=== PATIENT | male | born 1960 | race Caucasian/White ===

== ENCOUNTER 2018-01-21 11:13 | Inpatient (IN) ==
[2018-01-21] MEDS ORDERED: Ipratropium/Albuterol Neb 3 ML IH ONE (11:20)
[2018-01-21] MEDS ORDERED: predniSONE 20 MG TABLET PO ONE (11:20)
--- NOTE | 2018-01-21 11:22 | Emergency Department Note ---
Disposition Clinical Impression: Alcoholic intoxication, Depression, Accelerated hypertension, COPD exacerbation , Hyponatremia, Asymptomatic hypertension, Alcohol abuse Disposition: Admitted As Inpatient Condition: Good General Adult HPI - General Stated complaint: high blood pressure/MIGUELITO Time Seen by Provider: 01/21/18 11:15 - Related Data Home Medications Medication Instructions Recorded Confirmed No Known Home Drugs 01/21/18 01/21/18 Allergies Allergy/AdvReac Type Severity Reaction Status Date / Time No Known Allergies Allergy Verified 10/04/15 20:53 Past Medical History - Past Medical History Medical history: Reports: COPD Surgical history: Reports: orthopedic, other Psychiatric history: Reports: other (Alcohol dependence) - Social History Smoking Status: Former smoker Smokeless Tobacco Status: No Alcohol use: Reports: heavy, recent Drug use: Reports: prescription drug abuse Course Vital Signs Temperature 97.6 F 01/21/18 11:18 Pulse Rate 113 01/21/18 11:18 Respiratory Rate 28 01/21/18 11:18 Blood Pressure 214/117 01/21/18 11:18 O2 Sat by Pulse Oximetry 99 01/21/18 11:18 Temperature 97.6 F 01/21/18 11:18 Pulse Rate 102 01/21/18 12:44 Respiratory Rate 15 01/21/18 12:44 Blood Pressure 161/94 01/21/18 12:44 O2 Sat by Pulse Oximetry 95 01/21/18 12:44 Oxygen Delivery Oxygen Delivery Nasal Cannula Medical Decision Making - Lab Data Result diagrams: 01/21/18 11:37 01/21/18 11:37 Lab Results 01/21/18 01/21/18 01/21/18 Range/Units 11:37 11:37 11:37 WBC 5.3 (4.3-11.1) K/mcL RBC 4.91 (4.19-5.50) M/mcL Hgb 15.5 (12.9-16.9) g/dL Hct 46.4 (37.5-50.1) % MCV 94.5 (83.0-100.0) fL MCH 31.6 (28.0-33.3) pg MCHC 33.4 (31.6-35.5) g/dL RDW 13.7 (11.5-14.5) % Plt Count 194 (140-400) K/mcL MPV 9.3 L (9.4-12.4) fL Immature Gran % 0.2 (0-4) % Seg Neutrophils % 52.1 % Lymphocytes % 35.2 % Monocytes % 10.7 % Eosinophils % 0.9 % Basophils % 0.9 % Neutrophils # 2.8 (1.6-8.9) K/mcL Lymphocytes # 1.9 (0.6-4.6) K/mcL Monocytes # 0.6 (0.0-1.3) K/mcL Eosinophils # 0.1 (0.0-0.6) K/mcL Basophils # 0.1 (0.0-0.2) K/mcL PT (9.4-12.1) Seconds INR Sodium 129 L (136-145) mEq/L Potassium 4.5 (3.5-5.1) mEq/L Chloride 91 L (98-107) mEq/L Carbon Dioxide 24 (23-29) mEq/L BUN 6 (6-20) mg/dL Creatinine 0.59 L (0.70-1.30) mg/dL Est GFR ( Amer) > 60 (> 60) Est GFR (Non-Af Amer) > 60 (> 60) BUN/Creatinine Ratio 10 (6-26) Glucose 103 (70-105) mg/dL Calculated Osmolality 266 L (280-300) Calcium 9.2 (8.6-10.3) mg/dL Magnesium (1.6-2.6) mg/dL Total Bilirubin 0.4 (0.3-1.0) mg/dL AST 80 H (13-39) Units/L ALT 71 H (7-52) Units/L Alkaline Phosphatase 76 (34-104) Units/L Troponin I (< 0.04) ng/mL B-Natriuretic Peptide 25 (Less than 100) pg/mL Serum Total Protein 7.9 (6.4-8.9) g/dL Albumin 4.9 (3.5-5.7) g/dL Globulin 3.0 (2.4-3.5) g/dL Albumin/Globulin Ratio 1.6 (1.1-2.2) Urine Color (Yellow) Urine Clarity (Clear) Urine pH (5.0-8.0) pH Units Ur Specific [place] (1.010-1.025) Urine Protein (Neg-Trace) mg/dL Urine Glucose (UA) (Normal) mg/dL Urine Ketones (Negative) mg/dL Urine Blood (Negative) Urine Nitrite (Negative) Urine Bilirubin (Negative) Urine Urobilinogen (Normal) mg/dL Ur Leukocyte Esterase (Negative) Salicylates (15.0-30.0) mg/dL Urine Opiates Screen ([place]=114) ng/mL Acetaminophen (10-20) mcg/mL Ur Barbiturates Screen (Ksurjs=268) ng/mL Ur Phencyclidine Scrn (Cutoff=25) ng/mL Ur Amphetamines Screen (Vamkze=4938) ng/mL U Benzodiazepines Scrn (Aukygm=900) ng/mL Urine Cocaine Screen (Cutoff= 300) ng/mL U Marijuana (THC) Screen (Cutoff = 50) ng/mL Ur Drug Screen Interp Ethyl Alcohol (Less than 10) mg/dL 01/21/18 01/21/18 01/21/18 Range/Units 11:37 11:37 12:01 WBC (4.3-11.1) K/mcL RBC (4.19-5.50) M/mcL Hgb (12.9-16.9) g/dL Hct (37.5-50.1) % MCV (83.0-100.0) fL MCH (28.0-33.3) pg MCHC (31.6-35.5) g/dL RDW (11.5-14.5) % Plt Count (140-400) K/mcL MPV (9.4-12.4) fL Immature Gran % (0-4) % Seg Neutrophils % % Lymphocytes % % Monocytes % % Eosinophils % % Basophils % % Neutrophils # (1.6-8.9) K/mcL Lymphocytes # (0.6-4.6) K/mcL Monocytes # (0.0-1.3) K/mcL Eosinophils # (0.0-0.6) K/mcL Basophils # (0.0-0.2) K/mcL PT 10.6 (9.4-12.1) Seconds INR 0.9 Sodium (136-145) mEq/L Potassium (3.5-5.1) mEq/L Chloride (98-107) mEq/L Carbon Dioxide (23-29) mEq/L BUN (6-20) mg/dL Creatinine (0.70-1.30) mg/dL Est GFR ( Amer) (> 60) Est GFR (Non-Af Amer) (> 60) BUN/Creatinine Ratio (6-26) Glucose (70-105) mg/dL Calculated Osmolality (280-300) Calcium (8.6-10.3) mg/dL Magnesium 2.1 (1.6-2.6) mg/dL Total Bilirubin (0.3-1.0) mg/dL AST (13-39) Units/L ALT (7-52) Units/L Alkaline Phosphatase (34-104) Units/L Troponin I 0.03 (< 0.04) ng/mL B-Natriuretic Peptide (Less than 100) pg/mL Serum Total Protein (6.4-8.9) g/dL Albumin (3.5-5.7) g/dL Globulin (2.4-3.5) g/dL Albumin/Globulin Ratio (1.1-2.2) Urine Color Yellow (Yellow) Urine Clarity Clear (Clear) Urine pH 6.0 (5.0-8.0) pH Units Ur Specific [place] 1.013 (1.010-1.025) Urine Protein Negative (Neg-Trace) mg/dL Urine Glucose (UA) Normal (Normal) mg/dL Urine Ketones Negative (Negative) mg/dL Urine Blood Negative (Negative) Urine Nitrite Negative (Negative) Urine Bilirubin Negative (Negative) Urine Urobilinogen Normal (Normal) mg/dL Ur Leukocyte Esterase Negative (Negative) Salicylates < 2.5 L (15.0-30.0) mg/dL Urine Opiates Screen (Dknwnf=458) ng/mL Acetaminophen 15 (10-20) mcg/mL Ur Barbiturates Screen (Odkpjc=772) ng/mL Ur Phencyclidine Scrn (Cutoff=25) ng/mL Ur Amphetamines Screen (Jdcpvh=3399) ng/mL U Benzodiazepines Scrn (Fcapri=587) ng/mL Urine Cocaine Screen (Cutoff= 300) ng/mL U Marijuana (THC) Screen (Cutoff = 50) ng/mL Ur Drug Screen Interp Ethyl Alcohol 228 H (Less than 10) mg/dL 01/21/18 Range/Units 12:01 WBC (4.3-11.1) K/mcL RBC (4.19-5.50) M/mcL Hgb (12.9-16.9) g/dL Hct (37.5-50.1) % MCV (83.0-100.0) fL MCH (28.0-33.3) pg MCHC (31.6-35.5) g/dL RDW (11.5-14.5) % Plt Count (140-400) K/mcL MPV (9.4-12.4) fL Immature Gran % (0-4) % Seg Neutrophils % % Lymphocytes % % Monocytes % % Eosinophils % % Basophils % % Neutrophils # (1.6-8.9) K/mcL Lymphocytes # (0.6-4.6) K/mcL Monocytes # (0.0-1.3) K/mcL Eosinophils # (0.0-0.6) K/mcL Basophils # (0.0-0.2) K/mcL PT (9.4-12.1) Seconds INR Sodium (136-145) mEq/L Potassium (3.5-5.1) mEq/L Chloride (98-107) mEq/L Carbon Dioxide (23-29) mEq/L BUN (6-20) mg/dL Creatinine (0.70-1.30) mg/dL Est GFR ( Amer) (> 60) Est GFR (Non-Af Amer) (> 60) BUN/Creatinine Ratio (6-26) Glucose (70-105) mg/dL Calculated Osmolality (280-300) Calcium (8.6-10.3) mg/dL Magnesium (1.6-2.6) mg/dL Total Bilirubin (0.3-1.0) mg/dL AST (13-39) Units/L ALT (7-52) Units/L Alkaline Phosphatase (34-104) Units/L Troponin I (< 0.04) ng/mL B-Natriuretic Peptide (Less than 100) pg/mL Serum Total Protein (6.4-8.9) g/dL Albumin (3.5-5.7) g/dL Globulin (2.4-3.5) g/dL Albumin/Globulin Ratio (1.1-2.2) Urine Color (Yellow) Urine Clarity (Clear) Urine pH (5.0-8.0) pH Units Ur Specific [place] (1.010-1.025) Urine Protein (Neg-Trace) mg/dL Urine Glucose (UA) (Normal) mg/dL Urine Ketones (Negative) mg/dL Urine Blood (Negative) Urine Nitrite (Negative) Urine Bilirubin (Negative) Urine Urobilinogen (Normal) mg/dL Ur Leukocyte Esterase (Negative) Salicylates (15.0-30.0) mg/dL Urine Opiates Screen Negative (Nxgpwy=782) ng/mL Acetaminophen (10-20) mcg/mL Ur Barbiturates Screen Negative (Qporuy=605) ng/mL Ur Phencyclidine Scrn Negative (Cutoff=25) ng/mL Ur Amphetamines Screen Negative (Qukzxn=2422) ng/mL U Benzodiazepines Scrn Negative (Kjpawk=949) ng/mL Urine Cocaine Screen Negative (Cutoff= 300) ng/mL U Marijuana (THC) Screen Positive H (Cutoff = 50) ng/mL Ur Drug Screen Interp See Below Ethyl Alcohol (Less than 10) mg/dL Attestation Statement - Attestation Attestation: I examined this patient and my medical decision-making was reviewed with the Resident Physician. I agree with the documented findings, disposition and treatment plan as described except to the extent set forth below. Face to face time provided Patient to ED via EMS from [facility] due to hypertension and dyspnea. He has a known history of active tobacco use and COPD. He is hypertensive and tachypneic upon arrival with increased work of breathing. He also admits to drinking alcohol today and has a history of heavy alcohol use. He is being seen for behavioral issues at the mental health clinic prior to arrival
[2018-01-21] MEDS ORDERED: Folic Acid 1 MG in D5% in Water 50 ML IVPB ONE (11:25)
--- NOTE | 2018-01-21 11:41 | Emergency Department Note ---
Disposition Clinical Impression: Accelerated hypertension, COPD exacerbation, Hyponatremia, Asymptomatic hypertension, Alcohol abuse Alcoholic intoxication Qualifiers: Complication of substance-induced condition: with unspecified complication Qualified Code(s): F10.929 - Alcohol use, unspecified with intoxication, unspecified Depression Qualifiers: Depression Type: unspecified Qualified Code(s): F32.9 - Major depressive disorder, single episode, unspecified Disposition: Admitted As Inpatient Condition: Good Time of Disposition: 12:45 General Adult HPI - General Stated complaint: high blood pressure/MIGUELITO Time Seen by Provider: 01/21/18 11:15 Source: patient, EMS Mode of arrival: EMS Limitations: no limitations Nursing Notes Reviewed: Yes Vital Signs Reviewed: Yes - History of Present Illness HPI Narrative: 57-year-old male history of COPD presents emergency department via EMS with multiple complaints. Patient presents with elevated blood pressure 200/116. He checked in at [facility] hoping to obtain some help with his drinking. He had 9 beers today. States he typically goes through 30 beers every few days. He has gone into alcohol withdrawal in the past and feels similar to this today. He has very labored breathing as well. He states this has been ongoing for several days now and probably since his diagnosis of COPD. He recently had a nebulizer sent to his home but does not wear oxygen at home. He denies any chest pain at this time. There was reports that he also had suicidal ideation which she does deny at this time. Denies any other drug use. He does not take anything for blood pressure. No recent antibiotic or steroid use. He states he was recently admitted at [facility]. - Related Data Home Medications Medication Instructions Recorded Confirmed No Known Home Drugs 01/21/18 01/21/18 Allergies Allergy/AdvReac Type Severity Reaction Status Date / Time No Known Allergies Allergy Verified 10/04/15 20:53 All systems ED: reviewed and negative except as stated. Review of Systems: As Per HPI Constitutional: Denies: fever, chills ENT ED: Denies: congestion Cardiovascular: Denies: chest pain Respiratory: Reports: cough, dyspnea, wheezes. Denies: hemoptysis, sputum production Gastrointestinal: Denies: abdominal pain, nausea, vomiting Genitourinary: Denies: dysuria Musculoskeletal: Denies: back pain Integumentary: Denies: rash, abrasion Neurological: Denies: headache Psychiatric: Reports: depression. Denies: suicidal thoughts, homicidal thoughts , auditory hallucinations, visual hallucinations Past Medical History - Past Medical History Attestation: Yes The following information was validated with the patient. Source: patient Medical history: Reports: COPD Surgical history: Reports: orthopedic, other Psychiatric history: Reports: other (Alcohol dependence) - Social History Smoking Status: Former smoker Smokeless Tobacco Status: No Alcohol use: Reports: heavy, recent Drug use: Reports: prescription drug abuse Physical Exam - General Limitations: no limitations General appearance: alert, anxious, in distress (Mild respiratory), other ( Shaky and slightly tremulous) - Head Head exam: atraumatic, normocephalic, normal inspection - Eye Eye exam: Present: normal appearance, PERRL, EOMI - ENT ENT exam: normal exam, normal oropharynx, mucous membranes moist - Neck Neck exam: Present: normal inspection, full ROM, trachea midline - Chest Chest inspection: Present: normal inspection, symmetric chest wall rise. Absent : tenderness, rash - Respiratory Respiratory exam: Present: respiratory distress, wheezes, prolonged expiratory phase, other (pursed lips, poor tight aeration) - Cardiovascular Cardiovascular exam: Present: normal rhythm, tachycardia, normal heart sounds - Abdominal Exam Abdominal exam: Present: soft, Non-Tender. Absent: tenderness, distention, guarding, rebound, rigidity - Extremities Exam Extremities exam: Present: normal inspection, full ROM, normal capillary refill. Absent: tenderness, pedal edema, calf tenderness - Neurological Exam Neurological exam: Present: alert, oriented X3 - Psychiatric Psychiatric exam: Present: normal affect, anxious - Skin Skin exam: Present: warm, dry, intact, normal color. Absent: rash, cyanosis, diaphoresis Course Course Narrative: Patient presents with likely COPD exacerbation and reports of suicidal ideation as he was sent here from sciatica pain for clearance. On examination he has mild respiratory distress. Pursed lips with prolonged expiratory phase. Tight aeration with poor air movement. He is also tachycardic and there is a report that he may have received a breathing treatment prior to arrival here. He will likely require admission for his accelerated hypertension COPD exacerbation, possible alcohol withdrawal, and need for psychiatric evaluation. He is in agreement with this plan. Thiamine infusion. - Reevaluation(s) Reevaluation #1: Review of his labs show all intoxication to 28. He also has positive for marijuana. He is also hyponatremia 129 which is the same as his most recent prior of value 2 years ago. Suspect this could be likely secondary to be beer potomania given his history of alcohol abuse. He is otherwise asymptomatic interns of his hypertension. Chest pain. Troponin not elevated. EKG without ischemic changes. Chest x-ray consistent with COPD with no focal opacities concerning for pneumonia. On repeat evaluation patient has better aeration after breathing treatment. He remains 95% on room air. He states he feels better but continues to have a prolonged expiratory phase. His blood pressure has spontaneously improved without intervention down to systolic 164. Patient will be admitted for alcohol intoxication, COPD exacerbation, concern for alcohol withdrawal given his history, hypertension and depression. Again patient denies any suicidal ideation Time: 12:46 - Consultations Consultation #1: Spoke with on-call hospitalist rhonda Gr to admit for ETOH intoxication, hypertension, COPD exacerbation. No further orders at this time Time: 12:52 Vital Signs Temperature 97.6 F 01/21/18 11:18 Pulse Rate 113 01/21/18 11:18 Respiratory Rate 28 01/21/18 11:18 Blood Pressure 214/117 01/21/18 11:18 O2 Sat by Pulse Oximetry 99 01/21/18 11:18 Temperature 97.6 F 01/21/18 11:18 Pulse Rate 102 01/21/18 12:44 Respiratory Rate 15 01/21/18 12:44 Blood Pressure 161/94 01/21/18 12:44 O2 Sat by Pulse Oximetry 95 01/21/18 12:44 Oxygen Delivery Oxygen Delivery Nasal Cannula Medical Decision Making - MDM Narrative Medical decision making narrative: Patient was discussed with my attending physician who agrees with ED management and final disposition. They independently evaluated the patient. Please refer to their attestation to this encounter for additional information. This note was generated by [employer] voice recognition software and as a result grammatical or spelling errors may occur using this program. - Medical Records Medical records reviewed: Yes I reviewed the patient's medical records. - Lab Data Lab results reviewed: Yes I reviewed the patient's lab results. Result diagrams: 01/21/18 11:37 01/21/18 11:37 Lab Results 01/21/18 01/21/18 01/21/18 Range/Units 11:37 11:37 11:37 WBC 5.3 (4.3-11.1) K/mcL RBC 4.91 (4.19-5.50) M/mcL Hgb 15.5 (12.9-16.9) g/dL Hct 46.4 (37.5-50.1) % MCV 94.5 (83.0-100.0) fL MCH 31.6 (28.0-33.3) pg MCHC 33.4 (31.6-35.5) g/dL RDW 13.7 (11.5-14.5) % Plt Count 194 (140-400) K/mcL MPV 9.3 L (9.4-12.4) fL Immature Gran % 0.2 (0-4) % Seg Neutrophils % 52.1 % Lymphocytes % 35.2 % Monocytes % 10.7 % Eosinophils % 0.9 % Basophils % 0.9 % Neutrophils # 2.8 (1.6-8.9) K/mcL Lymphocytes # 1.9 (0.6-4.6) K/mcL Monocytes # 0.6 (0.0-1.3) K/mcL Eosinophils # 0.1 (0.0-0.6) K/mcL Basophils # 0.1 (0.0-0.2) K/mcL PT (9.4-12.1) Seconds INR Sodium 129 L (136-145) mEq/L Potassium 4.5 (3.5-5.1) mEq/L Chloride 91 L (98-107) mEq/L Carbon Dioxide 24 (23-29) mEq/L BUN 6 (6-20) mg/dL Creatinine 0.59 L (0.70-1.30) mg/dL Est GFR ( Amer) > 60 (> 60) Est GFR (Non-Af Amer) > 60 (> 60) BUN/Creatinine Ratio 10 (6-26) Glucose 103 (70-105) mg/dL Calculated Osmolality 266 L (280-300) Calcium 9.2 (8.6-10.3) mg/dL Magnesium (1.6-2.6) mg/dL Total Bilirubin 0.4 (0.3-1.0) mg/dL AST 80 H (13-39) Units/L ALT 71 H (7-52) Units/L Alkaline Phosphatase 76 (34-104) Units/L Troponin I (< 0.04) ng/mL B-Natriuretic Peptide 25 (Less than 100) pg/mL Serum Total Protein 7.9 (6.4-8.9) g/dL Albumin 4.9 (3.5-5.7) g/dL Globulin 3.0 (2.4-3.5) g/dL Albumin/Globulin Ratio 1.6 (1.1-2.2) Urine Color (Yellow) Urine Clarity (Clear) Urine pH (5.0-8.0) pH Units Ur Specific [place] (1.010-1.025) Urine Protein (Neg-Trace) mg/dL Urine Glucose (UA) (Normal) mg/dL Urine Ketones (Negative) mg/dL Urine Blood (Negative) Urine Nitrite (Negative) Urine Bilirubin (Negative) Urine Urobilinogen (Normal) mg/dL Ur Leukocyte Esterase (Negative) Salicylates (15.0-30.0) mg/dL Urine Opiates Screen (Nnyxuo=746) ng/mL Acetaminophen (10-20) mcg/mL Ur Barbiturates Screen (Uluuzb=782) ng/mL Ur Phencyclidine Scrn (Cutoff=25) ng/mL Ur Amphetamines Screen (Fkpujk=3151) ng/mL U Benzodiazepines Scrn (Qadxym=243) ng/mL Urine Cocaine Screen (Cutoff= 300) ng/mL U Marijuana (THC) Screen (Cutoff = 50) ng/mL Ur Drug Screen Interp Ethyl Alcohol (Less than 10) mg/dL 01/21/18 01/21/18 01/21/18 Range/Units 11:37 11:37 12:01 WBC (4.3-11.1) K/mcL RBC (4.19-5.50) M/mcL Hgb (12.9-16.9) g/dL Hct (37.5-50.1) % MCV (83.0-100.0) fL MCH (28.0-33.3) pg MCHC (31.6-35.5) g/dL RDW (11.5-14.5) % Plt Count (140-400) K/mcL MPV (9.4-12.4) fL Immature Gran % (0-4) % Seg Neutrophils % % Lymphocytes % % Monocytes % % Eosinophils % % Basophils % % Neutrophils # (1.6-8.9) K/mcL Lymphocytes # (0.6-4.6) K/mcL Monocytes # (0.0-1.3) K/mcL Eosinophils # (0.0-0.6) K/mcL Basophils # (0.0-0.2) K/mcL PT 10.6 (9.4-12.1) Seconds INR 0.9 Sodium (136-145) mEq/L Potassium (3.5-5.1) mEq/L Chloride (98-107) mEq/L Carbon Dioxide (23-29) mEq/L BUN (6-20) mg/dL Creatinine (0.70-1.30) mg/dL Est GFR ( Amer) (> 60) Est GFR (Non-Af Amer) (> 60) BUN/Creatinine Ratio (6-26) Glucose (70-105) mg/dL Calculated Osmolality (280-300) Calcium (8.6-10.3) mg/dL Magnesium 2.1 (1.6-2.6) mg/dL Total Bilirubin (0.3-1.0) mg/dL AST (13-39) Units/L ALT (7-52) Units/L Alkaline Phosphatase (34-104) Units/L Troponin I 0.03 (< 0.04) ng/mL B-Natriuretic Peptide (Less than 100) pg/mL Serum Total Protein (6.4-8.9) g/dL Albumin (3.5-5.7) g/dL Globulin (2.4-3.5) g/dL Albumin/Globulin Ratio (1.1-2.2) Urine Color Yellow (Yellow) Urine Clarity Clear (Clear) Urine pH 6.0 (5.0-8.0) pH Units Ur Specific [place] 1.013 (1.010-1.025) Urine Protein Negative (Neg-Trace) mg/dL Urine Glucose (UA) Normal (Normal) mg/dL Urine Ketones Negative (Negative) mg/dL Urine Blood Negative (Negative) Urine Nitrite Negative (Negative) Urine Bilirubin Negative (Negative) Urine Urobilinogen Normal (Normal) mg/dL Ur Leukocyte Esterase Negative (Negative) Salicylates < 2.5 L (15.0-30.0) mg/dL Urine Opiates Screen (Vwabmd=148) ng/mL Acetaminophen 15 (10-20) mcg/mL Ur Barbiturates Screen (Fotwwl=645) ng/mL Ur Phencyclidine Scrn (Cutoff=25) ng/mL Ur Amphetamines Screen (Imoqie=3637) ng/mL U Benzodiazepines Scrn (Fyybxw=444) ng/mL Urine Cocaine Screen (Cutoff= 300) ng/mL U Marijuana (THC) Screen (Cutoff = 50) ng/mL Ur Drug Screen Interp Ethyl Alcohol 228 H (Less than 10) mg/dL 01/21/18 Range/Units 12:01 WBC (4.3-11.1) K/mcL RBC (4.19-5.50) M/mcL Hgb (12.9-16.9) g/dL Hct (37.5-50.1) % MCV (83.0-100.0) fL MCH (28.0-33.3) pg MCHC (31.6-35.5) g/dL RDW (11.5-14.5) % Plt Count (140-400) K/mcL MPV (9.4-12.4) fL Immature Gran % (0-4) % Seg Neutrophils % % Lymphocytes % % Monocytes % % Eosinophils % % Basophils % % Neutrophils # (1.6-8.9) K/mcL Lymphocytes # (0.6-4.6) K/mcL Monocytes # (0.0-1.3) K/mcL Eosinophils # (0.0-0.6) K/mcL Basophils # (0.0-0.2) K/mcL PT (9.4-12.1) Seconds INR Sodium (136-145) mEq/L Potassium (3.5-5.1) mEq/L Chloride (98-107) mEq/L Carbon Dioxide (23-29) mEq/L BUN (6-20) mg/dL Creatinine (0.70-1.30) mg/dL Est GFR ( Amer) (> 60) Est GFR (Non-Af Amer) (> 60) BUN/Creatinine Ratio (6-26) Glucose (70-105) mg/dL Calculated Osmolality (280-300) Calcium (8.6-10.3) mg/dL Magnesium (1.6-2.6) mg/dL Total Bilirubin (0.3-1.0) mg/dL AST (13-39) Units/L ALT (7-52) Units/L Alkaline Phosphatase (34-104) Units/L Troponin I (< 0.04) ng/mL B-Natriuretic Peptide (Less than 100) pg/mL Serum Total Protein (6.4-8.9) g/dL Albumin (3.5-5.7) g/dL Globulin (2.4-3.5) g/dL Albumin/Globulin Ratio (1.1-2.2) Urine Color (Yellow) Urine Clarity (Clear) Urine pH (5.0-8.0) pH Units Ur Specific [place] (1.010-1.025) Urine Protein (Neg-Trace) mg/dL Urine Glucose (UA) (Normal) mg/dL Urine Ketones (Negative) mg/dL Urine Blood (Negative) Urine Nitrite (Negative) Urine Bilirubin (Negative) Urine Urobilinogen (Normal) mg/dL Ur Leukocyte Esterase (Negative) Salicylates (15.0-30.0) mg/dL Urine Opiates Screen Negative (Qitkgo=334) ng/mL Acetaminophen (10-20) mcg/mL Ur Barbiturates Screen Negative (Erfkjb=206) ng/mL Ur Phencyclidine Scrn Negative (Cutoff=25) ng/mL Ur Amphetamines Screen Negative (Gjusga=1610) ng/mL U Benzodiazepines Scrn Negative (Tbenip=191) ng/mL Urine Cocaine Screen Negative (Cutoff= 300) ng/mL U Marijuana (THC) Screen Positive H (Cutoff = 50) ng/mL Ur Drug Screen Interp See Below Ethyl Alcohol (Less than 10) mg/dL - Radiology Data Radiology results reviewed: Yes I reviewed the patient's radiology results. Chest X-Ray 01/21/18 11:18 IMPRESSION: 1. Moderate rotation limits evaluation of the mediastinum which otherwise appears normal. 2. COPD with no acute pneumonia. D/ / 01/21/2018 11:50:50 Kaiser Keys MD / david Interpreting Provider: Kaiser Keys MD - EKG Data EKG #1 EKG attestation: Yes I reviewed and interpreted this EKG. EKG results narrative: EKG performed 1128 sinus tachycardia 111 beats per minute, normal axis, no ST elevation or depression, intervals within normal limits. Compared to prior EKG performed 10/05/2015 showing similar consistent findings of sinus tachycardia. No acute ischemic changes.
[2018-01-21 11:49] LABS: Basophils # 0.1 K/mcL (0.0-0.2); Basophils % 0.9 %; Eosinophils # 0.1 K/mcL (0.0-0.6); Eosinophils % 0.9 %; Hematocrit 46.4 % (37.5-50.1); Hemoglobin 15.5 g/dL (12.9-16.9); Immature Granulocytes % 0.2 % (0-4); Lymphocytes # 1.9 K/mcL (0.6-4.6); Lymphocytes % 35.2 %; Mean Corpuscular HGB Conc 33.4 g/dL (31.6-35.5); Mean Corpuscular Hemoglobin 31.6 pg (28.0-33.3); Mean Corpuscular Volume 94.5 fL (83.0-100.0); Mean Platelet Volume 9.3 fL (9.4-12.4); Monocytes # 0.6 K/mcL (0.0-1.3); Monocytes % 10.7 %; Neutrophils # 2.8 K/mcL (1.6-8.9); Platelet Count 194 K/mcL (140-400); Red Blood Count 4.91 M/mcL (4.19-5.50); Red Cell Distribution Width 13.7 % (11.5-14.5); Segmented Neutrophils % 52.1 %
[2018-01-21 11:57] LABS: INR 0.9; Prothrombin Time 10.6 Seconds (9.4-12.1)
[2018-01-21] MEDS ORDERED: Thiamine (B-1) 100 MG, Folic Acid 1 MG, MVI, adult with vitamin K 10 ML in 0.9 % Sodi... IVPB ONE (12:00)
[2018-01-21 12:12] LABS: Bilirubin,Urine Negative (Negative); Blood,Urine Negative (Negative); Clarity,Urine Clear (Clear); Color,Urine Yellow (Yellow); Glucose,Urine (UA) Normal (Normal); Ketones,Urine Negative (Negative); Leukocyte Esterase,Urine Negative (Negative); Nitrite,Urine Negative (Negative); Protein,Urine Negative (Neg-Trace); Specific Gravity,Urine 1.013 (1.010-1.025); Urobilinogen,Urine Normal (Normal)
[2018-01-21 12:15] LABS: Troponin I 0.03 ng/mL (< 0.04)
[2018-01-21 12:40] LABS: Acetaminophen 15 mcg/mL (10-20); Alanine Aminotransferase 71 Units/L (7-52); Albumin 4.9 g/dL (3.5-5.7); Albumin/Globulin Ratio 1.6 (1.1-2.2); Alkaline Phosphatase 76 Units/L (34-104); Aspartate Amino Transferase 80 Units/L (13-39); BUN/Creatinine Ratio 10 (6-26); Bilirubin,Total 0.4 mg/dL (0.3-1.0); Blood Urea Nitrogen 6 mg/dL (6-20); Calcium 9.2 mg/dL (8.6-10.3); Carbon Dioxide 24 mEq/L (23-29); Chloride 91 mEq/L (98-107); Ethanol 228 mg/dL (Less than 10); Glucose 103 mg/dL (70-105); Magnesium 2.1 mg/dL (1.6-2.6); Osmolality,Calculated 266 (280-300); Potassium 4.5 mEq/L (3.5-5.1); Salicylate < 2.5 mg/dL (15.0-30.0); Sodium 129 mEq/L (136-145); Total Protein 7.9 g/dL (6.4-8.9); eGFR For Non-African Americans > 60 (> 60)
[2018-01-21 12:44] LABS: Amphetamine Screen,Urine Negative ng/mL (Cutoff=1000); Barbiturate Screen,Urine Negative ng/mL (Cutoff=200); Benzodiazepines Screen,Urine Negative ng/mL (Cutoff=200); Cannabinoid Screen,Urine Positive ng/mL (Cutoff = 50); Cocaine Screen,Urine Negative ng/mL (Cutoff= 300); Opiate Screen,Urine Negative ng/mL (Cutoff=300); Phencyclidine Screen,Urine Negative ng/mL (Cutoff=25)
[2018-01-21] MEDS ORDERED: Naloxone 0.4 MG/ML INJ IVP PRN (13:24)
[2018-01-21] MEDS ORDERED: Ondansetron ODT 4 MG TAB.RAPDIS SL PRN (13:24)
[2018-01-21] MEDS ORDERED: *HR* Promethazine 25 MG/ML VIAL IVP PRN (13:30)
[2018-01-21] MEDS: *HR* LORazepam 2 MG/ML VIAL IVP PRN ×4 (14:03→21:14)
--- NOTE | 2018-01-21 14:09 | Internal Med History&Physical ---
Date of Encounter: 01/21/18 Time of Encounter: 13:30 Internal Medicine - H&P: HPI Chief complaint: Alcohol intoxication and worsening shortness of breath Admitted From: Emergency Dept Plans for Post Hospital Care: Home History of present illness: Mr. Martínez is a 57 year old male with a known past medical history of COPD, not on home oxygen dependent, hypertension, chronic tobacco dependence, substance abuse, chronic alcoholic dependence holdings almost to 24 to 30 beers everyday, who had his last alcohol this morning before he came to the ER presented to the ER today complaining about he wants to quit drinking alcohol. Also he has been having worsening shortness of breath from last 2 to 3 days which have not improved even after using more frequent nebulizers at home. He denied any sick contacts at home. He denied any cough/expectoration. He does smoke one pack per day. When he first presented to the ER patient was very hypoxic and in severe respiratory distress. He was required 6 L oxygen initially through nasal cannula, currently he is at 2 L O2. He does have uncontrolled blood pressure initially BP @ 214/117 Past Med Surg Social Fam HX - Past Medical History Medical history: COPD Psychiatric history: other (Alcohol dependence) - Past Surgical History Surgical History: orthopedic, other - Social History Smoking Status: Former smoker Smokeless Tobacco Status: No Alcohol use: heavy, recent Drug use: prescription drug abuse - Family History Mother Hx Family Neurologic Disorders: Yes (dementia) Father Living Status: Still Living Internal Medicine - H&P: Meds No Known Home Drugs 01/21/18 [History] 3 Allergy/AdvReac Type Severity Reaction Status Date / Time No Known Allergies Allergy Verified 10/04/15 20:53 All Systems PM: A 10-system review of systems was performed and is negative for pertinent findings except as documented above in the HPI. Review of systems: All the systems are reviewed everything is benign except the systems and symptoms I mentioned in the history of present illness - Constitutional Vitals: Temp Pulse Resp BP Pulse Ox 97.6 F 102 15 161/94 95 01/21/18 11:18 01/21/18 12:44 01/21/18 12:44 01/21/18 12:44 01/21/18 12:44 General appearance: Present: cooperative, disheveled, mild distress, A&O X 3, answers questions appropriately Exam: See below - Head Head exam: Present: atraumatic, normal inspection - Neck Neck exam general surgery: Present: supple - Respiratory Respiratory exam: Present: decreased breath sounds, respiratory distress ( Moderate), wheezes (Severe, diffuse wheezing bilaterally). Absent: rales, rhonchi - Cardiovascular Cardiovascular exam: Present: RRR, +S1, +S2, tachycardia - GI/Abdominal GI/Abdominal exam: Present: normal bowel sounds, soft. Absent: rebound, rigid, tenderness - Extremities Exam Extremities exam: Absent: calf tenderness, pedal edema, tenderness - Back Exam Back exam: Absent: CVA tenderness (L), CVA tenderness (R) - Neurological Exam Neurological exam: Present: alert, oriented X3 - Psychiatric Psychiatric exam: Present: normal affect, normal mood - Skin Skin exam: Absent: rash Internal Med - H&P Results - Labs CBC & Chem 7: 01/21/18 11:37 01/21/18 11:37 - Assessment and plan (1) Acute respiratory distress Current Visit: Yes Status: Acute Assessment and plan: Admit the pt into Tele His hypoxia seems to be improved try to wean him off the oxygen as he tolerates he is high risk patient need close monitoring on tele and does need to stay in the hospital more than 2 to 3 nights due to his complex medical problems (2) COPD exacerbation Current Visit: Yes Status: Acute Assessment and plan: Started him on high dose IV steroids Cont SRINI duoneb Q4h Started him on prophylactic antibiotic levofloxacin 500 mg PO daily times 3 days (3) Alcoholic intoxication Current Visit: Yes Status: Acute Assessment and plan: Reviewed his alcohol level @ 228 UDS positive for marijuana he is high risk to develop DTs placed him on surveillance system monitor started him on CIWA protocol Ativan as needed schedule Librium 50 mg Q6H Counseled to quit drinking alcohol banana bag Q daily thiamine, folic acid and multivitamin PO daily social sciences professor consulted to provide alcohol rehab centers information Qualifiers: Complication of substance-induced condition: with unspecified complication Qualified Code(s): F10.929 - Alcohol use, unspecified with intoxication, unspecified (4) Hypertensive urgency Current Visit: Yes Status: Acute Assessment and plan: Most likely due to COPD exacerbation / respiratory distress started him on Norvasc 5 mg PO daily also will put him on hydralazine IV PRN (5) Hyponatremia Current Visit: Yes Status: Acute Assessment and plan: Mild hyponatremia due to dehydration most likely placed him on IV hydration with NS continue close monitoring (6) Alcohol dependence Current Visit: No Status: Acute Qualifiers: Substance use status: in withdrawal Complication of substance-induced condition: uncomplicated Qualified Code(s): F10.230 - Alcohol dependence with withdrawal, uncomplicated (7) Tobacco dependence Current Visit: Yes Status: Acute Assessment and plan: Counseled to quit smoking placed on nicotine patch (8) Substance abuse Current Visit: Yes Status: Acute Assessment and plan: Counseled to quit doing drugs - Time Spent With Patient Total time spent is greater than 50% in coordination of care (as documented) at patient's floor/unit and/or counseling patient:
[2018-01-21] MEDS: 0.9 % Sodium Chloride 1,000 ML IVC SCH (14:28)
[2018-01-21] MEDS: Nicotine 21 MG PATCH.TD24 TD SCH (14:59)
[2018-01-21] MEDS: levoFLOXacin 500 MG TABLET PO SCH (15:23)
[2018-01-21] MEDS: amLODIPine 5 MG TABLET PO SCH (15:23)
[2018-01-21] MEDS: MethylPREDNISolone 40 MG/ML VIAL IVP SCH (15:36)
[2018-01-21] MEDS: Ipratropium/Albuterol Neb 3 ML IH SCH ×3 (16:17→23:11)
[2018-01-21] MEDS: Thiamine (B-1) 100 MG, Folic Acid 1 MG, MVI, adult with vitamin K 10 ML in 0.9 % Sodi... IVPB SCH (18:28)
[2018-01-21] MEDS: *HR* HYDROcodone/Acet 5/325 mg TABLET PO PRN (22:21)
[2018-01-22] MEDS: *HR* LORazepam 2 MG/ML VIAL IVP PRN ×6 (00:07→13:13)
[2018-01-22] MEDS: MethylPREDNISolone 40 MG/ML VIAL IVP SCH ×3 (00:09→16:07)
[2018-01-22] MEDS: 0.9 % Sodium Chloride 1,000 ML IVC SCH (00:10)
[2018-01-22] MEDS: Melatonin 3 MG TABLET PO PRN (02:26)
[2018-01-22] MEDS: Ipratropium/Albuterol Neb 3 ML IH SCH ×3 (03:40→12:00)
[2018-01-22] MEDS: *HR* Enoxaparin 40 MG/0.4 ML SYRINGE SQ SCH (06:24)
[2018-01-22 08:03] LABS: Alanine Aminotransferase 52 Units/L (7-52); Albumin 4.2 g/dL (3.5-5.7); Albumin/Globulin Ratio 1.6 (1.1-2.2); Alkaline Phosphatase 62 Units/L (34-104); Aspartate Amino Transferase 43 Units/L (13-39); BUN/Creatinine Ratio 11 (6-26); Bilirubin,Total 0.4 mg/dL (0.3-1.0); Blood Urea Nitrogen 6 mg/dL (6-20); Carbon Dioxide 26 mEq/L (23-29); Chloride 99 mEq/L (98-107); Globulin 2.6 g/dL (2.4-3.5); Glucose 213 mg/dL (70-105); Magnesium 1.9 mg/dL (1.6-2.6); Osmolality,Calculated 282 (280-300); Phosphorous 3.2 mg/dL (2.7-4.5); Potassium 3.6 mEq/L (3.5-5.1); Sodium 134 mEq/L (136-145); Total Protein 6.8 g/dL (6.4-8.9); eGFR For Non-African Americans > 60 (> 60)
[2018-01-22 08:23] LABS: Hematocrit 40.8 % (37.5-50.1); Immature Granulocytes % 0.8 % (0-4); Lymphocytes # 0.4 K/mcL (0.6-4.6); Lymphocytes % 14.5 %; Mean Corpuscular HGB Conc 33.8 g/dL (31.6-35.5); Mean Corpuscular Hemoglobin 31.9 pg (28.0-33.3); Mean Corpuscular Volume 94.2 fL (83.0-100.0); Mean Platelet Volume 10.2 fL (9.4-12.4); Monocytes # 0.1 K/mcL (0.0-1.3); Neutrophils # 2.1 K/mcL (1.6-8.9); Platelet Count 136 K/mcL (140-400); Red Blood Count 4.33 M/mcL (4.19-5.50); Red Cell Distribution Width 13.8 % (11.5-14.5); Segmented Neutrophils % 82.7 %
[2018-01-22] MEDS: levoFLOXacin 500 MG TABLET PO SCH (08:37)
[2018-01-22] MEDS: Thiamine (B-1) 100 MG TABLET PO SCH (08:37)
[2018-01-22] MEDS: amLODIPine 5 MG TABLET PO SCH (08:37)
[2018-01-22] MEDS: Vitamin B Complex/Vit C/Vit E 1 EACH TABLET PO SCH (08:37)
[2018-01-22] MEDS: Folic Acid 1 MG TABLET PO SCH (08:37)
[2018-01-22] MEDS: Nicotine 21 MG PATCH.TD24 TD SCH (08:37)
[2018-01-22 09:09] LABS: Hemoglobin 13.8 g/dL (12.9-16.9)
[2018-01-22] MEDS: *HR* HYDROcodone/Acet 5/325 mg TABLET PO PRN ×2 (10:45→19:43)
--- NOTE | 2018-01-22 13:03 | Internal Med Progress Note ---
<Sander Peter - Last Filed: 01/22/18 16:20> Hospitalist Progress Note - Encounter Date of Encounter: 01/22/18 Time of Encounter: 09:00 - Subjective Interval History: Patient was seen and examined at bedside; he reports that he mild shortness of breath. patient appears to be in mild distress; reports back and neck pain, which he reports are chronic issues for him. has been shaking quite continuously since admission, receiving Ativan prn doses almost regularly Q4H. He denies CP or cough. He admits to having chest congestion. Pt is currently on 3L O2 nasal cannula currently satting 98%. Later in the day, Patient went into delirium tremens; transferred to the ICU and started on precedex drip. - Exam Vitals: Temp Pulse Resp BP Pulse Ox 98.5 F 117 18 154/91 99 01/22/18 09:59 01/22/18 09:59 01/22/18 09:59 01/22/18 09:59 01/22/18 09:59 Exam: General: Whole body tremors, appears mildly distressed due to back pain Head exam: atraumatic, normocephalic Neck: supple, trachea midline Respiratory: Decreased breath sounds bilaterally, no wheezes, rales, rhonchi Cardiovascular: RRR, +S1, +S2, tachycardic, no murmurs, rubs, or gallops GI/Abdominal: Normoactive bowel sounds, soft, nontender Extremities: No pedal edema, tenderness Back: Restricted ROM in all planes, pain in lumbar region Neurological exam: Present: alert, oriented X3 Psychiatric: Present: normal affect, normal mood Skin: rash - Assessment and Plan (1) Delirium tremens Current Visit: Yes Status: Acute Assessment and Plan: Patient developed DT; known history of alcohol abuse - Due to patient's condition, he was transferred to the ICU Pt consumes 24-30 beers per day and arrived to ED with alcohol level of 228 (H) - Pt has been counseled regarding cessation and expresses wishes to do so - CIWA Score 10 Plan: - Precedex drip - Cardiac monitoring - Librium 50 mg Q6H - Ativan prn - Banana Bag QD - Supplement pt with: Thiamine, multivitamin, Folate PO - Phlebotomist Lab Assistant consulted regarding possible alcohol rehabilitation programs following d/c (2) Acute respiratory failure with hypoxia Current Visit: Yes Status: Acute Assessment and Plan: Upon arrival pt required 6L O2 despite not using oxygen at home Continues to have mild shortness of breath and chest congestion Plan: - Pt is currently at 3L O2 via nasal cannula with the ultimate goal of weaning pt off O2 entirely - Levaquin 500 milligrams by mouth daily x3 days as prophylaxis - Solu-Medrol 40 mg IV every 8 hours - Duonebs (3) COPD exacerbation Current Visit: Yes Status: Acute Assessment and Plan: CXR demonstrated findings consistent with COPD without evidence of infection Plan: - Levaquin 500 milligrams by mouth daily x3 days as prophylaxis - Solu-Medrol 40 mg IV every 8 hours - Duonebs (4) Hypertensive urgency Current Visit: Yes Status: Acute Assessment and Plan: Pt presented with bp 214/117 - Most likely due to COPD exacerbation/respiratory distress Plan: - Norvasc 5 mg PO daily - Hydralazine IV PRN (5) Hyponatremia Current Visit: Yes Status: Acute Assessment and Plan: Pt presented with mild hyponatremia 129 (L) - Today hyponatremia is up to 134 (L) Plan: - IV hydration with NS - Monitor (6) Back pain Current Visit: Yes Status: Acute Assessment and Plan: [place], Ultram as needed DVT Prophylaxis: Lovenox 40 mg subcutaneous 0600 - Time Spent with Patient Total time spent is greater than 50% in coordination of care (as documented) at patient's floor/unit and/or counseling patient: less than 15 minutes Internal Medicine: Result - Labs CBC & Chem 7: 01/22/18 07:06 01/22/18 07:06 Labs: Short CBC 01/22/18 Range/Units 07:06 WBC 2.5 L D (4.3-11.1) K/mcL Hgb 13.8 D (12.9-16.9) g/dL Hct 40.8 (37.5-50.1) % Plt Count 136 L (140-400) K/mcL Neutrophils # 2.1 (1.6-8.9) K/mcL BMP 01/22/18 07:06 Sodium 134 L Potassium 3.6 Chloride 99 Carbon Dioxide 26 BUN 6 Creatinine 0.55 L Glucose 213 H Calcium 9.0 Liver Function 01/22/18 Range/Units 07:06 Total Bilirubin 0.4 (0.3-1.0) mg/dL AST 43 H (13-39) Units/L ALT 52 (7-52) Units/L Alkaline Phosphatase 62 (34-104) Units/L Albumin 4.2 (3.5-5.7) g/dL - ABG Interpretation ABG results: PT/INR, D-dimer PT 10.6 Seconds (9.4-12.1) 01/21/18 11:37 Consult Discharge Plan - Plan Referrals: NONE,PCP [Primary Care Provider] - <Mirta Foley - Last Filed: 01/22/18 17:29> Hospitalist Progress Note - Encounter Date of Encounter: 01/22/18 - Exam Vitals: Temp Pulse Resp BP Pulse Ox 98 F 79 19 184/107 97 01/22/18 14:55 01/22/18 17:00 01/22/18 17:00 01/22/18 17:00 01/22/18 17:00 - Assessment and Plan (1) Acute respiratory distress Current Visit: Yes Status: Acute (2) COPD exacerbation Current Visit: Yes Status: Acute (3) Alcoholic intoxication Current Visit: Yes Status: Acute (4) Hypertensive urgency Current Visit: Yes Status: Acute (5) Hyponatremia Current Visit: Yes Status: Acute (6) Alcohol dependence Current Visit: No Status: Acute (7) Tobacco dependence Current Visit: Yes Status: Acute (8) Substance abuse Current Visit: Yes Status: Acute - Time Spent with Patient Total time spent is greater than 50% in coordination of care (as documented) at patient's floor/unit and/or counseling patient: Internal Medicine: Result - Labs CBC & Chem 7: 01/22/18 07:06 01/22/18 07:06 Labs: Short CBC 01/22/18 Range/Units 07:06 WBC 2.5 L D (4.3-11.1) K/mcL Hgb 13.8 D (12.9-16.9) g/dL Hct 40.8 (37.5-50.1) % Plt Count 136 L (140-400) K/mcL Neutrophils # 2.1 (1.6-8.9) K/mcL BMP 01/22/18 07:06 Sodium 134 L Potassium 3.6 Chloride 99 Carbon Dioxide 26 BUN 6 Creatinine 0.55 L Glucose 213 H Calcium 9.0 Liver Function 01/22/18 Range/Units 07:06 Total Bilirubin 0.4 (0.3-1.0) mg/dL AST 43 H (13-39) Units/L ALT 52 (7-52) Units/L Alkaline Phosphatase 62 (34-104) Units/L Albumin 4.2 (3.5-5.7) g/dL - ABG Interpretation ABG results: PT/INR, D-dimer PT 10.6 Seconds (9.4-12.1) 01/21/18 11:37 - Attending Attestation I examined this patient and my medical decision-making was reviewed with the Resident Physician Dr. Peter. I agree with the documented findings, disposition and treatment plan as described except to the extent set forth below. Mr. Martínez is a 57 year old male with a known past medical history of COPD, not on home oxygen dependent, hypertension, chronic tobacco dependence, substance abuse, chronic alcoholic dependence holdings almost to 24 to 30 beers everyday, who had his last alcohol this morning before he came to the ER presented to the ER today complaining about he wants to quit drinking alcohol. Also he has been having worsening shortness of breath from last 2 to 3 days which have not improved even after using more frequent nebulizers at home. He was admitted in the hospital and started him on IV steroids and frequent neb treatments. For his alcohol intoxication and a possible DTs patient was placed on secured entrance monitor and started him on Ativan as needed. Today his tremors seems to be worsening and looks like he is gong through active DT's. So pt was transferred to step down unit and started him on Precedex gtt. Cont close monitoring. Cut back on steroids since his wheezing better today. <Mirta Foley - Last Filed: 01/22/18 17:29> (3) Alcoholic intoxication Qualifiers: Complication of substance-induced condition: with unspecified complication Qualified Code(s): F10.929 - Alcohol use, unspecified with intoxication, unspecified (6) Alcohol dependence Qualifiers: Substance use status: in withdrawal Complication of substance-induced condition: uncomplicated Qualified Code(s): F10.230 - Alcohol dependence with withdrawal, uncomplicated
[2018-01-22] MEDS ORDERED: Dexmedetomidine HCl 400 MCG/100 ML MLS IVC ONE (13:25)
--- NOTE | 2018-01-22 14:27 | Electrocardiograph Report ---
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
[2018-01-22] MEDS: Levalbuterol Neb 1.25 MG/3 ML IH SCH ×2 (16:20→22:40)
[2018-01-22] MEDS: Thiamine (B-1) 100 MG, Folic Acid 1 MG, MVI, adult with vitamin K 10 ML in 0.9 % Sodi... IVPB SCH (17:49)
[2018-01-23] MEDS ORDERED: Ipratropium/Albuterol Neb 3 ML ONE (00:08)
[2018-01-23] MEDS: Ipratropium/Albuterol Neb 3 ML IH PRN ×2 (00:09→19:30)
[2018-01-23] MEDS: Dexmedetomidine HCl 400 MCG/100 ML MLS IVC SCH ×3 (00:15→20:42)
[2018-01-23] MEDS: traMADol 50 MG TABLET PO PRN (00:16)
[2018-01-23] MEDS ORDERED: MethylPREDNISolone 40 MG/ML VIAL IVP SCH (04:00)
[2018-01-23] MEDS: Levalbuterol Neb 1.25 MG/3 ML IH SCH ×4 (04:01→21:26)
[2018-01-23] MEDS: *HR* Enoxaparin 40 MG/0.4 ML SYRINGE SQ SCH (05:03)
[2018-01-23 06:00] LABS: Eosinophils % 0.1 %; Hematocrit 43.8 % (37.5-50.1); Hemoglobin 14.5 g/dL (12.9-16.9); Immature Granulocytes % 0.6 % (0-4); Lymphocytes # 0.6 K/mcL (0.6-4.6); Lymphocytes % 6.1 %; Mean Corpuscular HGB Conc 33.1 g/dL (31.6-35.5); Mean Corpuscular Hemoglobin 31.8 pg (28.0-33.3); Mean Corpuscular Volume 96.1 fL (83.0-100.0); Mean Platelet Volume 10.2 fL (9.4-12.4); Monocytes # 0.5 K/mcL (0.0-1.3); Monocytes % 5.2 %; Neutrophils # 9.1 K/mcL (1.6-8.9); Platelet Count 145 K/mcL (140-400); Red Blood Count 4.56 M/mcL (4.19-5.50); Red Cell Distribution Width 14.2 % (11.5-14.5)
[2018-01-23 06:21] LABS: BUN/Creatinine Ratio 18 (6-26); Blood Urea Nitrogen 9 mg/dL (6-20); Calcium 9.4 mg/dL (8.6-10.3); Carbon Dioxide 26 mEq/L (23-29); Chloride 102 mEq/L (98-107); Glucose 147 mg/dL (70-105); Osmolality,Calculated 283 (280-300); Sodium 136 mEq/L (136-145); eGFR For Non-African Americans > 60 (> 60)
[2018-01-23] MEDS: amLODIPine 5 MG TABLET PO SCH (07:57)
[2018-01-23] MEDS: Folic Acid 1 MG TABLET PO SCH (07:57)
[2018-01-23] MEDS: levoFLOXacin 500 MG TABLET PO SCH (07:57)
[2018-01-23] MEDS: Vitamin B Complex/Vit C/Vit E 1 EACH TABLET PO SCH (07:57)
[2018-01-23] MEDS: Thiamine (B-1) 100 MG TABLET PO SCH (07:57)
[2018-01-23] MEDS: *HR* LORazepam 2 MG/ML VIAL IVP PRN (08:05)
--- NOTE | 2018-01-23 10:29 | Internal Med Progress Note ---
<Kaitlyn Rodríguez - Last Filed: 01/23/18 11:39> Hospitalist Progress Note - Encounter Date of Encounter: 01/23/18 Time of Encounter: 09:20 - Subjective Interval History: Patient seen and examined. No acute events overnight. He is sleeping comfortably in bed. Patient is alert and oriented x3. He states he feels tired and sleepy. Admits shortness of breath. Denies shaking and seizures. Denies diaphoresis. Denies fever, chills. Denies chest pain. Denies abdominal pain, nausea/vomiting, diarrhea/constipation. Denies swelling. - Exam Vitals: Temp Pulse Resp BP Pulse Ox 97.4 F L 90 20 125/80 97 01/23/18 07:52 01/23/18 07:52 01/23/18 07:52 01/23/18 07:52 01/23/18 07:52 Exam: General: Normal body habitus. Alert and oriented x3. No acute distress. No tremors. Head: atraumatic, normocephalic. Eye: pupils equal and round. Sclera anicteric. EOMI. Mouth: oral mucosa dry. Neck: supple. Trachea midline. Lungs: CTAB. No rhonchi, rales or wheezes. Labored with abdominal breathing. Oxygen saturation 84% on 3L nasal cannula at time of visit. Cardiovascular: Normal S1 & S2. No rubs or gallops. No JVD. Pulse regular. Abdomen: Soft. Normal bowel sounds. Nondistended, no rigidity. Nontender. Extremities: No deformity, edema or tenderness, no joint swelling or clubbing. Skin: warm, dry, and intact. - Assessment and Plan (1) Acute respiratory distress Current Visit: Yes Status: Acute Assessment and Plan: Upon arrival pt required 6L O2 despite not using oxygen at home Plan: Pt is currently at 3L O2 via nasal cannula with the ultimate goal of weaning pt off O2 entirely (2) COPD exacerbation Current Visit: Yes Status: Acute Assessment and Plan: CXR found COPD with no acute pneumonia Pt on day 3 of antibiotic therapy Plan: SRINI Duoneb Q4H Transitioned from solumedrol to prednisone. Levaquin 500 mg PO QD x3 days as prophylaxis (3) Alcoholic intoxication Current Visit: Yes Status: Acute Assessment and Plan: Pt consumes 24-30 beers per day and arrived to ED with alcohol level of 228 (H) Pt has been counseled regarding cessation and expresses wishes to do so CIWA Score 10 Plan: Cardiac monitoring Librium 50 mg Q6H (Started 01/22) Ativan prn Pt started on Precedex drip (01/22) 7.688 mls/hr 0.5mcg/kg/hr Banana Bag QD to supplement pt with: Thiamine, multivitamin, Folate PO Bench Worker Apprentice consulted regarding possible alcohol rehabilitation programs following d/c (4) Hypertensive urgency Current Visit: Yes Status: Acute Assessment and Plan: Pt presented with bp 214/117 Today BP 125/80 Most likely due to COPD exacerbation/respiratory distress Plan: Norvasc 5 mg PO daily Hydralazine IV PRN (5) Hyponatremia Current Visit: Yes Status: Acute Assessment and Plan: Pt presented with mild hyponatremia 129 (L) Pt was hydrated with IV saline Today resolved at 136 Plan: Monitor (6) Alcohol dependence Current Visit: No Status: Acute (7) Tobacco dependence Current Visit: Yes Status: Acute Assessment and Plan: Counseled to quit smoking placed on nicotine patch (8) Substance abuse Current Visit: Yes Status: Acute Assessment and Plan: Pt presented with UDS positive for marijuana Counseled for cessation DVT Prophylaxis: Lovenox - Time Spent with Patient Total time spent is greater than 50% in coordination of care (as documented) at patient's floor/unit and/or counseling patient: Internal Medicine: Result - Labs CBC & Chem 7: 01/23/18 04:48 01/23/18 04:48 Labs: Short CBC 01/23/18 Range/Units 04:48 WBC 10.3 D (4.3-11.1) K/mcL Hgb 14.5 (12.9-16.9) g/dL Hct 43.8 (37.5-50.1) % Plt Count 145 (140-400) K/mcL Neutrophils # 9.1 H (1.6-8.9) K/mcL BMP 01/23/18 04:48 Sodium 136 Potassium 4.0 Chloride 102 Carbon Dioxide 26 BUN 9 Creatinine 0.49 L Glucose 147 H Calcium 9.4 - ABG Interpretation ABG results: PT/INR, D-dimer PT 10.6 Seconds (9.4-12.1) 01/21/18 11:37 Consult Discharge Plan - Plan Referrals: Mikala Sandra [Advanced Practice Nurse] - (LEFT VOICEMAIL FOR THEM TO CALL BACK ) <Mirta Foley - Last Filed: 01/23/18 16:29> Hospitalist Progress Note - Encounter Date of Encounter: 01/23/18 - Exam Vitals: Temp Pulse Resp BP Pulse Ox 97.8 F 86 18 126/78 95 01/23/18 11:08 01/23/18 11:08 01/23/18 11:08 01/23/18 11:08 01/23/18 12:00 - Assessment and Plan (1) Alcohol dependence Current Visit: No Status: Acute (2) Alcoholic intoxication Current Visit: Yes Status: Acute (3) COPD exacerbation Current Visit: Yes Status: Acute (4) Hyponatremia Current Visit: Yes Status: Acute (5) Acute respiratory distress Current Visit: Yes Status: Acute (6) Hypertensive urgency Current Visit: Yes Status: Acute (7) Tobacco dependence Current Visit: Yes Status: Acute (8) Substance abuse Current Visit: Yes Status: Acute - Time Spent with Patient Total time spent is greater than 50% in coordination of care (as documented) at patient's floor/unit and/or counseling patient: Internal Medicine: Result - Labs CBC & Chem 7: 01/23/18 04:48 01/23/18 04:48 Labs: Short CBC 01/23/18 Range/Units 04:48 WBC 10.3 D (4.3-11.1) K/mcL Hgb 14.5 (12.9-16.9) g/dL Hct 43.8 (37.5-50.1) % Plt Count 145 (140-400) K/mcL Neutrophils # 9.1 H (1.6-8.9) K/mcL BMP 01/23/18 04:48 Sodium 136 Potassium 4.0 Chloride 102 Carbon Dioxide 26 BUN 9 Creatinine 0.49 L Glucose 147 H Calcium 9.4 - ABG Interpretation ABG results: PT/INR, D-dimer PT 10.6 Seconds (9.4-12.1) 01/21/18 11:37 - Attending Attestation I examined this patient and my medical decision-making was reviewed with the Resident Physician Dr. Rodríguez. I agree with the documented findings, disposition and treatment plan as described except to the extent set forth below. Mr. Martínez is a 57 year old male with a known past medical history of COPD, not on home oxygen dependent, hypertension, chronic tobacco dependence, substance abuse, chronic alcoholic dependence holdings almost to 24 to 30 beers everyday, who had his last alcohol this morning before he came to the ER presented to the ER today complaining about he wants to quit drinking alcohol. Also he has been having worsening shortness of breath from last 2 to 3 days which have not improved even after using more frequent nebulizers at home. He was admitted in the hospital and started him on IV steroids and frequent neb treatments. For his alcohol intoxication and a possible DTs patient was placed on quality assurance monitor final and started him on Ativan as needed. Pt went into active DT's 01/22/18, so he was transferred to step down unit and started him on Precedex gtt. Today he feels better, still has mild tremors. cont Precedex gtt and Librium SRINI. Cont close monitoring. Cut back on steroids since his wheezing better today. <Kaitlyn Rodríguez - Last Filed: 01/23/18 11:39> (3) Alcoholic intoxication Qualifiers: Complication of substance-induced condition: with unspecified complication Qualified Code(s): F10.929 - Alcohol use, unspecified with intoxication, unspecified (6) Alcohol dependence Qualifiers: Substance use status: in withdrawal Complication of substance-induced condition: uncomplicated Qualified Code(s): F10.230 - Alcohol dependence with withdrawal, uncomplicated <Mirta Foley - Last Filed: 01/23/18 16:29> (1) Alcohol dependence Qualifiers: Substance use status: in withdrawal Complication of substance-induced condition: uncomplicated Qualified Code(s): F10.230 - Alcohol dependence with withdrawal, uncomplicated (2) Alcoholic intoxication Qualifiers: Complication of substance-induced condition: with unspecified complication Qualified Code(s): F10.929 - Alcohol use, unspecified with intoxication, unspecified
[2018-01-23] MEDS: *HR* HYDROcodone/Acet 5/325 mg TABLET PO PRN (17:33)
[2018-01-23] MEDS: Thiamine (B-1) 100 MG, Folic Acid 1 MG, MVI, adult with vitamin K 10 ML in 0.9 % Sodi... IVPB SCH (18:28)
[2018-01-24] MEDS: Levalbuterol Neb 1.25 MG/3 ML IH SCH ×4 (03:34→21:43)
[2018-01-24] MEDS: *HR* Enoxaparin 40 MG/0.4 ML SYRINGE SQ SCH (06:12)
[2018-01-24] MEDS: Thiamine (B-1) 100 MG TABLET PO SCH (07:38)
[2018-01-24] MEDS: Vitamin B Complex/Vit C/Vit E 1 EACH TABLET PO SCH (07:38)
[2018-01-24] MEDS: amLODIPine 5 MG TABLET PO SCH (07:38)
[2018-01-24] MEDS: Folic Acid 1 MG TABLET PO SCH (07:38)
[2018-01-24] MEDS: Dexmedetomidine HCl 400 MCG/100 ML MLS IVC SCH ×2 (07:38→22:09)
[2018-01-24] MEDS: levoFLOXacin 500 MG TABLET PO SCH (07:38)
--- NOTE | 2018-01-24 07:42 | Internal Med Progress Note ---
<Kaitlyn Rodríguez - Last Filed: 01/24/18 13:45> Hospitalist Progress Note - Encounter Date of Encounter: 01/24/18 Time of Encounter: 07:40 - Subjective Interval History: Patient seen and examined. No acute events overnight. He is sleeping comfortably in bed. Patient is alert and oriented x3. He states he feels tired and sleepy. Patient reports that his dizziness has resolved although he is quite uncomfortable with unspecific neck and back pain. Admits shortness of breath. Denies tremors and seizures. Denies diaphoresis. Denies fever, chills. Denies chest pain. Denies abdominal pain, nausea/vomiting, diarrhea/ constipation. Denies swelling. Patient has no complaints of cough or sleep disturbances. - Exam Vitals: Temp Pulse Resp BP Pulse Ox 97.7 F 84 20 118/75 95 01/24/18 07:32 01/24/18 07:32 01/24/18 07:32 01/24/18 07:32 01/24/18 07:32 Exam: General: Normal body habitus. Drowsy. Alert and oriented x3. No acute distress. No tremors. Head: atraumatic, normocephalic. Eye: pupils equal and round. Sclera anicteric. EOMI. Mouth: oral mucosa dry. Neck: supple. Trachea midline. Lungs: CTAB. No rhonchi, rales or wheezes. No respiratory distress. Oxygen saturation 88% on 3L nasal cannula at time of visit. Cardiovascular: Normal S1 & S2. No rubs or gallops. No JVD. Pulse regular. Abdomen: Soft. Normal bowel sounds. Nondistended, no rigidity. Nontender. Extremities: No deformity, edema or tenderness, no joint swelling or clubbing. Skin: warm, dry, and intact. - Assessment and Plan (1) Acute respiratory distress Current Visit: Yes Status: Acute Assessment and Plan: Upon arrival pt required 6L O2 despite not using oxygen at home Plan: Pt is currently at 3L O2 via nasal cannula with the ultimate goal of weaning pt off O2 entirely (2) COPD exacerbation Current Visit: Yes Status: Acute Assessment and Plan: CXR found COPD with no acute pneumonia Pt on day 4 of antibiotic therapy Plan: SRINI Duoneb Q4H Transitioned from solu-medrol to Prednisone 40 on 10/3. Tomorrow, wean to 30. Last day of Levaquin 500 mg PO QD as prophylaxis. (3) Alcoholic intoxication Current Visit: Yes Status: Acute Assessment and Plan: Pt consumes 24-30 beers per day and arrived to ED with alcohol level of 228 (H) Pt has been counseled regarding cessation and expresses wishes to do so CIWA Score 10 Plan: Cardiac monitoring Librium 50 mg Q6H (Started 01/22). Will taper down Librium after Precedex drip is terminated Ativan prn Pt started on Precedex drip (01/22) 400mcg in 100ml 0.5mcg/kg/hr. Titrate down as tolerated. Banana Bag QD to supplement pt with: Thiamine, multivitamin, Folate PO [employer] consulted regarding possible alcohol rehabilitation programs following d/c (4) Hypertensive urgency Current Visit: Yes Status: Acute Assessment and Plan: Pt presented with bp 214/117 Today BP 125/80 Most likely due to COPD exacerbation/respiratory distress Plan: Norvasc 5 mg PO daily Hydralazine IV PRN (5) Hyponatremia Current Visit: Yes Status: Acute Assessment and Plan: Pt presented with mild hyponatremia 129 (L) Pt was hydrated with IV saline Resolved (01/23) (6) Alcohol dependence Current Visit: No Status: Acute (7) Tobacco dependence Current Visit: Yes Status: Acute Assessment and Plan: Counseled to quit smoking placed on nicotine patch (8) Substance abuse Current Visit: Yes Status: Acute Assessment and Plan: Pt presented with UDS positive for marijuana Counseled for cessation DVT Prophylaxis: Lovenox - Time Spent with Patient Total time spent is greater than 50% in coordination of care (as documented) at patient's floor/unit and/or counseling patient: Internal Medicine: Result - Labs CBC & Chem 7: 01/24/18 07:32 01/24/18 07:32 - ABG Interpretation ABG results: PT/INR, D-dimer PT 10.6 Seconds (9.4-12.1) 01/21/18 11:37 Consult Discharge Plan - Plan Referrals: Mikala Sandra [Advanced Practice Nurse] - 02/01/18 10:20 am () <Mirta Foley - Last Filed: 01/24/18 14:03> Hospitalist Progress Note - Encounter Date of Encounter: 01/24/18 - Exam Vitals: Temp Pulse Resp BP Pulse Ox 98.1 F 109 24 96/81 93 01/24/18 11:00 01/24/18 13:00 01/24/18 13:00 01/24/18 13:00 01/24/18 13:00 - Assessment and Plan (1) Alcohol dependence Current Visit: No Status: Acute (2) Alcoholic intoxication Current Visit: Yes Status: Acute (3) COPD exacerbation Current Visit: Yes Status: Acute (4) Hyponatremia Current Visit: Yes Status: Acute (5) Acute respiratory distress Current Visit: Yes Status: Acute (6) Hypertensive urgency Current Visit: Yes Status: Acute (7) Tobacco dependence Current Visit: Yes Status: Acute (8) Substance abuse Current Visit: Yes Status: Acute - Time Spent with Patient Total time spent is greater than 50% in coordination of care (as documented) at patient's floor/unit and/or counseling patient: Internal Medicine: Result - Labs CBC & Chem 7: 01/24/18 07:32 01/24/18 07:32 Labs: Short CBC 01/24/18 Range/Units 07:32 WBC 8.1 (4.3-11.1) K/mcL Hgb 14.2 (12.9-16.9) g/dL Hct 44.3 (37.5-50.1) % Plt Count 111 L (140-400) K/mcL Neutrophils # 6.1 (1.6-8.9) K/mcL BMP 01/24/18 07:32 Sodium 140 Potassium 3.4 L Chloride 106 Carbon Dioxide 25 BUN 15 Creatinine 0.57 L Glucose 108 H Calcium 9.1 - ABG Interpretation ABG results: PT/INR, D-dimer PT 10.6 Seconds (9.4-12.1) 01/21/18 11:37 - Attending Attestation I examined this patient and my medical decision-making was reviewed with the Resident Physician Dr. Rodríguez. I agree with the documented findings, disposition and treatment plan as described except to the extent set forth below. Mr. Martínez is a 57 year old male with a known past medical history of COPD, not on home oxygen dependent, hypertension, chronic tobacco dependence, substance abuse, chronic alcoholic dependence holdings almost to 24 to 30 beers everyday, who had his last alcohol this morning before he came to the ER presented to the ER today complaining about he wants to quit drinking alcohol. Also he has been having worsening shortness of breath from last 2 to 3 days which have not improved even after using more frequent nebulizers at home. He was admitted in the hospital and started him on IV steroids and frequent neb treatments. For his alcohol intoxication and a possible DTs patient was placed on cafeteria monitor and started him on Ativan as needed. Pt went into active DT's 01/22/18, so he was transferred to step down unit and started him on Precedex gtt. Today he feels better, his tremors are also better. Will try to wean him off the Precedex gtt. Cont Librium as SRINI. Cont close monitoring.switched to PO steroids since his wheezing better today. <Kaitlyn Rodríguez - Last Filed: 01/24/18 13:45> (3) Alcoholic intoxication Qualifiers: Complication of substance-induced condition: with unspecified complication Qualified Code(s): F10.929 - Alcohol use, unspecified with intoxication, unspecified (6) Alcohol dependence Qualifiers: Substance use status: in withdrawal Complication of substance-induced condition: uncomplicated Qualified Code(s): F10.230 - Alcohol dependence with withdrawal, uncomplicated <Mirta Foley - Last Filed: 01/24/18 14:03> (1) Alcohol dependence Qualifiers: Substance use status: in withdrawal Complication of substance-induced condition: uncomplicated Qualified Code(s): F10.230 - Alcohol dependence with withdrawal, uncomplicated (2) Alcoholic intoxication Qualifiers: Complication of substance-induced condition: with unspecified complication Qualified Code(s): F10.929 - Alcohol use, unspecified with intoxication, unspecified
[2018-01-24 07:54] LABS: Basophils % 0.1 %; Hematocrit 44.3 % (37.5-50.1); Hemoglobin 14.2 g/dL (12.9-16.9); Immature Granulocytes % 0.4 % (0-4); Lymphocytes # 1.4 K/mcL (0.6-4.6); Lymphocytes % 17.5 %; Mean Corpuscular HGB Conc 32.1 g/dL (31.6-35.5); Mean Corpuscular Hemoglobin 31.8 pg (28.0-33.3); Mean Corpuscular Volume 99.1 fL (83.0-100.0); Mean Platelet Volume 10.2 fL (9.4-12.4); Monocytes # 0.6 K/mcL (0.0-1.3); Monocytes % 6.8 %; Neutrophils # 6.1 K/mcL (1.6-8.9); Platelet Count 111 K/mcL (140-400); Red Blood Count 4.47 M/mcL (4.19-5.50); Segmented Neutrophils % 75.2 %
[2018-01-24 08:14] LABS: BUN/Creatinine Ratio 26 (6-26); Blood Urea Nitrogen 15 mg/dL (6-20); Calcium 9.1 mg/dL (8.6-10.3); Carbon Dioxide 25 mEq/L (23-29); Chloride 106 mEq/L (98-107); Glucose 108 mg/dL (70-105); Osmolality,Calculated 291 (280-300); Potassium 3.4 mEq/L (3.5-5.1); Sodium 140 mEq/L (136-145); eGFR For Non-African Americans > 60 (> 60)
[2018-01-24] MEDS: *HR* HYDROcodone/Acet 5/325 mg TABLET PO PRN ×2 (08:32→17:03)
[2018-01-24] MEDS ORDERED: predniSONE 20 MG TABLET PO SCH (09:00)
[2018-01-24] MEDS ORDERED: 0.9 % Sodium Chloride 500 ML IVC ONE (09:49)
[2018-01-24] MEDS: *HR* LORazepam 2 MG/ML VIAL IVP PRN ×3 (11:28→22:10)
[2018-01-24] MEDS ORDERED: *HR* LORazepam 2 MG/ML VIAL IVP PRN (14:07)
[2018-01-25] MEDS: Levalbuterol Neb 1.25 MG/3 ML IH SCH ×4 (04:37→21:12)
[2018-01-25] MEDS: Dexmedetomidine HCl 400 MCG/100 ML MLS IVC SCH ×2 (05:16→16:06)
[2018-01-25] MEDS: *HR* Enoxaparin 40 MG/0.4 ML SYRINGE SQ SCH (05:17)
[2018-01-25 08:10] LABS: Eosinophils % 0.3 %; Hemoglobin 13.8 g/dL (12.9-16.9); Immature Granulocytes % 0.4 % (0-4); Lymphocytes # 1.8 K/mcL (0.6-4.6); Lymphocytes % 20.1 %; Mean Corpuscular HGB Conc 32.1 g/dL (31.6-35.5); Mean Corpuscular Hemoglobin 31.8 pg (28.0-33.3); Mean Corpuscular Volume 99.1 fL (83.0-100.0); Mean Platelet Volume 10.4 fL (9.4-12.4); Monocytes # 0.7 K/mcL (0.0-1.3); Monocytes % 7.5 %; Neutrophils # 6.4 K/mcL (1.6-8.9); Platelet Count 113 K/mcL (140-400); Red Blood Count 4.34 M/mcL (4.19-5.50); Segmented Neutrophils % 71.7 %
[2018-01-25 08:31] LABS: BUN/Creatinine Ratio 23 (6-26); Blood Urea Nitrogen 14 mg/dL (6-20); Carbon Dioxide 26 mEq/L (23-29); Chloride 105 mEq/L (98-107); Glucose 108 mg/dL (70-105); Osmolality,Calculated 285 (280-300); Potassium 3.3 mEq/L (3.5-5.1); Sodium 137 mEq/L (136-145); eGFR For Non-African Americans > 60 (> 60)
--- NOTE | 2018-01-25 09:16 | Internal Med Progress Note ---
<Kaitlyn Rodríguez - Last Filed: 01/25/18 10:31> Hospitalist Progress Note - Encounter Date of Encounter: 01/25/18 Time of Encounter: 08:20 - Subjective Interval History: Patient seen and examined. No acute events overnight. He is sleeping comfortably in bed. Patient is alert and oriented x3. He states he feels drowsy. Reports sore throat and pain with swallowing. Denies cough. Denies shortness of breath. Denies shaking and seizures. Denies diaphoresis. Denies fever, chills. Denies chest pain. Denies abdominal pain, nausea/vomiting, diarrhea/constipation. Denies swelling. - Exam Vitals: Temp Pulse Resp BP Pulse Ox 97.8 F 93 22 134/83 95 01/25/18 07:19 01/25/18 07:19 01/25/18 07:19 01/25/18 07:19 01/25/18 07:19 Exam: General: Normal body habitus. Drowsy. Alert and oriented x3. No acute distress. No tremors. Head: atraumatic, normocephalic. Eye: pupils equal and round. Sclera anicteric. EOMI. Mouth: oral mucosa dry. White film on tongue. Thick yellow phlegm at hard palate extending to pharynx. Cannot visualize pharynx. Neck: supple. Trachea midline. Lungs: CTAB. No rhonchi, rales or wheezes. No respiratory distress. Oxygen saturation 96% on room air. Cardiovascular: Normal S1 & S2. No rubs or gallops. No JVD. Pulse regular. Abdomen: Soft. Normal bowel sounds. Nondistended, no rigidity. Nontender. Extremities: No deformity, edema or tenderness, no joint swelling or clubbing. Skin: warm, dry, and intact. - Assessment and Plan (1) Acute respiratory distress Current Visit: Yes Status: Acute Assessment and Plan: Upon arrival pt required 6L O2 despite not using oxygen at home Plan: Pt is currently at 2L O2 via nasal cannula with the ultimate goal of weaning pt off O2 entirely (2) COPD exacerbation Current Visit: Yes Status: Acute Assessment and Plan: CXR found COPD with no acute pneumonia Patient completed 4 days of Levaquin as prophylactic antibiotic therapy on 01/24. Plan: SRINI Duoneb Q4H Weaned from Prednisone 40 to 30. Taper to 20 on 01/29. (3) Alcoholic intoxication Current Visit: Yes Status: Acute Assessment and Plan: Pt consumes 24-30 beers per day and arrived to ED with alcohol level of 228 (H) Pt has been counseled regarding cessation and expresses wishes to do so Today, CIWA Score 7. Plan: Cardiac monitoring Discontinue Precedex drip. Librium 50mg q6h (started 01/22). Ativan prn. 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 Most likely due to COPD exacerbation/respiratory distress Plan: Norvasc 5 mg PO daily Hydralazine IV PRN (5) Hyponatremia Current Visit: Yes Status: Acute Assessment and Plan: Pt presented with mild hyponatremia 129 (L) Pt was hydrated with IV saline Resolved (01/23) (6) Alcohol dependence Current Visit: No Status: Acute (7) Tobacco dependence Current Visit: Yes Status: Acute Assessment and Plan: Counseled to quit smoking placed on nicotine patch (8) Substance abuse Current Visit: Yes Status: Acute Assessment and Plan: Pt presented with UDS positive for marijuana Counseled for cessation DVT Prophylaxis: Lovenox - Time Spent with Patient Total time spent is greater than 50% in coordination of care (as documented) at patient's floor/unit and/or counseling patient: Internal Medicine: Result - Labs CBC & Chem 7: 01/25/18 07:43 01/25/18 07:43 Labs: Short CBC 01/25/18 Range/Units 07:43 WBC 9.0 (4.3-11.1) K/mcL Hgb 13.8 (12.9-16.9) g/dL Hct 43.0 (37.5-50.1) % Plt Count 113 L (140-400) K/mcL Neutrophils # 6.4 (1.6-8.9) K/mcL BMP 01/25/18 07:43 Sodium 137 Potassium 3.3 L Chloride 105 Carbon Dioxide 26 BUN 14 Creatinine 0.60 L Glucose 108 H Calcium 9.0 - ABG Interpretation ABG results: PT/INR, D-dimer PT 10.6 Seconds (9.4-12.1) 01/21/18 11:37 Consult Discharge Plan - Plan Referrals: Mikala Sandra [Advanced Practice Nurse] - 02/01/18 10:20 am () <OgMirta - Last Filed: 01/25/18 14:23> Hospitalist Progress Note - Encounter Date of Encounter: 01/25/18 - Exam Vitals: Temp Pulse Resp BP Pulse Ox 98.2 F 120 20 138/93 98 01/25/18 11:01 01/25/18 12:00 01/25/18 11:01 01/25/18 11:01 01/25/18 11:01 - Assessment and Plan (1) Alcohol dependence Current Visit: No Status: Acute (2) Alcoholic intoxication Current Visit: Yes Status: Acute (3) COPD exacerbation Current Visit: Yes Status: Acute (4) Hyponatremia Current Visit: Yes Status: Acute (5) Acute respiratory distress Current Visit: Yes Status: Acute (6) Hypertensive urgency Current Visit: Yes Status: Acute (7) Tobacco dependence Current Visit: Yes Status: Acute (8) Substance abuse Current Visit: Yes Status: Acute - Time Spent with Patient Total time spent is greater than 50% in coordination of care (as documented) at patient's floor/unit and/or counseling patient: Internal Medicine: Result - Labs CBC & Chem 7: 01/25/18 07:43 01/25/18 07:43 Labs: Short CBC 01/25/18 Range/Units 07:43 WBC 9.0 (4.3-11.1) K/mcL Hgb 13.8 (12.9-16.9) g/dL Hct 43.0 (37.5-50.1) % Plt Count 113 L (140-400) K/mcL Neutrophils # 6.4 (1.6-8.9) K/mcL BMP 01/25/18 07:43 Sodium 137 Potassium 3.3 L Chloride 105 Carbon Dioxide 26 BUN 14 Creatinine 0.60 L Glucose 108 H Calcium 9.0 - ABG Interpretation ABG results: PT/INR, D-dimer PT 10.6 Seconds (9.4-12.1) 01/21/18 11:37 - Attending Attestation I examined this patient and my medical decision-making was reviewed with the Resident Physician Dr. Rodríguez. I agree with the documented findings, disposition and treatment plan as described except to the extent set forth below. Mr. Martínez is a 57 year old male with a known past medical history of COPD, not on home oxygen dependent, hypertension, chronic tobacco dependence, substance abuse, chronic alcoholic dependence holdings almost to 24 to 30 beers everyday, who had his last alcohol this morning before he came to the ER presented to the ER today complaining about he wants to quit drinking alcohol. Also he has been having worsening shortness of breath from last 2 to 3 days which have not improved even after using more frequent nebulizers at home. He was admitted in the hospital and started him on IV steroids and frequent neb treatments. For his alcohol intoxication and a possible DTs patient was placed on bus monitor and started him on Ativan as needed. Pt went into active DT's 01/22/18, so he was transferred to step down unit and started him on Precedex gtt. Today he feels better, his tremors are also better. Will try to wean him off the Precedex gtt. Cont Librium as SRINI. Cont close monitoring. Start tapering PO steroids since his wheezing better today. <Kaitlyn Rodríguez - Last Filed: 01/25/18 10:31> (3) Alcoholic intoxication Qualifiers: Complication of substance-induced condition: with unspecified complication Qualified Code(s): F10.929 - Alcohol use, unspecified with intoxication, unspecified (6) Alcohol dependence Qualifiers: Substance use status: in withdrawal Complication of substance-induced condition: uncomplicated Qualified Code(s): F10.230 - Alcohol dependence with withdrawal, uncomplicated <Mirta Foley - Last Filed: 01/25/18 14:23> (1) Alcohol dependence Qualifiers: Substance use status: in withdrawal Complication of substance-induced condition: uncomplicated Qualified Code(s): F10.230 - Alcohol dependence with withdrawal, uncomplicated (2) Alcoholic intoxication Qualifiers: Complication of substance-induced condition: with unspecified complication Qualified Code(s): F10.929 - Alcohol use, unspecified with intoxication, unspecified
[2018-01-25] MEDS: Vitamin B Complex/Vit C/Vit E 1 EACH TABLET PO SCH (09:37)
[2018-01-25] MEDS: amLODIPine 5 MG TABLET PO SCH (09:37)
[2018-01-25] MEDS: Thiamine (B-1) 100 MG TABLET PO SCH (09:37)
[2018-01-25] MEDS: Folic Acid 1 MG TABLET PO SCH (09:38)
[2018-01-25] MEDS: Nystatin SUSP 5 ML UD.LIQ PO SCH ×4 (09:51→20:07)
[2018-01-25] MEDS: *HR* HYDROcodone/Acet 5/325 mg TABLET PO PRN ×2 (10:20→20:51)
[2018-01-25] MEDS: *HR* LORazepam 2 MG/ML VIAL IVP PRN (12:28)
[2018-01-25] MEDS ORDERED: 0.9 % Sodium Chloride 500 ML IVC ONE (17:58)
[2018-01-25] MEDS: 0.9 % Sodium Chloride 1,000 ML IVC SCH (19:16)
[2018-01-26] MEDS: 0.9 % Sodium Chloride 1,000 ML IVC SCH
[2018-01-26] MEDS: Levalbuterol Neb 1.25 MG/3 ML IH SCH ×4 (04:10→21:44)
[2018-01-26 04:23] LABS: Basophils % 0.2 %; Eosinophils # 0.1 K/mcL (0.0-0.6); Eosinophils % 1.6 %; Hematocrit 37.8 % (37.5-50.1); Immature Granulocytes % 0.2 % (0-4); Lymphocytes # 1.7 K/mcL (0.6-4.6); Lymphocytes % 19.8 %; Mean Corpuscular HGB Conc 31.7 g/dL (31.6-35.5); Mean Corpuscular Hemoglobin 31.8 pg (28.0-33.3); Mean Corpuscular Volume 100.3 fL (83.0-100.0); Mean Platelet Volume 10.2 fL (9.4-12.4); Monocytes # 0.9 K/mcL (0.0-1.3); Monocytes % 10.2 %; Neutrophils # 5.8 K/mcL (1.6-8.9); Platelet Count 105 K/mcL (140-400); Red Blood Count 3.77 M/mcL (4.19-5.50); Red Cell Distribution Width 14.3 % (11.5-14.5)
[2018-01-26] MEDS: Dexmedetomidine HCl 400 MCG/100 ML MLS IVC SCH ×2 (04:35→22:26)
[2018-01-26] MEDS: *HR* Enoxaparin 40 MG/0.4 ML SYRINGE SQ SCH (05:51)
[2018-01-26 06:15] LABS: BUN/Creatinine Ratio 24 (6-26); Blood Urea Nitrogen 15 mg/dL (6-20); Calcium 8.1 mg/dL (8.6-10.3); Carbon Dioxide 26 mEq/L (23-29); Chloride 109 mEq/L (98-107); Glucose 82 mg/dL (70-105); Osmolality,Calculated 292 (280-300); Potassium 3.2 mEq/L (3.5-5.1); Sodium 141 mEq/L (136-145); eGFR For Non-African Americans > 60 (> 60)
[2018-01-26] MEDS: amLODIPine 5 MG TABLET PO SCH (08:16)
[2018-01-26] MEDS: Thiamine (B-1) 100 MG TABLET PO SCH (08:17)
[2018-01-26] MEDS: predniSONE 10 MG TABLET PO SCH (08:17)
[2018-01-26] MEDS: Vitamin B Complex/Vit C/Vit E 1 EACH TABLET PO SCH (08:18)
[2018-01-26] MEDS: Folic Acid 1 MG TABLET PO SCH (08:18)
[2018-01-26] MEDS: Nystatin SUSP 5 ML UD.LIQ PO SCH ×4 (08:18→21:38)
--- NOTE | 2018-01-26 08:52 | Internal Med Progress Note ---
Hospitalist Progress Note - Encounter Date of Encounter: 01/26/18 Time of Encounter: 08:50 - Subjective Interval History: Mr. Martínez is a 57 year old male with a known past medical history of COPD, not on home oxygen dependent, hypertension, chronic tobacco dependence, substance abuse, chronic alcoholic dependence holdings almost to 24 to 30 beers everyday, who had his last alcohol this morning before he came to the ER presented to the ER today complaining about he wants to quit drinking alcohol. Also he has been having worsening shortness of breath from last 2 to 3 days which have not improved even after using more frequent nebulizers at home. He was admitted in the hospital and started him on IV steroids and frequent neb treatments. For his alcohol intoxication and a possible DTs patient was placed on secured entrance monitor and started him on Ativan as needed. Pt went into active DT's 01/22/18, so he was transferred to step down unit and started him on Precedex gtt. Today he feels better, his tremors are also better. Tolerating PO intake well. He is more alert, awake and O x 3 - Exam Vitals: Temp Pulse Resp BP Pulse Ox 98.0 F 96 22 131/92 97 01/26/18 07:09 01/26/18 08:00 01/26/18 08:00 01/26/18 08:00 01/26/18 07:09 Exam: Gen: Alert, awake, Oriented to time,place and person, tremors + Chest: Diminished breath sounds B/L, mild wheezing, No crackles, No rales Heart: S1S2+ RRR No murmurs Abd: Soft, NT, BS +, No organomegaly Ext: No edema, pulses are palpable, No calf tenderness Neuro : tremors + Skin: No rash. - Assessment and Plan (1) Delirium tremens Current Visit: Yes Status: Acute Assessment and Plan: Still in active DT's Cont Libirium as scheduled Will try to wean him off the Precedex gtt cont on tele cont CIWA (2) Alcoholic intoxication Current Visit: Yes Status: Acute Assessment and Plan: Pt consumes 24-30 beers per day and arrived to ED with alcohol level of 228 (H) Pt has been counseled regarding cessation and expresses wishes to do so Try wean him off Precedex drip. Librium 50mg q6h (started 01/22). Ativan prn. Cont PO Thiamine, multivitamin, Folate PO [employer] consulted regarding possible alcohol rehabilitation programs following d/c (3) Alcohol dependence Current Visit: No Status: Acute (4) COPD exacerbation Current Visit: Yes Status: Acute Assessment and Plan: Improving still on 2 lit cont Duoneb and O2 cont tapering steroids (5) Hyponatremia Current Visit: Yes Status: Acute Assessment and Plan: resolved (6) Acute respiratory distress Current Visit: Yes Status: Acute Assessment and Plan: Improving (7) Hypertensive urgency Current Visit: Yes Status: Acute Assessment and Plan: Stable cont Norvasc 5 mg PO daily Hydralazine IV PRN (8) Tobacco dependence Current Visit: Yes Status: Acute Assessment and Plan: Counseled to quit smoking placed on nicotine patch (9) Substance abuse Current Visit: Yes Status: Acute Assessment and Plan: Pt presented with UDS positive for marijuana Counseled for cessation - Time Spent with Patient Total time spent is greater than 50% in coordination of care (as documented) at patient's floor/unit and/or counseling patient: Internal Medicine: Result - Labs CBC & Chem 7: 01/26/18 03:58 01/26/18 05:25 Labs: Short CBC 01/26/18 Range/Units 03:58 WBC 8.5 (4.3-11.1) K/mcL Hgb 12.0 L D (12.9-16.9) g/dL Hct 37.8 (37.5-50.1) % Plt Count 105 L (140-400) K/mcL Neutrophils # 5.8 (1.6-8.9) K/mcL BMP 01/26/18 05:25 Sodium 141 Potassium 3.2 L Chloride 109 H Carbon Dioxide 26 BUN 15 Creatinine 0.63 L Glucose 82 Calcium 8.1 L - ABG Interpretation ABG results: PT/INR, D-dimer PT 10.6 Seconds (9.4-12.1) 01/21/18 11:37 Consult Discharge Plan - Plan Referrals: Mikala Sandra [Advanced Practice Nurse] - 02/01/18 10:20 am () (2) Alcoholic intoxication Qualifiers: Complication of substance-induced condition: with unspecified complication Qualified Code(s): F10.929 - Alcohol use, unspecified with intoxication, unspecified (3) Alcohol dependence Qualifiers: Substance use status: in withdrawal Complication of substance-induced condition: uncomplicated Qualified Code(s): F10.230 - Alcohol dependence with withdrawal, uncomplicated
[2018-01-26] MEDS: *HR* HYDROcodone/Acet 5/325 mg TABLET PO PRN ×2 (11:27→19:17)
[2018-01-27] MEDS: Levalbuterol Neb 1.25 MG/3 ML IH SCH ×6 (04:09→22:57)
[2018-01-27] MEDS: *HR* Enoxaparin 40 MG/0.4 ML SYRINGE SQ SCH (06:09)
[2018-01-27 07:07] LABS: Basophils % 0.1 %; Eosinophils # 0.1 K/mcL (0.0-0.6); Eosinophils % 1.3 %; Hematocrit 39.5 % (37.5-50.1); Hemoglobin 12.7 g/dL (12.9-16.9); Immature Granulocytes % 0.4 % (0-4); Lymphocytes # 1.4 K/mcL (0.6-4.6); Lymphocytes % 19.6 %; Mean Corpuscular HGB Conc 32.2 g/dL (31.6-35.5); Mean Corpuscular Hemoglobin 31.6 pg (28.0-33.3); Mean Corpuscular Volume 98.3 fL (83.0-100.0); Mean Platelet Volume 10.2 fL (9.4-12.4); Monocytes # 0.5 K/mcL (0.0-1.3); Monocytes % 7.5 %; Neutrophils # 4.9 K/mcL (1.6-8.9); Platelet Count 118 K/mcL (140-400); Red Blood Count 4.02 M/mcL (4.19-5.50); Red Cell Distribution Width 13.9 % (11.5-14.5); Segmented Neutrophils % 71.1 %
[2018-01-27 07:26] LABS: BUN/Creatinine Ratio 18 (6-26); Blood Urea Nitrogen 9 mg/dL (6-20); Calcium 8.8 mg/dL (8.6-10.3); Carbon Dioxide 27 mEq/L (23-29); Chloride 107 mEq/L (98-107); Glucose 96 mg/dL (70-105); Osmolality,Calculated 289 (280-300); Potassium 3.4 mEq/L (3.5-5.1); Sodium 140 mEq/L (136-145); eGFR For Non-African Americans > 60 (> 60)
[2018-01-27 07:28] LABS: Alanine Aminotransferase 45 Units/L (7-52); Albumin 3.3 g/dL (3.5-5.7); Albumin/Globulin Ratio 1.3 (1.1-2.2); Alkaline Phosphatase 45 Units/L (34-104); Aspartate Amino Transferase 23 Units/L (13-39); BUN/Creatinine Ratio 19 (6-26); Bilirubin,Total 0.3 mg/dL (0.3-1.0); Blood Urea Nitrogen 9 mg/dL (6-20); Calcium 8.8 mg/dL (8.6-10.3); Carbon Dioxide 26 mEq/L (23-29); Chloride 107 mEq/L (98-107); Globulin 2.5 g/dL (2.4-3.5); Glucose 95 mg/dL (70-105); Magnesium 1.9 mg/dL (1.6-2.6); Osmolality,Calculated 288 (280-300); Potassium 3.4 mEq/L (3.5-5.1); Sodium 140 mEq/L (136-145); Total Protein 5.8 g/dL (6.4-8.9); eGFR For Non-African Americans > 60 (> 60)
[2018-01-27] MEDS: amLODIPine 5 MG TABLET PO SCH (08:07)
[2018-01-27] MEDS: Thiamine (B-1) 100 MG TABLET PO SCH (08:07)
[2018-01-27] MEDS: *HR* HYDROcodone/Acet 5/325 mg TABLET PO PRN ×2 (08:07→13:46)
[2018-01-27] MEDS: Folic Acid 1 MG TABLET PO SCH (08:07)
[2018-01-27] MEDS: Nystatin SUSP 5 ML UD.LIQ PO SCH ×4 (08:07→20:40)
[2018-01-27] MEDS: predniSONE 10 MG TABLET PO SCH (08:07)
[2018-01-27] MEDS: Vitamin B Complex/Vit C/Vit E 1 EACH TABLET PO SCH (08:08)
[2018-01-27] MEDS: *HR* LORazepam 2 MG/ML VIAL IVP PRN ×3 (09:58→17:55)
[2018-01-27] MEDS: traMADol 50 MG TABLET PO PRN (10:01)
[2018-01-27] MEDS ORDERED: 0.9 % Sodium Chloride 250 ML ONE (13:26)
--- NOTE | 2018-01-27 13:45 | Internal Med Progress Note ---
Hospitalist Progress Note - Encounter Date of Encounter: 01/27/18 Time of Encounter: 13:43 - Subjective Interval History: Mr. Martínez is a 57 year old male with a known past medical history of COPD, not on home oxygen dependent, hypertension, chronic tobacco dependence, substance abuse, chronic alcoholic dependence holdings almost to 24 to 30 beers everyday, who had his last alcohol this morning before he came to the ER presented to the ER today complaining about he wants to quit drinking alcohol. Also he has been having worsening shortness of breath from last 2 to 3 days which have not improved even after using more frequent nebulizers at home. He was admitted in the hospital and started him on IV steroids and frequent neb treatments. For his alcohol intoxication and a possible DTs patient was placed on manager monitoring and started him on Ativan as needed. Pt went into active DT's 01/22/18, so he was transferred to step down unit and started him on Precedex gtt. Today he feels better, his tremors are also better. Tolerating PO intake well. He is more alert, awake and O x 3 - Exam Vitals: Temp Pulse Resp BP Pulse Ox 98.1 F 112 20 112/85 97 01/27/18 11:25 01/27/18 11:25 01/27/18 11:25 01/27/18 11:25 01/27/18 11:25 Exam: Gen: Alert, awake, Oriented to time,place and person, tremors + Chest: Diminished breath sounds B/L, mild wheezing, No crackles, No rales Heart: S1S2+ RRR No murmurs Abd: Soft, NT, BS +, No organomegaly Ext: No edema, pulses are palpable, No calf tenderness Neuro : tremors + Skin: No rash. - Assessment and Plan (1) Delirium tremens Current Visit: Yes Status: Acute Assessment and Plan: Still in active DT's Cont Libirium as scheduled Will try to wean him off the Precedex gtt as he tolerates cont on tele cont CIWA (2) Alcoholic intoxication Current Visit: Yes Status: Acute Assessment and Plan: Pt consumes 24-30 beers per day and arrived to ED with alcohol level of 228 (H) Pt has been counseled regarding cessation and expresses wishes to do so Try to wean him off Precedex drip. Librium 50mg q6h (started 01/22). Ativan prn. Cont PO Thiamine, multivitamin, Folate PO Patient Care Associate consulted regarding possible alcohol rehabilitation programs following d/c (3) Alcohol dependence Current Visit: No Status: Acute (4) COPD exacerbation Current Visit: Yes Status: Acute Assessment and Plan: Improving still on 2 lit cont Duoneb and O2 cont tapering steroids (5) Hyponatremia Current Visit: Yes Status: Acute Assessment and Plan: resolved (6) Acute respiratory distress Current Visit: Yes Status: Acute Assessment and Plan: Improving (7) Hypertensive urgency Current Visit: Yes Status: Acute Assessment and Plan: Stable cont Norvasc 5 mg PO daily Hydralazine IV PRN (8) Tobacco dependence Current Visit: Yes Status: Acute Assessment and Plan: Counseled to quit smoking placed on nicotine patch (9) Substance abuse Current Visit: Yes Status: Acute Assessment and Plan: Pt presented with UDS positive for marijuana Counseled for cessation - Time Spent with Patient Total time spent is greater than 50% in coordination of care (as documented) at patient's floor/unit and/or counseling patient: Internal Medicine: Result - Labs CBC & Chem 7: 01/27/18 06:54 01/27/18 06:54 Labs: Short CBC 01/27/18 Range/Units 06:54 WBC 6.9 (4.3-11.1) K/mcL Hgb 12.7 L (12.9-16.9) g/dL Hct 39.5 (37.5-50.1) % Plt Count 118 L (140-400) K/mcL Neutrophils # 4.9 (1.6-8.9) K/mcL BMP 01/27/18 01/27/18 06:54 06:54 Sodium 140 140 Potassium 3.4 L 3.4 L Chloride 107 107 Carbon Dioxide 27 26 BUN 9 9 Creatinine 0.49 L 0.48 L Glucose 96 95 Calcium 8.8 8.8 Liver Function 01/27/18 Range/Units 06:54 Total Bilirubin 0.3 (0.3-1.0) mg/dL AST 23 (13-39) Units/L ALT 45 (7-52) Units/L Alkaline Phosphatase 45 (34-104) Units/L Albumin 3.3 L (3.5-5.7) g/dL - ABG Interpretation ABG results: PT/INR, D-dimer PT 10.6 Seconds (9.4-12.1) 01/21/18 11:37 Consult Discharge Plan - Plan Referrals: Mikala Sandra [Advanced Practice Nurse] - 02/01/18 10:20 am () (2) Alcoholic intoxication Qualifiers: Complication of substance-induced condition: with unspecified complication Qualified Code(s): F10.929 - Alcohol use, unspecified with intoxication, unspecified (3) Alcohol dependence Qualifiers: Substance use status: in withdrawal Complication of substance-induced condition: uncomplicated Qualified Code(s): F10.230 - Alcohol dependence with withdrawal, uncomplicated
[2018-01-28] MEDS ORDERED: 0.9 % Sodium Chloride 500 ML ONE (02:42)
[2018-01-28] MEDS: Dexmedetomidine HCl 400 MCG/100 ML MLS IVC SCH ×2 (02:45→19:31)
[2018-01-28] MEDS: Levalbuterol Neb 1.25 MG/3 ML IH SCH ×4 (03:23→21:53)
[2018-01-28 04:19] LABS: Basophils % 0.2 %; Eosinophils % 0.4 %; Hematocrit 37.7 % (37.5-50.1); Hemoglobin 12.2 g/dL (12.9-16.9); Immature Granulocytes % 0.2 % (0-4); Lymphocytes # 1.2 K/mcL (0.6-4.6); Lymphocytes % 25.3 %; Mean Corpuscular HGB Conc 32.4 g/dL (31.6-35.5); Mean Corpuscular Hemoglobin 31.6 pg (28.0-33.3); Mean Corpuscular Volume 97.7 fL (83.0-100.0); Monocytes # 0.4 K/mcL (0.0-1.3); Monocytes % 7.8 %; Neutrophils # 3.2 K/mcL (1.6-8.9); Platelet Count 128 K/mcL (140-400); Red Blood Count 3.86 M/mcL (4.19-5.50); Red Cell Distribution Width 14.2 % (11.5-14.5); Segmented Neutrophils % 66.1 %
[2018-01-28 04:42] LABS: BUN/Creatinine Ratio 15 (6-26); Blood Urea Nitrogen 7 mg/dL (6-20); Calcium 8.9 mg/dL (8.6-10.3); Carbon Dioxide 29 mEq/L (23-29); Chloride 105 mEq/L (98-107); Glucose 122 mg/dL (70-105); Osmolality,Calculated 289 (280-300); Potassium 3.5 mEq/L (3.5-5.1); Sodium 140 mEq/L (136-145); eGFR For Non-African Americans > 60 (> 60)
[2018-01-28] MEDS: *HR* Enoxaparin 40 MG/0.4 ML SYRINGE SQ SCH (05:32)
[2018-01-28] MEDS: Folic Acid 1 MG TABLET PO SCH (09:17)
[2018-01-28] MEDS: amLODIPine 5 MG TABLET PO SCH (09:17)
[2018-01-28] MEDS: Vitamin B Complex/Vit C/Vit E 1 EACH TABLET PO SCH (09:17)
[2018-01-28] MEDS: Thiamine (B-1) 100 MG TABLET PO SCH (09:18)
[2018-01-28] MEDS: Nystatin SUSP 5 ML UD.LIQ PO SCH ×4 (09:18→20:28)
[2018-01-28] MEDS: predniSONE 10 MG TABLET PO SCH ×2 (09:18→20:28)
[2018-01-28] MEDS: traMADol 50 MG TABLET PO PRN ×2 (09:22→16:54)
--- NOTE | 2018-01-28 10:54 | Internal Med Progress Note ---
<Papa Wick - Last Filed: 01/28/18 12:58> Hospitalist Progress Note - Encounter Date of Encounter: 01/28/18 Time of Encounter: 10:00 - Subjective Interval History: Pleasant 57 y/o M pt was seen and evaluated at bedside. Pt is A&Ox3 and is still quite short of breath and wheezing has worsened so a breathing treatment was given. No acute changes overnight. Pt has no complaints of N/V, abdominal pain, cough, CP, tremors, or sleep disturbances. Pt has started ambulating assisted by a walker around his room. Pt reports improved appetite and improved swallowing of food. Pt not tolerating Precedex wean, therefore Librium dosage increased to 100 mg Corticosteroids increased to 40 mg PO prednisone bid. Pt currently on room air satting 93%. Nasal cannula last utilized last night (2L ) Pt on Nystatin day 4 due to oral thrush noted. Plan to continue for 7 days () - Exam Vitals: Temp Pulse Resp BP Pulse Ox 97.5 F L 75 20 150/89 94 01/28/18 07:19 01/28/18 07:19 01/28/18 10:25 01/28/18 07:19 01/28/18 10:25 Exam: General: Pt is fatigued Head: Normocephalic and atraumatic CV: RRR. No murmurs rubs or gallops Lungs: Diffuse wheezing throughout Skin: Dry and Intact. No lesions or bruising noted. - Assessment and Plan (1) Delirium tremens Current Visit: Yes Status: Acute Assessment and Plan: Still active, managed with Librium, Ativan, and Precedex Monitored on telemetry Currently tapering Precedex (2) Acute respiratory distress Current Visit: Yes Status: Acute Assessment and Plan: Upon arrival pt required 6L O2 despite not using oxygen at home Pt is being weaned off of nasal cannula, most recently on cannula last night () Pt currently satting 93% on room air (3) COPD exacerbation Current Visit: Yes Status: Acute Assessment and Plan: CXR found COPD with no acute pneumonia Pt completed a 3 day prophylactic abx course of Levaquin Plan: Managed with po steroids and SRINI Duoneb Q4H Steroid dose increased due to worsened wheezing and pt is currently 40 mg Prednisone po bid (4) Alcoholic intoxication Current Visit: Yes Status: Acute Assessment and Plan: Pt consumes 24-30 beers per day and arrived to ED with alcohol level of 228 (H) Pt has been counseled regarding cessation and expresses wishes to do so CIWA Score 10 Upon Admission Plan: Cardiac monitoring Librium increased to 100 mg Q6H (Started 01/22). Will taper down Librium following Precedex discontinuation Ativan prn Precedex drip (01/22). D/C (01/25) and restarted (01/25). D/C and restarted (01/26) as well Banana Bag QD to supplement pt with: Thiamine, multivitamin, Folate PO Robotic Weld Technician consulted regarding possible alcohol rehabilitation programs following d/c (5) Hypertensive urgency Current Visit: Yes Status: Acute Assessment and Plan: Pt presented with bp 214/117 Today BP 150/89 Most likely due to COPD exacerbation/respiratory distress Plan: Norvasc 5 mg PO daily Hydralazine 10 mg IV Q6H prn (6) Tobacco dependence Current Visit: Yes Status: Acute Assessment and Plan: Counseled to quit smoking Placed on nicotine patch (7) Substance abuse Current Visit: Yes Status: Acute Assessment and Plan: Pt presented with UDS positive for marijuana Counseled for cessation - Time Spent with Patient Total time spent is greater than 50% in coordination of care (as documented) at patient's floor/unit and/or counseling patient: Greater than 35 minutes Plan of Care Discussed with: patient Internal Medicine: Result - Labs CBC & Chem 7: 01/28/18 04:00 01/28/18 04:00 Labs: Short CBC 01/28/18 Range/Units 04:00 WBC 4.9 (4.3-11.1) K/mcL Hgb 12.2 L (12.9-16.9) g/dL Hct 37.7 (37.5-50.1) % Plt Count 128 L (140-400) K/mcL Neutrophils # 3.2 (1.6-8.9) K/mcL BMP 01/28/18 04:00 Sodium 140 Potassium 3.5 Chloride 105 Carbon Dioxide 29 BUN 7 Creatinine 0.47 L Glucose 122 H Calcium 8.9 - ABG Interpretation ABG results: PT/INR, D-dimer PT 10.6 Seconds (9.4-12.1) 01/21/18 11:37 Consult Discharge Plan - Plan Referrals: Mikala Sandra [Advanced Practice Nurse] - 02/01/18 10:20 am () <Mirta Foley - Last Filed: 01/28/18 17:40> Hospitalist Progress Note - Encounter Date of Encounter: 01/28/18 - Exam Vitals: Temp Pulse Resp BP Pulse Ox 97.6 F 95 20 106/76 95 01/28/18 16:13 01/28/18 16:13 01/28/18 16:13 01/28/18 16:13 01/28/18 16:13 - Assessment and Plan (1) Delirium tremens Current Visit: Yes Status: Acute (2) Alcoholic intoxication Current Visit: Yes Status: Acute (3) Alcohol dependence Current Visit: No Status: Acute (4) COPD exacerbation Current Visit: Yes Status: Acute (5) Hyponatremia Current Visit: Yes Status: Acute (6) Acute respiratory distress Current Visit: Yes Status: Acute (7) Hypertensive urgency Current Visit: Yes Status: Acute (8) Tobacco dependence Current Visit: Yes Status: Acute (9) Substance abuse Current Visit: Yes Status: Acute - Time Spent with Patient Total time spent is greater than 50% in coordination of care (as documented) at patient's floor/unit and/or counseling patient: Internal Medicine: Result - Labs CBC & Chem 7: 01/28/18 04:00 01/28/18 04:00 Labs: Short CBC 01/28/18 Range/Units 04:00 WBC 4.9 (4.3-11.1) K/mcL Hgb 12.2 L (12.9-16.9) g/dL Hct 37.7 (37.5-50.1) % Plt Count 128 L (140-400) K/mcL Neutrophils # 3.2 (1.6-8.9) K/mcL BMP 01/28/18 04:00 Sodium 140 Potassium 3.5 Chloride 105 Carbon Dioxide 29 BUN 7 Creatinine 0.47 L Glucose 122 H Calcium 8.9 - ABG Interpretation ABG results: PT/INR, D-dimer PT 10.6 Seconds (9.4-12.1) 01/21/18 11:37 - Attending Attestation The history, physical exam, and medical decision making was performed by the medical student Dr. Wick either while I was physically present and actively involved or I personally re-performed the exam and medical decision making. I have verified the accuracy of the medical student's documentation with regards to the history, physical exam findings, and medical decision making. Mr. Martínez is a 57 year old male with a known past medical history of COPD, not on home oxygen dependent, hypertension, chronic tobacco dependence, substance abuse, chronic alcoholic dependence holdings almost to 24 to 30 beers everyday, who had his last alcohol this morning before he came to the ER presented to the ER today complaining about he wants to quit drinking alcohol. Also he has been having worsening shortness of breath from last 2 to 3 days which have not improved even after using more frequent nebulizers at home. He was admitted in the hospital and started him on IV steroids and frequent neb treatments. For his alcohol intoxication and a possible DTs patient was placed on conveyor monitor and started him on Ativan as needed. Pt went into active DT's 01/22/18, so he was transferred to step down unit and started him on Precedex gtt. Today he feels better, his tremors are also better. Will try to wean him off the Precedex gtt. Increased his Librium to 100mg QID since we are not able to wean him off Precedex gtt yet He does have moderate wheezing with moderate resp distress, so inc hsi Prednisone to 40mg BID Cont close monitoring. <Papa Wick - Last Filed: 01/28/18 12:58> (4) Alcoholic intoxication Qualifiers: Complication of substance-induced condition: with unspecified complication Qualified Code(s): F10.929 - Alcohol use, unspecified with intoxication, unspecified <Mirta Foley - Last Filed: 01/28/18 17:40> (2) Alcoholic intoxication Qualifiers: Complication of substance-induced condition: with unspecified complication Qualified Code(s): F10.929 - Alcohol use, unspecified with intoxication, unspecified (3) Alcohol dependence Qualifiers: Substance use status: in withdrawal Complication of substance-induced condition: uncomplicated Qualified Code(s): F10.230 - Alcohol dependence with withdrawal, uncomplicated
[2018-01-28] MEDS: *HR* HYDROcodone/Acet 5/325 mg TABLET PO PRN ×2 (11:46→20:28)
--- NOTE | 2018-01-28 16:10 | Electrocardiograph Report ---
[place] [id number] Test Date: 2018-01-25 Pat Name: Christopher Martínez Department: 110 Room: 2N04 Gender: M Mica Inspector: BHUMIKA : 1960 Requested By: Mirta Foley Order Number: [id number] Reading MD: Pablo Hernandez Measurements Intervals [place] Rate: 94 P: 70 [place]: 122 QRS: 63 QRSD: 89 T: 89 QT: 339 QTc: 391 Interpretive Statements SINUS RHYTHM NONSPECIFIC T-WAVE ABNORMALITY Electronically Signed On 01-28-2018 16:08:59 EDT by Pablo Hernandez
[2018-01-29] MEDS: Levalbuterol Neb 1.25 MG/3 ML IH SCH ×4 (04:20→21:24)
[2018-01-29 04:32] LABS: Basophils % 0.2 %; Hematocrit 43.2 % (37.5-50.1); Hemoglobin 13.7 g/dL (12.9-16.9); Immature Granulocytes % 1.1 % (0-4); Lymphocytes # 0.6 K/mcL (0.6-4.6); Lymphocytes % 14.3 %; Mean Corpuscular HGB Conc 31.7 g/dL (31.6-35.5); Mean Corpuscular Hemoglobin 31.4 pg (28.0-33.3); Mean Corpuscular Volume 98.9 fL (83.0-100.0); Monocytes # 0.1 K/mcL (0.0-1.3); Monocytes % 2.5 %; Neutrophils # 3.7 K/mcL (1.6-8.9); Platelet Count 174 K/mcL (140-400); Red Blood Count 4.37 M/mcL (4.19-5.50); Red Cell Distribution Width 13.8 % (11.5-14.5); Segmented Neutrophils % 81.9 %
[2018-01-29 04:51] LABS: BUN/Creatinine Ratio 15 (6-26); Blood Urea Nitrogen 8 mg/dL (6-20); Calcium 9.4 mg/dL (8.6-10.3); Carbon Dioxide 30 mEq/L (23-29); Chloride 102 mEq/L (98-107); Glucose 181 mg/dL (70-105); Osmolality,Calculated 291 (280-300); Potassium 4.1 mEq/L (3.5-5.1); Sodium 139 mEq/L (136-145); eGFR For Non-African Americans > 60 (> 60)
[2018-01-29] MEDS ORDERED: 0.9 % Sodium Chloride 500 ML ONE (06:20)
[2018-01-29] MEDS: *HR* Enoxaparin 40 MG/0.4 ML SYRINGE SQ SCH (06:28)
[2018-01-29] MEDS: Thiamine (B-1) 100 MG TABLET PO SCH (08:06)
[2018-01-29] MEDS: Vitamin B Complex/Vit C/Vit E 1 EACH TABLET PO SCH (08:06)
[2018-01-29] MEDS: amLODIPine 5 MG TABLET PO SCH (08:06)
[2018-01-29] MEDS: predniSONE 10 MG TABLET PO SCH ×2 (08:06→21:39)
[2018-01-29] MEDS: Nystatin SUSP 5 ML UD.LIQ PO SCH ×4 (08:06→21:39)
[2018-01-29] MEDS: *HR* HYDROcodone/Acet 5/325 mg TABLET PO PRN ×2 (08:06→19:36)
[2018-01-29] MEDS: Folic Acid 1 MG TABLET PO SCH (08:07)
--- NOTE | 2018-01-29 13:39 | Internal Med Progress Note ---
Hospitalist Progress Note - Encounter Date of Encounter: 01/29/18 Time of Encounter: 10:00 - Exam Vitals: Temp Pulse Resp BP Pulse Ox 98.2 F 120 18 142/85 97 01/29/18 10:59 01/29/18 10:59 01/29/18 10:59 01/29/18 10:59 01/29/18 10:59 Exam: General: Pt is fatigued Head: Normocephalic and atraumatic CV: RRR. No murmurs rubs or gallops Lungs: Diffuse wheezing throughout GI: abdomen is soft Neuro. Tremors in extremities Skin: Dry and Intact. No lesions or bruising noted. - Assessment and Plan (1) Delirium tremens Current Visit: Yes Status: Acute Assessment and Plan: Still in active DT's. Pt has active tremors Continue ativan, librium and precedex drip as needed Will wean off as tolerated (2) Alcohol dependence Current Visit: No Status: Acute Assessment and Plan: See #1. Counseled (3) Alcoholic intoxication Current Visit: Yes Status: Acute Assessment and Plan: Pt consumes 24-30 beers per day and arrived to ED with alcohol level of 228 (H) Pt has been counseled regarding cessation and expresses wishes to do so Try to wean him off Precedex drip. Librium 50mg q6h (started 01/22). Ativan prn. Cont PO Thiamine, multivitamin, Folate PO Police Patrol Lieutenant consulted regarding possible alcohol rehabilitation programs following d/c (4) COPD exacerbation Current Visit: Yes Status: Acute Assessment and Plan: Improving still on 2 lit cont Duoneb and O2 cont tapering steroids (5) Hyponatremia Current Visit: Yes Status: Acute Assessment and Plan: resolved (6) Acute respiratory distress Current Visit: Yes Status: Acute Assessment and Plan: Improved (7) Hypertensive urgency Current Visit: Yes Status: Acute Assessment and Plan: Stable cont Norvasc 5 mg PO daily Hydralazine IV PRN (8) Tobacco dependence Current Visit: Yes Status: Acute Assessment and Plan: Counseled to quit smoking placed on nicotine patch (9) Substance abuse Current Visit: Yes Status: Acute Assessment and Plan: Pt presented with UDS positive for marijuana Counseled for cessation DVT Prophylaxis: Lovenox - Time Spent with Patient Total time spent is greater than 50% in coordination of care (as documented) at patient's floor/unit and/or counseling patient: Internal Medicine: Result - Labs CBC & Chem 7: 01/29/18 04:12 01/29/18 04:12 Labs: Short CBC 01/29/18 Range/Units 04:12 WBC 4.5 (4.3-11.1) K/mcL Hgb 13.7 D (12.9-16.9) g/dL Hct 43.2 (37.5-50.1) % Plt Count 174 (140-400) K/mcL Neutrophils # 3.7 (1.6-8.9) K/mcL BMP 01/29/18 04:12 Sodium 139 Potassium 4.1 Chloride 102 Carbon Dioxide 30 H BUN 8 Creatinine 0.55 L Glucose 181 H Calcium 9.4 - ABG Interpretation ABG results: PT/INR, D-dimer PT 10.6 Seconds (9.4-12.1) 01/21/18 11:37 Consult Discharge Plan - Plan Referrals: Mikala Sandra [Advanced Practice Nurse] - 02/01/18 10:20 am () (2) Alcohol dependence Qualifiers: Substance use status: in withdrawal Complication of substance-induced condition: uncomplicated Qualified Code(s): F10.230 - Alcohol dependence with withdrawal, uncomplicated (3) Alcoholic intoxication Qualifiers: Complication of substance-induced condition: with unspecified complication Qualified Code(s): F10.929 - Alcohol use, unspecified with intoxication, unspecified
[2018-01-29] MEDS: traMADol 50 MG TABLET PO PRN ×2 (14:06→22:05)
[2018-01-29] MEDS ORDERED: traMADol 50 MG TABLET PO ONE (15:40)
[2018-01-29] MEDS: Melatonin 3 MG TABLET PO PRN (21:38)
[2018-01-30] MEDS: Levalbuterol Neb 1.25 MG/3 ML IH SCH ×2 (04:09→10:48)
[2018-01-30 04:27] LABS: Hematocrit 41.7 % (37.5-50.1); Hemoglobin 13.4 g/dL (12.9-16.9); Immature Granulocytes % 0.9 % (0-4); Lymphocytes # 0.6 K/mcL (0.6-4.6); Lymphocytes % 11.2 %; Mean Corpuscular HGB Conc 32.1 g/dL (31.6-35.5); Mean Corpuscular Hemoglobin 31.7 pg (28.0-33.3); Mean Corpuscular Volume 98.6 fL (83.0-100.0); Mean Platelet Volume 10.1 fL (9.4-12.4); Monocytes # 0.2 K/mcL (0.0-1.3); Monocytes % 3.2 %; Neutrophils # 4.8 K/mcL (1.6-8.9); Platelet Count 170 K/mcL (140-400); Red Blood Count 4.23 M/mcL (4.19-5.50); Red Cell Distribution Width 13.9 % (11.5-14.5); Segmented Neutrophils % 84.7 %
[2018-01-30 04:49] LABS: BUN/Creatinine Ratio 19 (6-26); Blood Urea Nitrogen 10 mg/dL (6-20); Calcium 9.3 mg/dL (8.6-10.3); Carbon Dioxide 31 mEq/L (23-29); Chloride 102 mEq/L (98-107); Glucose 175 mg/dL (70-105); Osmolality,Calculated 291 (280-300); Sodium 139 mEq/L (136-145); eGFR For Non-African Americans > 60 (> 60)
[2018-01-30] MEDS: *HR* Enoxaparin 40 MG/0.4 ML SYRINGE SQ SCH (05:04)
[2018-01-30] MEDS: Dexmedetomidine HCl 400 MCG/100 ML MLS IVC SCH (05:08)
[2018-01-30] MEDS: traMADol 50 MG TABLET PO PRN (08:39)
[2018-01-30] MEDS: amLODIPine 5 MG TABLET PO SCH (08:40)
[2018-01-30] MEDS: Vitamin B Complex/Vit C/Vit E 1 EACH TABLET PO SCH (08:40)
[2018-01-30] MEDS: Folic Acid 1 MG TABLET PO SCH (08:40)
[2018-01-30] MEDS: Thiamine (B-1) 100 MG TABLET PO SCH (08:40)
[2018-01-30] MEDS: Nystatin SUSP 5 ML UD.LIQ PO SCH (08:40)
[2018-01-30] MEDS ORDERED: predniSONE 20 MG TABLET PO SCH (09:00)
--- NOTE | 2018-01-30 09:24 | Internal Med Progress Note ---
<Kaitlyn Rodríguez - Last Filed: 01/30/18 10:50> Hospitalist Progress Note - Encounter Date of Encounter: 01/30/18 Time of Encounter: 09:00 - Subjective Interval History: Patient seen and examined. No acute events overnight. He is resting comfortably in bed. Patient is alert and oriented x3. He states he wants to go home. States hes not doing anything in the hospital but getting weaker and weaker. Admits shortness of breath. Admits tremors. Denies cough. Denies sore throat, dysphagia. Denies fever, chills. Denies chest pain. Denies abdominal pain, nausea/vomiting, diarrhea/constipation. Denies swelling. - Exam Vitals: Temp Pulse Resp BP Pulse Ox 97.4 F L 83 16 127/83 94 01/30/18 07:20 01/30/18 07:20 01/30/18 07:20 01/30/18 07:20 01/30/18 07:20 Exam: General: Normal body habitus. Alert and oriented x3. No acute distress. Tremors. Head: atraumatic, normocephalic. Eye: pupils equal and round. Sclera anicteric. EOMI. Mouth: oral mucosa moist. No thrush observed. Neck: supple. Trachea midline. Lungs: Mild diffuse crackles. No rhonchi or wheezes. Moderate respiratory distress with increased work of breathing and pursed lips with expiration. Oxygen saturation 92% on room air. Cardiovascular: Normal S1 & S2. No rubs or gallops. No JVD. Pulse regular. Abdomen: Soft. Normal bowel sounds. Nondistended, no rigidity. Nontender. Extremities: No deformity, edema or tenderness, no joint swelling or clubbing. Skin: warm, dry, and intact. - Assessment and Plan (1) Delirium tremens Current Visit: Yes Status: Acute Assessment and Plan: Pt went into active DT's 01/22/18, so he was transferred to step down unit and started him on Precedex gtt. Improved. Managed with Librium, Ativan, and Precedex. Discontinue Precedex, as tolerated. Switched Librium to Serax. Monitor on telemetry. (2) Acute respiratory distress Current Visit: Yes Status: Acute Assessment and Plan: Upon arrival pt required 6L O2 despite not using oxygen at home. Improved. Currently satting 92% on room air. Continue to monitor. (3) COPD exacerbation Current Visit: Yes Status: Acute Assessment and Plan: History of COPD, not on home oxygen. CXR found COPD with no acute pneumonia. Completed 4 days of Levaquin as prophylactic antibiotic therapy on 01/24. Continue Prednisone 40 BID (started 01/28), due to moderate respiratory distress. SRINI Duoneb Q4H. (4) Alcoholic intoxication Current Visit: Yes Status: Acute Assessment and Plan: Pt consumes 24-30 beers per day and arrived to ED with alcohol level of 228 (H) Pt has been counseled regarding cessation and expresses wishes to do so. On admission, CIWA Score 10. Cardiac monitoring Librium switched to Serax. Ativan prn. Precedex drip (01/22). D/C (01/25) and restarted (01/25). D/C and restarted (01/26) as well. D/C today. Banana Bag QD to supplement pt with: Thiamine, multivitamin , Folate PO Opening Machine Cleaner consulted regarding possible alcohol rehabilitation programs following d/c. (5) Hypertensive urgency Current Visit: Yes Status: Acute Assessment and Plan: Pt presented with bp 214/117 Today, BP 145/92. Most likely due to COPD exacerbation/respiratory distress Norvasc 5 mg PO daily. Hydralazine IV PRN (6) Hyponatremia Current Visit: Yes Status: Acute Assessment and Plan: Pt presented with mild hyponatremia 129 (L) Pt was hydrated with IV saline Resolved. Continue to monitor. (7) Alcohol dependence Current Visit: No Status: Acute (8) Tobacco dependence Current Visit: Yes Status: Acute Assessment and Plan: Counseled to quit smoking Placed on nicotine patch (9) Substance abuse Current Visit: Yes Status: Acute Assessment and Plan: Pt presented with UDS positive for marijuana Counseled for cessation (10) Oral candidiasis Current Visit: Yes Status: Acute Assessment and Plan: Possibly secondary to steroid treatment. Continue Day 6 of nystatin swish and swallow. Continue until 01/31 for 7 day course. DVT Prophylaxis: Lovenox - Time Spent with Patient Total time spent is greater than 50% in coordination of care (as documented) at patient's floor/unit and/or counseling patient: Internal Medicine: Result - Labs CBC & Chem 7: 01/30/18 04:05 01/30/18 04:05 Labs: Short CBC 01/30/18 Range/Units 04:05 WBC 5.6 (4.3-11.1) K/mcL Hgb 13.4 (12.9-16.9) g/dL Hct 41.7 (37.5-50.1) % Plt Count 170 (140-400) K/mcL Neutrophils # 4.8 (1.6-8.9) K/mcL BMP 01/30/18 04:05 Sodium 139 Potassium 4.0 Chloride 102 Carbon Dioxide 31 H BUN 10 Creatinine 0.52 L Glucose 175 H Calcium 9.3 - ABG Interpretation ABG results: PT/INR, D-dimer PT 10.6 Seconds (9.4-12.1) 01/21/18 11:37 Consult Discharge Plan - Plan Referrals: Mikala Sandra [Advanced Practice Nurse] - 02/01/18 10:20 am () <Inge Wheatley - Last Filed: 01/30/18 13:25> Hospitalist Progress Note - Encounter Date of Encounter: 01/30/18 - Exam Vitals: Temp Pulse Resp BP Pulse Ox 98.0 F 131 18 174/115 93 01/30/18 11:23 01/30/18 11:23 01/30/18 11:23 01/30/18 11:23 01/30/18 11:23 - Assessment and Plan (1) Alcohol dependence Current Visit: No Status: Acute (2) Alcoholic intoxication Current Visit: Yes Status: Acute (3) COPD exacerbation Current Visit: Yes Status: Acute (4) Hyponatremia Current Visit: Yes Status: Acute (5) Acute respiratory distress Current Visit: Yes Status: Acute (6) Hypertensive urgency Current Visit: Yes Status: Acute (7) Tobacco dependence Current Visit: Yes Status: Acute (8) Substance abuse Current Visit: Yes Status: Acute (9) Delirium tremens Current Visit: Yes Status: Acute (10) Oral candidiasis Current Visit: Yes Status: Acute - Time Spent with Patient Total time spent is greater than 50% in coordination of care (as documented) at patient's floor/unit and/or counseling patient: Internal Medicine: Result - Labs CBC & Chem 7: 01/30/18 04:05 01/30/18 04:05 Labs: Short CBC 01/30/18 Range/Units 04:05 WBC 5.6 (4.3-11.1) K/mcL Hgb 13.4 (12.9-16.9) g/dL Hct 41.7 (37.5-50.1) % Plt Count 170 (140-400) K/mcL Neutrophils # 4.8 (1.6-8.9) K/mcL BMP 01/30/18 04:05 Sodium 139 Potassium 4.0 Chloride 102 Carbon Dioxide 31 H BUN 10 Creatinine 0.52 L Glucose 175 H Calcium 9.3 - ABG Interpretation ABG results: PT/INR, D-dimer PT 10.6 Seconds (9.4-12.1) 01/21/18 11:37 - Attending Attestation Seen and assessed. Agree with plan per resident Plan Delirium tremens. Weaned off precedex drip, continue ativan and serax round the clock <Kaitlyn Rodríguez - Last Filed: 01/30/18 10:50> (4) Alcoholic intoxication Qualifiers: Complication of substance-induced condition: with unspecified complication Qualified Code(s): F10.929 - Alcohol use, unspecified with intoxication, unspecified (7) Alcohol dependence Qualifiers: Substance use status: in withdrawal Complication of substance-induced condition: uncomplicated Qualified Code(s): F10.230 - Alcohol dependence with withdrawal, uncomplicated <Inge Wheatley A - Last Filed: 01/30/18 13:25> (1) Alcohol dependence Qualifiers: Substance use status: in withdrawal Complication of substance-induced condition: uncomplicated Qualified Code(s): F10.230 - Alcohol dependence with withdrawal, uncomplicated (2) Alcoholic intoxication Qualifiers: Complication of substance-induced condition: with unspecified complication Qualified Code(s): F10.929 - Alcohol use, unspecified with intoxication, unspecified
[2018-01-30 11:25] VITALS: BP 174/115
--- NOTE | 2018-01-30 16:55 | Discharge Summary ---
<Kaitlyn Rodríguez - Last Filed: 01/30/18 16:52> Date of Encounter: 01/30/18 Time of Encounter: 09:00 - Discharge Diagnosis (1) Delirium tremens Priority: Primary Status: Acute (2) Acute respiratory distress Priority: Primary Status: Acute (3) COPD exacerbation Priority: Primary Status: Acute (4) Alcoholic intoxication Priority: Primary Status: Acute Qualifiers: Complication of substance-induced condition: with unspecified complication Qualified Code(s): F10.929 - Alcohol use, unspecified with intoxication, unspecified (5) Hypertensive urgency Priority: Primary Status: Acute (6) Hyponatremia Priority: Primary Status: Acute (7) Alcohol dependence Priority: Primary Status: Acute Qualifiers: Substance use status: in withdrawal Complication of substance-induced condition: uncomplicated Qualified Code(s): F10.230 - Alcohol dependence with withdrawal, uncomplicated (8) Tobacco dependence Priority: Secondary Status: Acute (9) Substance abuse Priority: Secondary Status: Acute (10) Oral candidiasis Priority: Primary Status: Acute Hospital course: Mr. Martínez is a 57 year old male with a known past medical history of COPD - not on home oxygen, hypertension, chronic tobacco dependence, substance abuse, chronic alcoholic dependence holdings almost to 24 to 30 beers everyday. He had his last alcohol this morning before he came to the ER. Patient presented to the ER on 01/21 complaining about he wants to quit drinking alcohol. Also he has been having worsening shortness of breath from last 2 to 3 days which have not improved even after using more frequent nebulizers at home. He denied any sick contacts at home. He denied any cough/expectoration. He does smoke one pack per day. When he first presented to the ER patient was very hypoxic and in severe respiratory distress. He was required 6 L oxygen initially through nasal cannula. On presentation, patient was afebrile, tachycardic and tachypneic. He did have uncontrolled blood pressure initially BP @ 214/117. CBC was unremarkable. BMP revealed mild hyponatremia. Hepatic panel was unremarkable. Troponin and BNP were normal. Alcohol level was 228. Urine drug screen was positive for THC. Salicylates and acetaminophen were normal. Acute respiratory distress and COPD exacerbation were treated with oxygen supplementation, bronchodilators, steroids, and prophylactic Levaquin. Alcohol intoxication was treated with Librium and Ativan, banana bag, and he was placed on CIWA protocol. Hypertensive urgency was likely secondary to COPD exacerbation and respiratory distress and was treated with Norvasc. Mild hyponatremia likely secondary to dehydration was treated with normal saline IVF. On 01/22, patient went into delirium tremens. He was transferred to ICU and started on precedex drip. Once stabilized, patient was transferred back to floor. Repeated attempts were made over course of hospitalization to discontinue precedex drip. After discontinuation, patient would develop tachycardia, agitation, and tremors; and precedex was restarted. Precedex drip was again discontinued today on 01/30. Today, patient states he wants to go home. Patient is in moderate respiratory distress with increased work of breathing and pursed lips with expiration. He is tachycardic and tremors are observed. Patient was informed that he is not ready for discharge and encouraged to reconsider. Patient was advised of dangers of leaving hospital without full and adequate treatment. Dangers include seizure, respiratory failure, fall injury, and even . Patient understood what was said and still stated that hell crawl home if he has to. Patient did leave against medical advice despite multiple attempts by multiple personnel to advise him otherwise. - Time Spent with Patient Total time spent providing and/or coordinating discharge services: Greater than 30 minutes (42 minutes) - Discharge Medications Home Medications: No Known Home Drugs 01/21/18 [History] Allergies/Adverse Reactions: 3 Allergy/AdvReac Type Severity Reaction Status Date / Time No Known Allergies Allergy Verified 10/04/15 20:53 Date of admission: 01/21/18 13:24 Primary care physician: PCP NONE Consults: 01/21/18 13:30 Consult to Degreasing Wheel Operator [CONS] Routine Reason for SW Consult: alcohol dependence 01/25/18 11:43 Consult to Occupational Therapy [CONS] Routine Comment: Evaluate, develop and implement POC Reason for Consult: Hospital day 4 for alcohol withdrawal with DT. Needs OT eval. Does patient have active BEDREST order?: No Is patient medically & hemodynamically stable?: Yes Consult to Physical Therapy [CONS] Routine Comment: Evaluate, develop and implement POC Reason for Consult: Hospital day 4 for alcohol withdrawal with DT. Needs PT eval. Does patient have active BEDREST order?: No Is patient medically & hemodynamically stable?: Yes Discharging clinician: Kaitlyn Rodríguez Anticipated date of discharge: 01/30/18 - Constitutional Vitals: Temp Pulse Resp BP Pulse Ox 98.0 F 131 18 174/115 93 01/30/18 11:23 01/30/18 11:23 01/30/18 11:23 01/30/18 11:23 01/30/18 11:23 General appearance: Present: cooperative, disheveled, mild distress, A&O X 3, answers questions appropriately Exam: General: Normal body habitus. Alert and oriented x3. No acute distress. Tremors. Head: atraumatic, normocephalic. Eye: pupils equal and round. Sclera anicteric. EOMI. Mouth: oral mucosa moist. No thrush observed. Neck: supple. Trachea midline. Lungs: Mild diffuse crackles. No rhonchi or wheezes. Moderate respiratory distress with increased work of breathing and pursed lips with expiration. Oxygen saturation 92% on room air. Cardiovascular: Normal S1 & S2. No rubs or gallops. No JVD. Pulse regular. Abdomen: Soft. Normal bowel sounds. Nondistended, no rigidity. Nontender. Extremities: No deformity, edema or tenderness, no joint swelling or clubbing. Skin: warm, dry, and intact. - Patient Status Disposition: Left Against Medical Advice Condition: Serious - Discharge Instructions Follow Up With: Mikala Sandra [Advanced Practice Nurse] - 02/01/18 10:20 am () <Inge Wheatley - Last Filed: 01/31/18 07:22> Orders not resulted at time of discharge: Pending orders 01/25/18 09:03 Bedside Swallowing Evaluation [EVAL] Routine Date of Encounter: 01/31/18 - Discharge Diagnosis (1) Alcohol dependence Status: Acute Qualifiers: Substance use status: in withdrawal Complication of substance-induced condition: uncomplicated Qualified Code(s): F10.230 - Alcohol dependence with withdrawal, uncomplicated (2) Alcoholic intoxication Status: Acute Qualifiers: Complication of substance-induced condition: with unspecified complication Qualified Code(s): F10.929 - Alcohol use, unspecified with intoxication, unspecified (3) COPD exacerbation Status: Acute (4) Hyponatremia Status: Acute (5) Acute respiratory distress Status: Acute (6) Hypertensive urgency Status: Acute (7) Tobacco dependence Status: Acute (8) Substance abuse Status: Acute (9) Delirium tremens Status: Acute (10) Oral candidiasis Status: Acute Hospital course: Mr. Martínez is a 57 year old male - Time Spent with Patient Total time spent providing and/or coordinating discharge services: Date of admission: 01/21/18 13:24 Primary care physician: PCP NONE Consults: 01/21/18 13:30 Consult to Degreasing Wheel Operator [CONS] Routine Reason for SW Consult: alcohol dependence 01/25/18 11:43 Consult to Occupational Therapy [CONS] Routine Comment: Evaluate, develop and implement POC Reason for Consult: Hospital day 4 for alcohol withdrawal with DT. Needs OT eval. Does patient have active BEDREST order?: No Is patient medically & hemodynamically stable?: Yes Consult to Physical Therapy [CONS] Routine Comment: Evaluate, develop and implement POC Reason for Consult: Hospital day 4 for alcohol withdrawal with DT. Needs PT eval. Does patient have active BEDREST order?: No Is patient medically & hemodynamically stable?: Yes - Constitutional Vitals: Temp Pulse Resp BP Pulse Ox 98.0 F 131 18 174/115 93 01/30/18 11:23 01/30/18 11:23 01/30/18 11:23 01/30/18 11:23 01/30/18 11:23 - Attending Attestation General: Normal body habitus. Alert and oriented x3. No acute distress. Tremors. Head: atraumatic, normocephalic. Eye: pupils equal and round. Sclera anicteric. EOMI. Mouth: oral mucosa moist. No thrush observed. Neck: supple. Trachea midline. Lungs: Mild diffuse crackles. No rhonchi or wheezes. Moderate respiratory distress with increased work of breathing and pursed lips with expiration. Oxygen saturation 92% on room air. Cardiovascular: Normal S1 & S2. No rubs or gallops. No JVD. Pulse regular. Abdomen: Soft. Normal bowel sounds. Nondistended, no rigidity. Nontender. Extremities: No deformity, edema or tenderness, no joint swelling or clubbing. Skin: warm, dry, and intact. Plan Alcohol withdrawal with delirium tremens. Was improvng on serax and ativan. Left AMA. Agree with discharge summary as above
== END 2018-01-30 15:03 | disposition left against medical advice (07) | DRG 190 ==
LOC: 3ANU 11:13 → EMEROOARM 11:13 → SUATTDRO 13:24 → 3ANU 13:33 → ICNU 01-22 13:34 → 2NNU 01-23 01:17
PROVIDERS: ADMIT Family Medicine; ATTEND Student in an Organized Health Care Education/Training Program

== ENCOUNTER 2018-01-31 09:55 | Inpatient (IN) ==
--- NOTE | 2018-01-31 10:26 | Emergency Department Note ---
Disposition Clinical Impression: Alcohol abuse, COPD exacerbation, Alcohol withdrawal syndrome Alcohol dependence Qualifiers: Substance use status: in withdrawal Complication of substance-induced condition : uncomplicated Qualified Code(s): F10.230 - Alcohol dependence with withdrawal , uncomplicated Disposition: Admitted As Inpatient Condition: Fair Forms: ED Satisfaction Letter Time of Disposition: 11:49 Alcohol HPI - General Chief Complaint: ED Alcohol Abuse Stated Complaint: ETOH Withdrawal Time Seen by Provider: 01/31/18 10:01 Source: patient Mode of arrival: ambulatory Limitations: no limitations Nursing Notes Reviewed: Yes Vital Signs Reviewed: Yes - History of Present Illness HPI Narrative: 57-year-old male presents to the emergency department after leaving the hospital AMA yesterday after being admitted for 10 days due to alcohol withdrawals and COPD exacerbation. Patient was placed on Precedex drip Precedex drip was stopped on 01/30 and reading through the patient's recent hospital stay showed that he left AMA and did sign out saying that he felt much better and felt like he could go home and he would crawl out of as what it took. Patient states when he got home he said he continued to have the shakes and actually was having a hard time walking due to the shakes being so bad. He said he did not drink any alcohol. Said his last drink still is 01/21. They did not take any illicit drugs while he was out. The reason why he left he states that he felt like he could do it on his own and felt like he did not need to be admitted at this time. The main reason came back as the felt that he was having worsening shakes and also he was unable to walk as his balance has worsened. Patient otherwise has no complaints including no fevers, chills, nausea, vomiting, headaches, blurry vision, neck pain, back pain, chest pain, shortness of breath, abdominal pain, change in bowel movements, pain with urination, pain or tingling or down the arms or legs or generalized weakness. - Related Data Home Medications Medication Instructions Recorded Confirmed No Known Home Drugs 01/21/18 01/21/18 Allergies Allergy/AdvReac Type Severity Reaction Status Date / Time No Known Allergies Allergy Verified 10/04/15 20:53 All systems ED: reviewed and negative except as stated. Review of Systems: As Per HPI Past Medical History - Past Medical History Attestation: Yes The following information was validated with the patient. Source: patient Medical history: Reports: COPD Surgical history: Reports: orthopedic, other Psychiatric history: Reports: other - Social History Smoking Status: Light tobacco smoker Smokeless Tobacco Status: No Alcohol use: Reports: heavy, recent Drug use: Reports: prescription drug abuse Physical Exam - General Limitations: no limitations General appearance: alert, in no apparent distress - Head Head exam: atraumatic, normocephalic, normal inspection - Eye Eye exam: Present: normal appearance, PERRL, EOMI - ENT ENT exam: normal exam, normal oropharynx, mucous membranes moist - Neck Neck exam: Present: normal inspection, full ROM, trachea midline - Chest Chest inspection: Present: normal inspection, symmetric chest wall rise - Respiratory Respiratory exam: Present: normal lung sounds bilaterally - Cardiovascular Cardiovascular exam: Present: regular rate, normal rhythm, normal heart sounds - Abdominal Exam Abdominal exam: Present: soft, Non-Tender, normal bowel sounds. Absent: tenderness, distention, guarding, rebound, rigidity - Extremities Exam Extremities exam: Present: normal inspection, full ROM. Absent: tenderness, pedal edema - Expanded Lower Extremity Exam Neurovascular/Tendon exam: Present: normal capillary refill. Absent: pulse deficit, motor deficit, sensory deficit, tendon deficit - Back Exam Back exam: Present: normal inspection, full ROM. Absent: tenderness, CVA tenderness (R), CVA tenderness (L) - Neurological Exam Neurological exam: Present: alert, oriented X3 - Skin Skin exam: Present: warm, dry, intact, normal color Course Course Narrative: We will repeat labs including CBC, BMP, urinalysis, salicylates, acetaminophen, ethanol level as well as urine drug screen and urinalysis. We will also repeat chest x-ray and EKG. If everything comes back within normal limits and no other findings are found we will call the hospitalist for admission for continued alcohol detoxification. Vital Signs Temperature 97.8 F 01/31/18 10:01 Pulse Rate 104 01/31/18 10:01 Respiratory Rate 14 01/31/18 10:01 Blood Pressure 162/97 01/31/18 10:01 O2 Sat by Pulse Oximetry 94 01/31/18 10:01 Temperature 97.8 F 01/31/18 10:11 Pulse Rate 104 01/31/18 10:11 Respiratory Rate 18 01/31/18 11:53 Blood Pressure 162/97 01/31/18 10:11 O2 Sat by Pulse Oximetry 92 01/31/18 11:53 Oxygen Delivery Oxygen Delivery Room Air Alcohol - MDM Narrative Medical decision making narrative: 57-year-old male presents to the emergency department complaining of tremors after withdrawing from alcohol for now 11 days. He did leave AMA. Patient states he did not drink any alcohol while he was out. He has had worsening shortness of breath while he was out. He states 5 daily this at home but now realizes that he cannot he does need help with the medications. We did do basic labs which showed no acute abnormalities. Patient had no alcohol in his system. Chest x-ray had no acute findings. Although we was short of breath related give him a dose of Solu-Medrol as well as DuoNeb's. Patient was also given 1 mg Ativan as well as a banana bag here. Patient does want to come back to the hospital. So we will admit the patient to the hospitalist team. I spoke with . /nho who agreed to admit the patient to their service. Patient is admitted in stable condition. Chest X-Ray 01/31/18 10:28 IMPRESSION: 1. No acute cardiopulmonary process. 2. Emphysema. D/ / Girma Weems MD / Girma Weems MD Interpreting Provider: Girma Weems MD - Medical Records Medical records reviewed: Yes I reviewed the patient's medical records. - Lab Data Lab results reviewed: Yes I reviewed the patient's lab results. Result diagrams: 01/31/18 10:32 01/31/18 10:32 Lab Results 01/31/18 01/31/18 01/31/18 Range/Units 10:32 10:32 10:32 WBC 11.5 H D (4.3-11.1) K/mcL RBC 4.94 (4.19-5.50) M/mcL Hgb 15.5 D (12.9-16.9) g/dL Hct 48.4 (37.5-50.1) % MCV 98.0 (83.0-100.0) fL MCH 31.4 (28.0-33.3) pg MCHC 32.0 (31.6-35.5) g/dL RDW 13.8 (11.5-14.5) % Plt Count 224 (140-400) K/mcL MPV 10.0 (9.4-12.4) fL Immature Gran % 0.7 (0-4) % Seg Neutrophils % 64.6 % Lymphocytes % 23.8 % Monocytes % 10.5 % Eosinophils % 0.3 % Basophils % 0.1 % Neutrophils # 7.4 (1.6-8.9) K/mcL Lymphocytes # 2.7 (0.6-4.6) K/mcL Monocytes # 1.2 (0.0-1.3) K/mcL Eosinophils # 0.0 (0.0-0.6) K/mcL Basophils # 0.0 (0.0-0.2) K/mcL Sodium 141 (136-145) mEq/L Potassium 3.0 L (3.5-5.1) mEq/L Chloride 100 (98-107) mEq/L Carbon Dioxide 31 H (23-29) mEq/L BUN 12 (6-20) mg/dL Creatinine 0.67 L (0.70-1.30) mg/dL Est GFR ( Amer) > 60 (> 60) Est GFR (Non-Af Amer) > 60 (> 60) BUN/Creatinine Ratio 18 (6-26) Glucose 74 (70-105) mg/dL Calculated Osmolality 290 (280-300) Calcium 9.8 (8.6-10.3) mg/dL Magnesium 1.9 (1.6-2.6) mg/dL Total Bilirubin 0.5 (0.3-1.0) mg/dL AST 104 H (13-39) Units/L ALT 130 H (7-52) Units/L Alkaline Phosphatase 53 (34-104) Units/L Serum Total Protein 7.5 (6.4-8.9) g/dL Albumin 4.3 (3.5-5.7) g/dL Globulin 3.2 (2.4-3.5) g/dL Albumin/Globulin Ratio 1.3 (1.1-2.2) Lipase 10 L (11-82) Units/L Salicylates < 2.5 L (15.0-30.0) mg/dL Acetaminophen < 10 L (10-20) mcg/mL Ethyl Alcohol < 10 (Less than 10) mg/dL - Radiology Data Radiology results reviewed: Yes I reviewed the patient's radiology results. - EKG Data EKG attestation: Yes I reviewed and interpreted this EKG. EKG results narrative: EKG done at 1040 review myself and attending shows sinus rhythm at a rate of 94 , VT interval 110, QRS 84, QTc [address] changes no acute T-wave changes no other signs of ischemia. No signs of heart block, hypertrophy, heart strain. No Daysi PW/Brugada/HOCM. EKG is unchanged when compared with old EKG done 01/25/18 S.B.A.R. - S.B.A.R. Situation: Demographics, MOA Background: Presenting Complaint, Relevant PMH, Meds, & Allergies Assessment: Vital Signs, Course and respsone to treatment, Exam Concerns, Patient/Family Expectation, Pertinant Lab Results, Outstanding Labs Recommendation: Barrier(s) to disposition, Recommendation based on pending studies, treatments, or consults S.B.A.R. Report Given to: Dr. Noriega [email or web address] Repor Time: 11:50 Attestation Statement - Attestation Attestation: I, Mark Da Silva DO, examined this patient [id number] and my medical decision-making was reviewed with Dr. Brayan Lee, Resident Physician. I agree with the documented findings, disposition and treatment plan as described except to the extent set forth below. Please see my progress notes for details.
[2018-01-31] MEDS ORDERED: MVI, adult with vitamin K 10 ML in 0.9 % Sodium Chloride 1,000 ML IVC ONE (10:47)
[2018-01-31] MEDS ORDERED: *HR* LORazepam 1 MG TABLET PO ONE (10:47)
[2018-01-31] MEDS ORDERED: *HR* Morphine 2 MG/ML SYRINGE IVP PRN (10:48)
[2018-01-31] MEDS ORDERED: Ondansetron 4 MG/2 ML VIAL IVP ONE (10:48)
[2018-01-31 10:52] LABS: Basophils % 0.1 %; Eosinophils % 0.3 %; Hematocrit 48.4 % (37.5-50.1); Immature Granulocytes % 0.7 % (0-4); Lymphocytes # 2.7 K/mcL (0.6-4.6); Lymphocytes % 23.8 %; Mean Corpuscular Hemoglobin 31.4 pg (28.0-33.3); Monocytes # 1.2 K/mcL (0.0-1.3); Monocytes % 10.5 %; Neutrophils # 7.4 K/mcL (1.6-8.9); Platelet Count 224 K/mcL (140-400); Red Blood Count 4.94 M/mcL (4.19-5.50); Red Cell Distribution Width 13.8 % (11.5-14.5); Segmented Neutrophils % 64.6 %
[2018-01-31 10:54] LABS: Hemoglobin 15.5 g/dL (12.9-16.9)
[2018-01-31 11:02] LABS: Acetaminophen < 10 mcg/mL (10-20); Ethanol < 10 mg/dL (Less than 10); Salicylate < 2.5 mg/dL (15.0-30.0)
[2018-01-31 11:22] LABS: Alanine Aminotransferase 130 Units/L (7-52); Albumin 4.3 g/dL (3.5-5.7); Albumin/Globulin Ratio 1.3 (1.1-2.2); Alkaline Phosphatase 53 Units/L (34-104); Aspartate Amino Transferase 104 Units/L (13-39); BUN/Creatinine Ratio 18 (6-26); Bilirubin,Total 0.5 mg/dL (0.3-1.0); Blood Urea Nitrogen 12 mg/dL (6-20); Calcium 9.8 mg/dL (8.6-10.3); Carbon Dioxide 31 mEq/L (23-29); Chloride 100 mEq/L (98-107); Globulin 3.2 g/dL (2.4-3.5); Glucose 74 mg/dL (70-105); Lipase 10 Units/L (11-82); Magnesium 1.9 mg/dL (1.6-2.6); Osmolality,Calculated 290 (280-300); Sodium 141 mEq/L (136-145); Total Protein 7.5 g/dL (6.4-8.9); eGFR For Non-African Americans > 60 (> 60)
[2018-01-31] MEDS ORDERED: methylPREDNISolone 125 MG/2 ML VIAL IVP ONE (11:22)
[2018-01-31] MEDS ORDERED: Ipratropium/Albuterol Neb 3 ML IH ONE (11:22)
--- NOTE | 2018-01-31 11:24 | Emergency Department Note ---
Disposition Clinical Impression: Alcohol abuse, COPD exacerbation Alcohol dependence Qualifiers: Substance use status: in withdrawal Complication of substance-induced condition : uncomplicated Qualified Code(s): F10.230 - Alcohol dependence with withdrawal , uncomplicated Alcohol withdrawal syndrome Qualifiers: Complication of substance-induced condition: uncomplicated Qualified Code(s): F10.230 - Alcohol dependence with withdrawal, uncomplicated Disposition: Admitted As Inpatient Condition: Fair Forms: ED Satisfaction Letter Time of Disposition: 12:02 General Adult HPI - General Chief complaint: ED Alcohol Abuse Stated complaint: ETOH Withdrawal Time Seen by Provider: 01/31/18 10:01 Source: patient Mode of arrival: ambulatory Limitations: no limitations - History of Present Illness Pain Scale: 8 - Related Data Home Medications Medication Instructions Recorded Confirmed No Known Home Drugs 01/21/18 01/21/18 Allergies Allergy/AdvReac Type Severity Reaction Status Date / Time No Known Allergies Allergy Verified 10/04/15 20:53 Past Medical History - Past Medical History Medical history: Reports: COPD Surgical history: Reports: orthopedic, other Psychiatric history: Reports: other - Social History Smoking Status: Light tobacco smoker Smokeless Tobacco Status: No Alcohol use: Reports: heavy, recent Drug use: Reports: prescription drug abuse Physical Exam - General Limitations: no limitations General appearance: alert, in no apparent distress Course Vital Signs Temperature 97.8 F 01/31/18 10:01 Pulse Rate 104 01/31/18 10:01 Respiratory Rate 14 01/31/18 10:01 Blood Pressure 162/97 01/31/18 10:01 O2 Sat by Pulse Oximetry 94 01/31/18 10:01 Temperature 97.8 F 01/31/18 10:11 Pulse Rate 104 01/31/18 10:11 Respiratory Rate 18 01/31/18 11:53 Blood Pressure 162/97 01/31/18 10:11 O2 Sat by Pulse Oximetry 92 01/31/18 11:53 Oxygen Delivery Oxygen Delivery Room Air Medical Decision Making - Lab Data Result diagrams: 01/31/18 10:32 01/31/18 10:32 Lab Results 01/31/18 01/31/18 01/31/18 Range/Units 10:32 10:32 10:32 WBC 11.5 H D (4.3-11.1) K/mcL RBC 4.94 (4.19-5.50) M/mcL Hgb 15.5 D (12.9-16.9) g/dL Hct 48.4 (37.5-50.1) % MCV 98.0 (83.0-100.0) fL MCH 31.4 (28.0-33.3) pg MCHC 32.0 (31.6-35.5) g/dL RDW 13.8 (11.5-14.5) % Plt Count 224 (140-400) K/mcL MPV 10.0 (9.4-12.4) fL Immature Gran % 0.7 (0-4) % Seg Neutrophils % 64.6 % Lymphocytes % 23.8 % Monocytes % 10.5 % Eosinophils % 0.3 % Basophils % 0.1 % Neutrophils # 7.4 (1.6-8.9) K/mcL Lymphocytes # 2.7 (0.6-4.6) K/mcL Monocytes # 1.2 (0.0-1.3) K/mcL Eosinophils # 0.0 (0.0-0.6) K/mcL Basophils # 0.0 (0.0-0.2) K/mcL Sodium 141 (136-145) mEq/L Potassium 3.0 L (3.5-5.1) mEq/L Chloride 100 (98-107) mEq/L Carbon Dioxide 31 H (23-29) mEq/L BUN 12 (6-20) mg/dL Creatinine 0.67 L (0.70-1.30) mg/dL Est GFR ( Amer) > 60 (> 60) Est GFR (Non-Af Amer) > 60 (> 60) BUN/Creatinine Ratio 18 (6-26) Glucose 74 (70-105) mg/dL Calculated Osmolality 290 (280-300) Calcium 9.8 (8.6-10.3) mg/dL Magnesium 1.9 (1.6-2.6) mg/dL Total Bilirubin 0.5 (0.3-1.0) mg/dL AST 104 H (13-39) Units/L ALT 130 H (7-52) Units/L Alkaline Phosphatase 53 (34-104) Units/L Serum Total Protein 7.5 (6.4-8.9) g/dL Albumin 4.3 (3.5-5.7) g/dL Globulin 3.2 (2.4-3.5) g/dL Albumin/Globulin Ratio 1.3 (1.1-2.2) Lipase 10 L (11-82) Units/L Salicylates < 2.5 L (15.0-30.0) mg/dL Acetaminophen < 10 L (10-20) mcg/mL Ethyl Alcohol < 10 (Less than 10) mg/dL Attestation Statement - Attestation Attestation: I, Mark Da Silva DO, examined this patient [id number] and my medical decision-making was reviewed with Dr. Brayan Lee, Resident Physician. I agree with the documented findings, disposition and treatment plan as described except to the extent set forth below. Please see my progress notes for details. 57-year-old male presents emergency room for evaluation of tremors. Patient was in the hospital for approximate 7 days when he left AGAINST MEDICAL ADVICE yesterday. He is in the hospital from January 21 for alcohol abuse and withdrawal. Patient was admitted to the ICU secondary to delirium tremens. Patient has been on Ativan for several days. He is on medication related. Is also getting thiamine and folate. Patient did not go home and drink according to him. He is currently denying chest pain. He does have a history of COPD he uses inhalers at home but otherwise is unremarkable. Patient will breathing treatments and steroids here. Single dose of Ativan as well as thiamine and folate will be started. Repeat labs will be ordered. Chest x-ray will be collected. Disposition will most likely be admission. Patient has no neurologic deficits at this time. He wants to stay in the hospital this point. He fell acute clinical better yesterday and this is any sign out AGAINST MEDICAL ADVICE. Patient otherwise is asymptomatic lungs are clear heart is regular abdomen is soft. He does have what appears to be an essential tremor in the extremities at this time that does not get better with movement. Patient otherwise is in no acute distress. We will continue to monitor his symptoms are controlled repeat evaluation has been established. Patient will be admitted for continuation of care of alcohol withdrawal and essential tremor. See detailed recommendation the physical exam, medical intervention, medical decision-making disposition the resident physician's note. No critical care applied to the patient's treatment course at this time. 1200 Patient has no acute lab abnormalities. Appropriate medications have been provided. Symptoms are better this time but still present. Patient was discussed with the hospitalist Dr. crum. Patient will be admitted for continuation of care. No other recommendations or concerns outside of request a have 40 mEq potassium be provided by mouth. Patient will be admitted for continuation of care. He will be observed in emergency room until admission process is completed
[2018-01-31] MEDS ORDERED: *HR* LORazepam 2 MG/ML VIAL IVP PRN (13:33)
[2018-01-31] MEDS ORDERED: Naloxone 0.4 MG/ML INJ IVP PRN (13:36)
[2018-01-31] MEDS ORDERED: Ipratropium/Albuterol Neb 3 ML IH PRN (13:38)
--- NOTE | 2018-01-31 13:39 | Internal Med History&Physical ---
Date of Encounter: 01/31/18 Time of Encounter: 16:31 Internal Medicine - H&P: HPI Chief complaint: I am main Admitted From: Home Plans for Post Hospital Care: Home History of present illness: Mr. Martínez is a 57 year old male with a known past medical history of COPD - not on home oxygen, hypertension, chronic tobacco dependence, substance abuse, chronic alcoholic dependence holdings almost to 24 to 30 beers everyday. He was hospitalized in this facility from January 21 to yesterday 01/30 when he left AGAINST MEDICAL ADVICE. He was managed in the intensive care unit for delirium tremens and was on chronic steroid therapy, he was being tapered off prior to leaving AGAINST MEDICAL ADVICE. The patient said he went home and did not drink but he woke up this morning with uncontrollable shaking and represented to the ER to complete his management. In his last admission, he was on Precedex for a prolonged period of time. He also had acute respiratory failure with hypoxia which improved with oxygen antibiotics and breathing treatments. During that admission, he also treated for hypertensive urgency. The ER at this time shows leukocytosis improved from prior values yesterday, hypokalemia potassium 3.0, further workup unremarkable except for transaminitis. Chest x-ray showed no acute pulmonary processes. His blood pressure was elevated at time of presentation, he received 1 dose of oral lorazepam in the ER prior to transfer to the floors. he denies fever or chills, denies cough or difficulty breathing. He denies nausea or vomiting He was seen and evaluated at the bedside on the floor, he endorsed the above history, she is extremely tremulous but not confused. Chest is clear to auscultation bilaterally. He is not hypoxic and he is tachycardic. We will keep inpatient for management of acute alcohol withdrawal, possibly also benzodiazepine withdrawal. Past Med Surg Social Fam HX - Past Medical History Medical history: COPD Psychiatric history: other - Past Surgical History Surgical History: orthopedic, other - Social History Smoking Status: Light tobacco smoker Smokeless Tobacco Status: No Alcohol use: heavy, recent Drug use: prescription drug abuse - Family History Mother Living Status: Still Living Hx Family Cardiac Disorders: Yes (high blood pressure) Hx Family Endocrine Disorder: Yes (DM) Hx Family Neurologic Disorders: Yes (dementia) Father Living Status: Still Living Internal Medicine - H&P: Meds No Known Home Drugs 01/21/18 [History] 3 Allergy/AdvReac Type Severity Reaction Status Date / Time No Known Allergies Allergy Verified 01/31/18 12:05 All Systems PM: A 10-system review of systems was performed and is negative for pertinent findings except as documented above in the HPI. - Constitutional Constitutional: as per HPI - EENT Eyes: as per HPI Ears: as per HPI Nose, mouth and throat: as per HPI - Cardiovascular Cardiovascular ROS IM: as per HPI - Respiratory Respiratory: as per HPI - Gastrointestinal Gastrointestinal: as per HPI - Musculoskeletal Musculoskeletal ROS IM: as per HPI - Integumentary Integumentary IM: as per HPI - Neurological Neurological ROS: as per HPI - Hematologic/Lymphatic Hematologic/Lymphatic: as per HPI - Constitutional Vitals: Temp Pulse Resp BP Pulse Ox 97.8 F 104 20 167/101 92 01/31/18 10:11 01/31/18 10:11 01/31/18 12:56 01/31/18 12:56 01/31/18 11:53 Exam: General: AAOX3, tremulous HEENT: EOM, pupils equal, round and reactive. Cardiovascular: S1, S2, tachycardic, no m/g/r Lungs: Distant breath sounds but unable to appreciate rhonchi or wheezes. Abdomen: Soft, non-tender, no rigidity. Extremities: 1+ pedal edema up to the knees Neurological: no focal deficits Skin: No cyanotic Pulses: Carotid and radial pulses normal +2 Internal Med - H&P Results - Labs CBC & Chem 7: 01/31/18 10:32 01/31/18 10:32 - Assessment and plan (1) Alcohol withdrawal syndrome Current Visit: Yes Status: Acute Assessment and plan: Likely resolved Patient has not had a drink in 10 days Alcohol level is negative He is likely withdrawing from benzodiazepines We will resume benzos and taper accordingly Patient educated about plan, agrees with plan Qualifiers: Complication of substance-induced condition: uncomplicated Qualified Code(s ): F10.230 - Alcohol dependence with withdrawal, uncomplicated (2) Depression Current Visit: Yes Status: Chronic Assessment and plan: not on any meds at this time Not suicidal Consider low dose SSRIs prior to discharge Qualifiers: Depression Type: unspecified Qualified Code(s): F32.9 - Major depressive disorder, single episode, unspecified (3) Substance abuse Current Visit: Yes Status: Chronic Assessment and plan: THC, alcohol use Monitor for withdrawal (4) Hypertension Current Visit: Yes Status: Chronic Assessment and plan: Continue amlodipine, may be exacerbated by benzodiazepine withdrawal Qualifiers: Hypertension type: essential hypertension Qualified Code(s): I10 - Essential (primary) hypertension (5) Hypokalemia Current Visit: Yes Status: Acute Assessment and plan: Replaced po, man WNL Recheck with a.m labs (6) Pedal edema Current Visit: Yes Status: Acute Assessment and plan: Obtain ECHO Avoid IVF for now Patient with extensive alcohol hx and pedal edema r/p CMP No congestion on CXR No hypoxia this time, continue to monitor (7) COPD (chronic obstructive pulmonary disease) Current Visit: Yes Status: Chronic Assessment and plan: Not in exacerbation Duonebs prn Qualifiers: COPD type: unspecified COPD Qualified Code(s): J44.9 - Chronic obstructive pulmonary disease, unspecified (8) Benzodiazepine withdrawal Current Visit: Yes Status: Acute Assessment and plan: Continue lorazepam as for alcohol withdrawal and taper off slowly SW evaluation prior to discharge Qualifiers: Complication of substance-induced condition: uncomplicated Qualified Code(s ): F13.230 - Sedative, hypnotic or anxiolytic dependence with withdrawal, uncomplicated - Time Spent With Patient Total time spent is greater than 50% in coordination of care (as documented) at patient's floor/unit and/or counseling patient:
[2018-01-31] MEDS: *HR* LORazepam 2 MG/ML VIAL IVP PRN ×2 (15:40→20:27)
[2018-01-31] MEDS: *HR* Heparin 5,000 UNIT/ML VIAL SQ SCH (17:20)
[2018-01-31] MEDS: OXYCODONE Oral CONC 10 MG/0.5 ML ORAL.SYG SL PRN (20:27)
[2018-02-01] MEDS: *HR* Heparin 5,000 UNIT/ML VIAL SQ SCH ×3 (00:50→15:35)
[2018-02-01 03:35] LABS: Basophils % 0.2 %; Hematocrit 43.5 % (37.5-50.1); Immature Granulocytes % 0.9 % (0-4); Lymphocytes # 1.4 K/mcL (0.6-4.6); Lymphocytes % 14.2 %; Mean Corpuscular Hemoglobin 31.4 pg (28.0-33.3); Mean Corpuscular Volume 98.4 fL (83.0-100.0); Monocytes # 0.7 K/mcL (0.0-1.3); Monocytes % 6.8 %; Neutrophils # 7.6 K/mcL (1.6-8.9); Platelet Count 214 K/mcL (140-400); Red Blood Count 4.42 M/mcL (4.19-5.50); Segmented Neutrophils % 77.9 %
[2018-02-01] MEDS: OXYCODONE Oral CONC 10 MG/0.5 ML ORAL.SYG SL PRN ×4 (03:45→20:35)
[2018-02-01] MEDS: *HR* LORazepam 2 MG/ML VIAL IVP PRN ×4 (03:46→18:52)
[2018-02-01 03:54] LABS: Hemoglobin 13.9 g/dL (12.9-16.9)
[2018-02-01 04:14] LABS: Potassium 3.9 mEq/L (3.5-5.1)
[2018-02-01 04:15] LABS: BUN/Creatinine Ratio 25 (6-26); Blood Urea Nitrogen 18 mg/dL (6-20); Calcium 9.1 mg/dL (8.6-10.3); Carbon Dioxide 33 mEq/L (23-29); Chloride 105 mEq/L (98-107); Glucose 98 mg/dL (70-105); Magnesium 2.1 mg/dL (1.6-2.6); Osmolality,Calculated 300 (280-300); Phosphorous 4.5 mg/dL (2.7-4.5); Sodium 144 mEq/L (136-145); eGFR For Non-African Americans > 60 (> 60)
[2018-02-01] MEDS ORDERED: amLODIPine 5 MG TABLET PO SCH (09:00)
[2018-02-01] MEDS: Folic Acid 1 MG TABLET PO SCH (09:04)
[2018-02-01] MEDS: Vitamin B Complex/Vit C/Vit E 1 EACH TABLET PO SCH (09:04)
[2018-02-01] MEDS: Thiamine (B-1) 100 MG TABLET PO SCH (09:04)
[2018-02-01 10:48] LABS: Hepatitis A Antibody IgM Nonreactive (Nonreactive); Hepatitis B Core IgM Nonreactive (Nonreactive); Hepatitis C Virus Antibody Nonreactive (Nonreactive)
--- NOTE | 2018-02-01 13:22 | Internal Med Progress Note ---
Hospitalist Progress Note - Encounter Date of Encounter: 02/01/18 Time of Encounter: 07:45 - Subjective Interval History: patient was seen and examined at bedside. denies drinking alcohol when he left AMA two days ago. denies seizure activity tolerated breakfast, denies fever, chills, Chest pain, SOB or palpitations - Exam Vitals: Temp Pulse Resp BP Pulse Ox 98.4 F 119 18 164/90 92 02/01/18 11:24 02/01/18 11:24 02/01/18 11:24 02/01/18 11:24 02/01/18 11:24 Exam: General: AAOX3, tremulous, unkept HEENT: EOM, pupils equal, round and reactive. no neck stiffness Cardiovascular: S1, S2, tachycardic, no m/g/r Lungs: Distant breath sounds but unable to appreciate rhonchi or wheezes. Abdomen: Soft, non-tender, no rigidity. Extremities: 1+ pedal edema up to the knees Neurological: no focal deficits, bilateral tremors on outstretched hands Skin: No cyanotic Pulses: Carotid and radial pulses normal +2 - Assessment and Plan (1) Benzodiazepine withdrawal Current Visit: Yes Status: Acute Assessment and Plan: Continue lorazepam as for alcohol withdrawal and taper off slowly SW evaluation prior to discharge (2) Alcohol withdrawal syndrome Current Visit: Yes Status: Acute Assessment and Plan: Likely resolved Patient has not had a drink in 10 days Alcohol level is negative He is likely withdrawing from benzodiazepines We will resume benzos and taper accordingly mild transaminitis - hepatits panel negative- most likely from chronic alcohol use Patient educated about plan, agrees with plan thiamine, folic acid (3) Depression Current Visit: Yes Status: Chronic Assessment and Plan: not on any meds at this time Not suicidal or homicidal Consider low dose SSRIs prior to discharge (4) Substance abuse Current Visit: Yes Status: Chronic Assessment and Plan: THC, alcohol use Monitor for withdrawal (5) Hypertension Current Visit: Yes Status: Chronic Assessment and Plan: Discontinued amlodipine will start coreg 3.125 BID and titrate up as per BP adn HR may be exacerbated by benzodiazepine withdrawal will consider clonidine (6) Hypokalemia Current Visit: Yes Status: Resolved Assessment and Plan: Replaced po, mag WNL - resolved Recheck with a.m labs (7) Pedal edema Current Visit: Yes Status: Acute Assessment and Plan: TTE pending Avoid IVF for now Patient with extensive alcohol hx and pedal edema r/o CMP vs amlodipine induced No congestion on CXR No hypoxia this time, continue to monitor (8) COPD (chronic obstructive pulmonary disease) Current Visit: Yes Status: Chronic Assessment and Plan: Not in exacerbation Duonebs prn CXR 01/31 IMPRESSION: 1. No acute cardiopulmonary process. 2. Emphysema. DVT Prophylaxis: hep SC - Time Spent with Patient Total time spent is greater than 50% in coordination of care (as documented) at patient's floor/unit and/or counseling patient: Internal Medicine: Result - Labs CBC & Chem 7: 02/01/18 03:01 02/01/18 03:01 Labs: Short CBC 02/01/18 Range/Units 03:01 WBC 9.8 (4.3-11.1) K/mcL Hgb 13.9 D (12.9-16.9) g/dL Hct 43.5 (37.5-50.1) % Plt Count 214 (140-400) K/mcL Neutrophils # 7.6 (1.6-8.9) K/mcL BMP 02/01/18 03:01 Sodium 144 Potassium 3.9 D Chloride 105 Carbon Dioxide 33 H BUN 18 Creatinine 0.71 Glucose 98 Calcium 9.1 Consult Discharge Plan - Plan Referrals: Mikala Sandra [Advanced Practice Nurse] - (1) Benzodiazepine withdrawal Qualifiers: Complication of substance-induced condition: uncomplicated Qualified Code(s) : F13.230 - Sedative, hypnotic or anxiolytic dependence with withdrawal, uncomplicated (2) Alcohol withdrawal syndrome Qualifiers: Complication of substance-induced condition: uncomplicated Qualified Code(s) : F10.230 - Alcohol dependence with withdrawal, uncomplicated (3) Depression Qualifiers: Depression Type: unspecified Qualified Code(s): F32.9 - Major depressive disorder, single episode, unspecified (5) Hypertension Qualifiers: Hypertension type: essential hypertension Qualified Code(s): I10 - Essential (primary) hypertension (8) COPD (chronic obstructive pulmonary disease) Qualifiers: COPD type: unspecified COPD Qualified Code(s): J44.9 - Chronic obstructive pulmonary disease, unspecified
[2018-02-01 14:08] LABS: Hepatitis B Surface Antigen Nonreactive (Nonreactive)
[2018-02-02] MEDS: *HR* Heparin 5,000 UNIT/ML VIAL SQ SCH ×3 (02:38→17:14)
[2018-02-02 03:56] LABS: Alanine Aminotransferase 112 Units/L (7-52); Albumin 3.2 g/dL (3.5-5.7); Albumin/Globulin Ratio 1.5 (1.1-2.2); Alkaline Phosphatase 39 Units/L (34-104); Aspartate Amino Transferase 53 Units/L (13-39); BUN/Creatinine Ratio 22 (6-26); Bilirubin,Total 0.2 mg/dL (0.3-1.0); Blood Urea Nitrogen 18 mg/dL (6-20); Calcium 8.7 mg/dL (8.6-10.3); Carbon Dioxide 36 mEq/L (23-29); Chloride 106 mEq/L (98-107); Globulin 2.1 g/dL (2.4-3.5); Glucose 93 mg/dL (70-105); Osmolality,Calculated 300 (280-300); Potassium 3.6 mEq/L (3.5-5.1); Sodium 144 mEq/L (136-145); Total Protein 5.3 g/dL (6.4-8.9); eGFR For Non-African Americans > 60 (> 60)
[2018-02-02] MEDS: *HR* LORazepam 2 MG/ML VIAL IVP PRN ×2 (05:14→13:32)
[2018-02-02] MEDS: OXYCODONE Oral CONC 10 MG/0.5 ML ORAL.SYG SL PRN ×2 (07:29→17:21)
[2018-02-02] MEDS: Thiamine (B-1) 100 MG TABLET PO SCH (07:47)
[2018-02-02] MEDS: Vitamin B Complex/Vit C/Vit E 1 EACH TABLET PO SCH (07:47)
[2018-02-02] MEDS: Folic Acid 1 MG TABLET PO SCH (07:47)
[2018-02-02] MEDS ORDERED: Perflutren Lipid Microsphere 1.3 ML in 0.9 % Sodium Chloride 8.7 ML IVP ONE (09:50)
--- NOTE | 2018-02-02 10:41 | Electrocardiograph Report ---
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
[2018-02-02 13:29] LABS: ABG Base Excess 8 mEq/L (-2 to 3); ABG HCO3 39 mEq/L (21-27); ABG Oxygen Saturation 92 % (95-98); ABG PCO2 86 mmHg (35-45); ABG PH 7.26 pH Units (7.32-7.45); ABG PO2 77 mmHg (85-104); ABG TCO2 42 mEq/L (20-26)
--- NOTE | 2018-02-02 13:58 | Internal Med Progress Note ---
Hospitalist Progress Note - Encounter Date of Encounter: 02/02/18 Time of Encounter: 13:55 - Subjective Interval History: Evaluated patient earlier today. At that time he was lying in bed. Comfortable. Somnolent but easily awoken answer questions appropriately. Denied any complaints. However at around 1 PM, while he was eating forward, his sats suddenly dropped. There was concern for aspiration. I evaluated the patient. He had bilateral wheezing. He was also having a lot of cough. He denied any chest pain. He was tachycardic. No fevers or chills reported. - Exam Vitals: Temp Pulse Resp BP Pulse Ox 99.7 F H 92 18 145/80 96 02/02/18 11:56 02/02/18 11:56 02/02/18 11:56 02/02/18 11:56 02/02/18 11:56 Exam: General: Patient is alert, moderate distress, oriented 3 Head: atraumatic, normocephalic, Chest: normal inspection, symmetric chest rise Respiratory: Shallow breaths. Bilateral wheezing. Tachypnea. Cardiovascular: Tachycardia, S1 and S2 normal. Abdomen: Abdomen is soft, nontender. Bowel sounds are present Musculoskeletal: Spontaneously moving all extremities Skin: warm, dry, intact. Neuro: Alert oriented x 3 normal cranial nerves, no focal deficits Psych: Patient's affect is anxious - Assessment and Plan (1) Acute respiratory failure with hypoxia and hypercapnia Current Visit: Yes Status: Acute Assessment and Plan: Patient developed acute respiratory failure this afternoon. Most likely from aspiration pneumonia with underlying COPD exacerbation. Awaiting chest x-ray results. Most likely patient will need to be started on IV antibiotics. Continue supplemental oxygen. Use BiPAP as needed. ABG reviewed. Patient does have decompensated respiratory acidosis. Check CBC, blood cultures. Treat underlying COPD. High risk for complications. (2) COPD (chronic obstructive pulmonary disease) Current Visit: Yes Status: Chronic Assessment and Plan: Patient with COPD. Suspected COPD exacerbation. Will start patient on steroids , scheduled bronchodilators. Continue O2 supplementation. (3) Benzodiazepine withdrawal Current Visit: Yes Status: Acute Assessment and Plan: Suspected benzodiazepine withdrawal with alcohol abuse. Will start patient on oral Librium and slowly taper it off. Minimize use of intravenous Ativan. (4) Substance abuse Current Visit: Yes Status: Chronic Assessment and Plan: Patient being monitor for symptoms of withdrawal. custom shop worker consult. (5) Depression Current Visit: Yes Status: Chronic Assessment and Plan: Denies any risk of harm to self or others. Follow-up outpatient with psychiatry. (6) Alcohol withdrawal syndrome Current Visit: Yes Status: Chronic Assessment and Plan: No recent alcohol use. Being managed per [facility] protocol for benzodiazepine withdrawal. (7) Hypertension Current Visit: Yes Status: Chronic Assessment and Plan: Blood pressure elevated. continue Coreg. We will increase dosage if blood pressure is persistently elevated (8) Hypokalemia Current Visit: Yes Status: Resolved (9) Pedal edema Current Visit: Yes Status: Acute Assessment and Plan: Mild and stable. Echocardiogram pending - Time Spent with Patient Total time spent is greater than 50% in coordination of care (as documented) at patient's floor/unit and/or counseling patient: Internal Medicine: Result - Labs CBC & Chem 7: 02/01/18 03:01 02/02/18 03:05 Labs: BMP 02/02/18 03:05 Sodium 144 Potassium 3.6 Chloride 106 Carbon Dioxide 36 H BUN 18 Creatinine 0.81 Glucose 93 Calcium 8.7 Liver Function 02/02/18 Range/Units 03:05 Total Bilirubin 0.2 L (0.3-1.0) mg/dL AST 53 H (13-39) Units/L ALT 112 H (7-52) Units/L Alkaline Phosphatase 39 (34-104) Units/L Albumin 3.2 L (3.5-5.7) g/dL - ABG Interpretation ABG results: ABG ABG pH 7.26 pH Units (7.32-7.45) L 02/02/18 13:24 ABG pCO2 86 mmHg (35-45) H* 02/02/18 13:24 ABG pO2 77 mmHg (85-104) L 02/02/18 13:24 ABG O2 Saturation 92 % (95-98) L 02/02/18 13:24 Consult Discharge Plan - Plan Referrals: Mikala Sandra [Advanced Practice Nurse] - (2) COPD (chronic obstructive pulmonary disease) Qualifiers: COPD type: COPD with acute exacerbation Qualified Code(s): J44.1 - Chronic obstructive pulmonary disease with (acute) exacerbation (3) Benzodiazepine withdrawal Qualifiers: Complication of substance-induced condition: uncomplicated Qualified Code(s) : F13.230 - Sedative, hypnotic or anxiolytic dependence with withdrawal, uncomplicated (5) Depression Qualifiers: Depression Type: unspecified Qualified Code(s): F32.9 - Major depressive disorder, single episode, unspecified (6) Alcohol withdrawal syndrome Qualifiers: Complication of substance-induced condition: uncomplicated Qualified Code(s) : F10.230 - Alcohol dependence with withdrawal, uncomplicated (7) Hypertension Qualifiers: Hypertension type: essential hypertension Qualified Code(s): I10 - Essential (primary) hypertension
[2018-02-02 15:20] LABS: Basophils % 0.3 %; Eosinophils # 0.2 K/mcL (0.0-0.6); Eosinophils % 1.4 %; Hematocrit 45.5 % (37.5-50.1); Hemoglobin 14.1 g/dL (12.9-16.9); Immature Granulocytes % 0.7 % (0-4); Lymphocytes # 3.2 K/mcL (0.6-4.6); Lymphocytes % 25.3 %; Mean Corpuscular Hemoglobin 31.8 pg (28.0-33.3); Mean Corpuscular Volume 102.5 fL (83.0-100.0); Mean Platelet Volume 10.5 fL (9.4-12.4); Monocytes # 0.8 K/mcL (0.0-1.3); Monocytes % 6.6 %; Neutrophils # 8.2 K/mcL (1.6-8.9); Platelet Count 166 K/mcL (140-400); Red Blood Count 4.44 M/mcL (4.19-5.50); Segmented Neutrophils % 65.7 %
[2018-02-02] MEDS: Ipratropium/Albuterol Neb 3 ML IH SCH ×2 (16:06→21:16)
[2018-02-02] MEDS: methylPREDNISolone 125 MG/2 ML VIAL IVP SCH (17:14)
[2018-02-03] MEDS: methylPREDNISolone 125 MG/2 ML VIAL IVP SCH ×2 (00:11→07:49)
[2018-02-03] MEDS: *HR* Heparin 5,000 UNIT/ML VIAL SQ SCH ×4 (00:11→23:30)
[2018-02-03] MEDS: OXYCODONE Oral CONC 10 MG/0.5 ML ORAL.SYG SL PRN ×3 (03:37→20:47)
[2018-02-03 04:22] LABS: Basophils % 0.1 %; Eosinophils % 0.1 %; Hematocrit 43.7 % (37.5-50.1); Hemoglobin 13.4 g/dL (12.9-16.9); Immature Granulocytes % 0.6 % (0-4); Lymphocytes # 0.8 K/mcL (0.6-4.6); Lymphocytes % 8.1 %; Mean Corpuscular HGB Conc 30.7 g/dL (31.6-35.5); Mean Corpuscular Hemoglobin 31.3 pg (28.0-33.3); Mean Corpuscular Volume 102.1 fL (83.0-100.0); Mean Platelet Volume 10.3 fL (9.4-12.4); Monocytes # 0.1 K/mcL (0.0-1.3); Monocytes % 0.7 %; Neutrophils # 8.7 K/mcL (1.6-8.9); Platelet Count 170 K/mcL (140-400); Red Blood Count 4.28 M/mcL (4.19-5.50); Red Cell Distribution Width 13.4 % (11.5-14.5); Segmented Neutrophils % 90.4 %
[2018-02-03] MEDS: Ipratropium/Albuterol Neb 3 ML IH SCH ×2 (04:32→09:32)
[2018-02-03 04:49] LABS: BUN/Creatinine Ratio 25 (6-26); Blood Urea Nitrogen 16 mg/dL (6-20); Calcium 8.9 mg/dL (8.6-10.3); Carbon Dioxide 36 mEq/L (23-29); Chloride 102 mEq/L (98-107); Glucose 154 mg/dL (70-105); Osmolality,Calculated 296 (280-300); Potassium 4.7 mEq/L (3.5-5.1); Sodium 141 mEq/L (136-145); eGFR For Non-African Americans > 60 (> 60)
[2018-02-03] MEDS: *HR* LORazepam 2 MG/ML VIAL IVP PRN (06:33)
[2018-02-03] MEDS: Thiamine (B-1) 100 MG TABLET PO SCH (07:48)
[2018-02-03] MEDS: Vitamin B Complex/Vit C/Vit E 1 EACH TABLET PO SCH (07:48)
[2018-02-03] MEDS: Folic Acid 1 MG TABLET PO SCH (07:48)
[2018-02-03] MEDS ORDERED: Ipratropium/Albuterol Neb 3 ML IH PRN (09:39)
[2018-02-03] MEDS ORDERED: Ipratropium/Albuterol Neb 3 ML IH SCH (10:00)
--- NOTE | 2018-02-03 12:30 | Internal Med Progress Note ---
Hospitalist Progress Note - Encounter Date of Encounter: 02/03/18 Time of Encounter: 10:15 - Subjective Interval History: Patient sitting up in bed. Doing better overall. Reports that his breathing is better. Has not had any worsening shortness of breath since yesterday afternoon. No chest pain. No palpitations. No episodes of fevers. Currently on nasal cannula at 3 L - Exam Vitals: Temp Pulse Resp BP Pulse Ox 98.0 F 88 20 125/78 93 02/03/18 06:50 02/03/18 10:00 02/03/18 10:00 02/03/18 06:50 02/03/18 10:00 Exam: General: Patient is alert, no acute distress, oriented x 3 Respiratory: Good respiratory effort. Normal breath sounds. Mild bilateral wheezing Cardiovascular: Regular rate and rhythm. s1 and s2 normal No clicks, rubs, gallops, or murmurs. No pedal edema Abdomen: Abdomen is soft, nontender. Bowel sounds are present Musculoskeletal: Spontaneously moving all extremities Skin: warm, dry, intact. Neuro: Alert oriented x 3 normal cranial nerves, no focal deficits - Assessment and Plan (1) Acute respiratory failure with hypoxia and hypercapnia Current Visit: Yes Status: Acute Assessment and Plan: Improved. Continue to wean FiO2 as tolerated. We will change bronchodilator nebs to as needed. (2) COPD (chronic obstructive pulmonary disease) Current Visit: Yes Status: Chronic Assessment and Plan: Improving. Transition to oral steroids. (3) Benzodiazepine withdrawal Current Visit: Yes Status: Acute Assessment and Plan: Stabilizing. We will begin to taper Librium dose. Minimize Ativan use. (4) Substance abuse Current Visit: Yes Status: Chronic Assessment and Plan: With alcohol abuse history. No signs of alcohol withdrawal at this time. (5) Depression Current Visit: Yes Status: Chronic Assessment and Plan: We will start treatment with Celexa. (6) Alcohol withdrawal syndrome Current Visit: Yes Status: Chronic Assessment and Plan: Continue supportive care. No signs of R, withdrawal today. Currently on CIWA protocol. (7) Hypertension Current Visit: Yes Status: Chronic Assessment and Plan: Well-controlled. Continue carvedilol (8) Hypokalemia Current Visit: Yes Status: Resolved (9) Pedal edema Current Visit: Yes Status: Acute Assessment and Plan: Echocardiogram shows mild left ventricle and diastolic dysfunction. EF is 60%. - Time Spent with Patient Total time spent is greater than 50% in coordination of care (as documented) at patient's floor/unit and/or counseling patient: Internal Medicine: Result - Labs CBC & Chem 7: 02/03/18 03:31 02/03/18 03:31 Labs: Short CBC 02/02/18 02/03/18 Range/Units 14:33 03:31 WBC 12.5 H 9.6 (4.3-11.1) K/mcL Hgb 14.1 13.4 (12.9-16.9) g/dL Hct 45.5 43.7 (37.5-50.1) % Plt Count 166 170 (140-400) K/mcL Neutrophils # 8.2 8.7 (1.6-8.9) K/mcL BMP 02/03/18 03:31 Sodium 141 Potassium 4.7 Chloride 102 Carbon Dioxide 36 H BUN 16 Creatinine 0.65 L Glucose 154 H Calcium 8.9 - ABG Interpretation ABG results: ABG ABG pH 7.26 pH Units (7.32-7.45) L 02/02/18 13:24 ABG pCO2 86 mmHg (35-45) H* 02/02/18 13:24 ABG pO2 77 mmHg (85-104) L 02/02/18 13:24 ABG O2 Saturation 92 % (95-98) L 02/02/18 13:24 - Impressions Impressions Echocardiogram 02/01/18 15:41 Impressions: LVEF 60%. Normal LV chamber size, wall thickness and function. Mild left ventricular diastolic dysfunction. Normal right ventricular structure and function. Unable to estimate RVSP due to lack of TR jet. Chest X-Ray 02/02/18 13:15 IMPRESSION: No acute abnormality identified. D/ / Zach Joshi MD / Zach Joshi MD Interpreting Provider: Zach Joshi MD Consult Discharge Plan - Plan Referrals: Mikala Sandra [Advanced Practice Nurse] - (2) COPD (chronic obstructive pulmonary disease) Qualifiers: COPD type: COPD with acute exacerbation Qualified Code(s): J44.1 - Chronic obstructive pulmonary disease with (acute) exacerbation (3) Benzodiazepine withdrawal Qualifiers: Complication of substance-induced condition: uncomplicated Qualified Code(s) : F13.230 - Sedative, hypnotic or anxiolytic dependence with withdrawal, uncomplicated (5) Depression Qualifiers: Depression Type: unspecified Qualified Code(s): F32.9 - Major depressive disorder, single episode, unspecified (6) Alcohol withdrawal syndrome Qualifiers: Complication of substance-induced condition: uncomplicated Qualified Code(s) : F10.230 - Alcohol dependence with withdrawal, uncomplicated (7) Hypertension Qualifiers: Hypertension type: essential hypertension Qualified Code(s): I10 - Essential (primary) hypertension
[2018-02-04] MEDS: OXYCODONE Oral CONC 10 MG/0.5 ML ORAL.SYG SL PRN ×3 (04:26→20:16)
[2018-02-04] MEDS: *HR* LORazepam 2 MG/ML VIAL IVP PRN (06:57)
[2018-02-04] MEDS: Ketorolac 15 MG/ML VIAL IVP PRN (07:45)
[2018-02-04] MEDS: Thiamine (B-1) 100 MG TABLET PO SCH (07:45)
[2018-02-04] MEDS: Folic Acid 1 MG TABLET PO SCH (07:45)
[2018-02-04] MEDS: Vitamin B Complex/Vit C/Vit E 1 EACH TABLET PO SCH (07:45)
[2018-02-04] MEDS: *HR* Heparin 5,000 UNIT/ML VIAL SQ SCH ×3 (07:45→23:06)
[2018-02-04] MEDS: predniSONE 20 MG TABLET PO SCH (07:45)
--- NOTE | 2018-02-04 11:09 | Internal Med Progress Note ---
Hospitalist Progress Note - Encounter Date of Encounter: 02/04/18 Time of Encounter: 09:50 - Subjective Interval History: Patient lying in bed. Comfortable. Answers questions appropriately but goes on to talk about his hospital stays where he has had issues with staff. He continues to have cough. Reports that he may have choked on his breakfast this morning even though it was chopped Soft diet. Denies any fevers or chills. No nausea or vomiting. No tremors. No hallucinations at this time - Exam Vitals: Temp Pulse Resp BP Pulse Ox 97.7 F 66 18 159/89 96 02/04/18 06:59 02/04/18 06:59 02/04/18 06:59 02/04/18 02:49 02/04/18 06:59 Exam: General: Patient is alert, no acute distress, oriented x 3 Respiratory: Minimal bilateral wheezing. Cardiovascular: Regular rate and rhythm. s1 and s2 normal No clicks, rubs, gallops, or murmurs. No pedal edema Abdomen: Abdomen is soft, nontender. Bowel sounds are present Musculoskeletal: Spontaneously moving all extremities Skin: warm, dry, intact. Neuro: Alert oriented x 3 normal cranial nerves, no focal deficits - Assessment and Plan (1) Acute respiratory failure with hypoxia and hypercapnia Current Visit: Yes Status: Acute Assessment and Plan: Continue O2 supplementation. Treat underlying COPD. (2) COPD (chronic obstructive pulmonary disease) Current Visit: Yes Status: Chronic Assessment and Plan: Clinically improving. Patient may have underlying microaspiration. Will consult speech therapy for evaluation. Bronchodilators as needed. Continue 5 day course of prednisone. (3) Benzodiazepine withdrawal Current Visit: Yes Status: Acute Assessment and Plan: Continue to taper Librium. Will stop Ativan completely. (4) Substance abuse Current Visit: Yes Status: Chronic Assessment and Plan: With alcohol . floorworker consult (5) Depression Current Visit: Yes Status: Chronic Assessment and Plan: Continue citalopram (6) Alcohol withdrawal syndrome Current Visit: Yes Status: Chronic Assessment and Plan: Not having any signs of withdrawal at this time. Will continue multivitamin supplements. Supportive care. (7) Hypertension Current Visit: Yes Status: Chronic Assessment and Plan: Blood pressure elevated. Will add Zestril (8) Hypokalemia Current Visit: Yes Status: Resolved (9) Pedal edema Current Visit: Yes Status: Acute Assessment and Plan: 2-D echocardiogram showed mild left frontal tumor diastolic dysfunction. Pedal limb edema has improved. DVT Prophylaxis: On subcutaneous heparin - Time Spent with Patient Total time spent is greater than 50% in coordination of care (as documented) at patient's floor/unit and/or counseling patient: Internal Medicine: Result - Labs CBC & Chem 7: 02/03/18 03:31 02/03/18 03:31 - ABG Interpretation ABG results: ABG ABG pH 7.26 pH Units (7.32-7.45) L 02/02/18 13:24 ABG pCO2 86 mmHg (35-45) H* 02/02/18 13:24 ABG pO2 77 mmHg (85-104) L 02/02/18 13:24 ABG O2 Saturation 92 % (95-98) L 02/02/18 13:24 Consult Discharge Plan - Plan Referrals: Mikala Sandra [Advanced Practice Nurse] - (2) COPD (chronic obstructive pulmonary disease) Qualifiers: COPD type: COPD with acute exacerbation Qualified Code(s): J44.1 - Chronic obstructive pulmonary disease with (acute) exacerbation (3) Benzodiazepine withdrawal Qualifiers: Complication of substance-induced condition: uncomplicated Qualified Code(s) : F13.230 - Sedative, hypnotic or anxiolytic dependence with withdrawal, uncomplicated (5) Depression Qualifiers: Depression Type: unspecified Qualified Code(s): F32.9 - Major depressive disorder, single episode, unspecified (6) Alcohol withdrawal syndrome Qualifiers: Complication of substance-induced condition: uncomplicated Qualified Code(s) : F10.230 - Alcohol dependence with withdrawal, uncomplicated (7) Hypertension Qualifiers: Hypertension type: essential hypertension Qualified Code(s): I10 - Essential (primary) hypertension
[2018-02-05 07:22] LABS: Bilirubin,Urine Negative (Negative); Blood,Urine Negative (Negative); Clarity,Urine Clear (Clear); Color,Urine Dark Yellow (Yellow); Glucose,Urine (UA) Normal (Normal); Ketones,Urine Negative (Negative); Leukocyte Esterase,Urine Negative (Negative); Nitrite,Urine Negative (Negative); Protein,Urine Negative (Neg-Trace); Specific Gravity,Urine > 1.030 (1.010-1.025); Urobilinogen,Urine Normal (Normal)
[2018-02-05 07:29] LABS: Amphetamine Screen,Urine Negative ng/mL (Cutoff=1000); Barbiturate Screen,Urine Negative ng/mL (Cutoff=200); Benzodiazepines Screen,Urine Positive ng/mL (Cutoff=300); Cannabinoid Screen,Urine Negative ng/mL (Cutoff = 50); Cocaine Screen,Urine Negative ng/mL (Cutoff= 300); Opiate Screen,Urine Negative ng/mL (Cutoff=300); Phencyclidine Screen,Urine Negative ng/mL (Cutoff=25)
[2018-02-05] MEDS: predniSONE 20 MG TABLET PO SCH (07:51)
[2018-02-05] MEDS: Folic Acid 1 MG TABLET PO SCH (07:51)
[2018-02-05] MEDS: Thiamine (B-1) 100 MG TABLET PO SCH (07:51)
[2018-02-05] MEDS: Vitamin B Complex/Vit C/Vit E 1 EACH TABLET PO SCH (07:52)
[2018-02-05] MEDS: *HR* Heparin 5,000 UNIT/ML VIAL SQ SCH ×2 (07:52→16:40)
[2018-02-05] MEDS: Ketorolac 15 MG/ML VIAL IVP PRN (07:58)
[2018-02-05] MEDS: OXYCODONE Oral CONC 10 MG/0.5 ML ORAL.SYG SL PRN (11:52)
--- NOTE | 2018-02-05 12:21 | Internal Med Progress Note ---
Hospitalist Progress Note - Encounter Date of Encounter: 02/05/18 Time of Encounter: 09:35 - Subjective Interval History: Patient is awake and alert. No new complaints at this time. Shortness of breath is improved. Does continue to have cough. Was evaluated by speech therapy yesterday and placed on a mechanically altered diet with alternating bites and sips. Advised to take small bites and sips. No fevers or chills reported overnight. Has been off Ativan for for 24 hours. - Exam Vitals: Temp Pulse Resp BP Pulse Ox 98.1 F 86 18 140/89 96 02/05/18 11:20 02/05/18 11:20 02/05/18 11:20 02/05/18 11:20 02/05/18 11:20 Exam: General: Patient is alert, no acute distress, oriented x 3 Respiratory: Bilateral end expiratory wheezing Cardiovascular: Regular rate and rhythm. s1 and s2 normal No clicks, rubs, gallops, or murmurs. No pedal edema Abdomen: Abdomen is soft, nontender. Bowel sounds are present Musculoskeletal: Spontaneously moving all extremities Skin: warm, dry, intact. Neuro: Alert oriented x 3 normal cranial nerves, no focal deficits - Assessment and Plan (1) Acute respiratory failure with hypoxia and hypercapnia Current Visit: Yes Status: Acute Assessment and Plan: Improving. Currently on room air. (2) COPD (chronic obstructive pulmonary disease) Current Visit: Yes Status: Chronic Assessment and Plan: We will continue to taper steroids. Continue bronchodilators as needed. (3) Benzodiazepine withdrawal Current Visit: Yes Status: Acute Assessment and Plan: We will continue to taper Librium. Stop after morning dose. (4) Substance abuse Current Visit: Yes Status: Chronic Assessment and Plan: Treating for benzodiazepine withdrawal. (5) Depression Current Visit: Yes Status: Chronic Assessment and Plan: Started on citalopram (6) Alcohol withdrawal syndrome Current Visit: Yes Status: Chronic Assessment and Plan: No signs of withdrawal at this time. Will continue supportive care with multivitamins. Patient willing to consider placement to skilled rehabilitation for recovery. 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 We will try to make arrangements for patient to go to skilled rehabilitation (7) Hypertension Current Visit: Yes Status: Chronic Assessment and Plan: Blood pressure elevated this morning. We will continue to monitor. Continue lisinopril, Coreg. We will increase lisinopril dosage to 10 mg daily. (8) Hypokalemia Current Visit: Yes Status: Resolved (9) Pedal edema Current Visit: Yes Status: Acute Assessment and Plan: Improved. - Time Spent with Patient Total time spent is greater than 50% in coordination of care (as documented) at patient's floor/unit and/or counseling patient: Internal Medicine: Result - Labs CBC & Chem 7: 02/03/18 03:31 02/03/18 03:31 Labs: Urine 02/05/18 Range/Units 00:00 Urine Color Dark Yellow (Yellow) Urine Clarity Clear (Clear) Urine pH 6.0 (5.0-8.0) pH Units Ur Specific Mcintosh > 1.030 H (1.010-1.025) Urine Protein Negative (Neg-Trace) mg/dL Urine Glucose (UA) Normal (Normal) mg/dL - ABG Interpretation ABG results: ABG ABG pH 7.26 pH Units (7.32-7.45) L 02/02/18 13:24 ABG pCO2 86 mmHg (35-45) H* 02/02/18 13:24 ABG pO2 77 mmHg (85-104) L 02/02/18 13:24 ABG O2 Saturation 92 % (95-98) L 02/02/18 13:24 Consult Discharge Plan - Plan Referrals: Mikala Sandra [Advanced Practice Nurse] - (2) COPD (chronic obstructive pulmonary disease) Qualifiers: COPD type: COPD with acute exacerbation Qualified Code(s): J44.1 - Chronic obstructive pulmonary disease with (acute) exacerbation (3) Benzodiazepine withdrawal Qualifiers: Complication of substance-induced condition: uncomplicated Qualified Code(s) : F13.230 - Sedative, hypnotic or anxiolytic dependence with withdrawal, uncomplicated (5) Depression Qualifiers: Depression Type: unspecified Qualified Code(s): F32.9 - Major depressive disorder, single episode, unspecified (6) Alcohol withdrawal syndrome Qualifiers: Complication of substance-induced condition: uncomplicated Qualified Code(s) : F10.230 - Alcohol dependence with withdrawal, uncomplicated (7) Hypertension Qualifiers: Hypertension type: essential hypertension Qualified Code(s): I10 - Essential (primary) hypertension
--- NOTE | 2018-02-05 13:29 | Discharge Summary ---
- NOTES TO OUTPATIENT PROVIDER Notes to Outpatient Provider: Patient with a history of alcohol abuse was hospitalized here with concerns for withdrawal from benzodiazepines. He had been previously hospitalized for 10 days to the left the hospital AGAINST MEDICAL ADVICE the previous day. He had been treated for delirium tremens. Patient was monitored in the stepdown unit closely and treated for possible benzodiazepine withdrawal. He was placed on Librium and slowly tapered off it. He did develop COPD exacerbation and possible aspiration. He was treated for these conditions with bronchodilators. Speech therapy was also consulted and his diet has been adjusted per their recommendations. Presently patient is doing better overall. He is stable to be discharged. He his finally agreed to go to a rehabilitation for recovery. This is being arranged and patient will be discharged from the hospital when he has been accepted at a facility. Orders not resulted at time of discharge: Pending orders 02/02/18 14:33 Culture,Blood [BC] Stat Date of Encounter: 02/05/18 Time of Encounter: 13:27 - Discharge Diagnosis (1) Benzodiazepine withdrawal Priority: Primary Status: Acute Qualifiers: Complication of substance-induced condition: uncomplicated Qualified Code(s ): F13.230 - Sedative, hypnotic or anxiolytic dependence with withdrawal, uncomplicated (2) Acute respiratory failure with hypoxia and hypercapnia Priority: Secondary Status: Acute (3) COPD (chronic obstructive pulmonary disease) Priority: Secondary Status: Chronic Qualifiers: COPD type: COPD with acute exacerbation Qualified Code(s): J44.1 - Chronic obstructive pulmonary disease with (acute) exacerbation (4) Substance abuse Priority: Secondary Status: Chronic (5) Depression Priority: Secondary Status: Chronic Qualifiers: Depression Type: unspecified Qualified Code(s): F32.9 - Major depressive disorder, single episode, unspecified (6) Alcohol withdrawal syndrome Priority: Secondary Status: Chronic Qualifiers: Complication of substance-induced condition: uncomplicated Qualified Code(s ): F10.230 - Alcohol dependence with withdrawal, uncomplicated (7) Hypertension Priority: Secondary Status: Chronic Qualifiers: Hypertension type: essential hypertension Qualified Code(s): I10 - Essential (primary) hypertension (8) Hypokalemia Priority: Secondary Status: Resolved (9) Pedal edema Priority: Secondary Status: Acute Hospital course: Mr. Martínez is a 57 year old male Patient with a history of alcohol abuse was hospitalized here with concerns for withdrawal from benzodiazepines. He had been previously hospitalized for 10 days to the left the hospital AGAINST MEDICAL ADVICE the previous day. He had been treated for delirium tremens. Patient was monitored in the stepdown unit closely and treated for possible benzodiazepine withdrawal. He was placed on Librium and slowly tapered off it. He did develop COPD exacerbation and possible aspiration. He was treated for these conditions with bronchodilators. Speech therapy was also consulted and his diet has been adjusted per their recommendations. Presently patient is doing better overall. He is stable to be discharged. He his finally agreed to go to a rehabilitation for recovery. This is being arranged and patient will be discharged from the hospital when he has been accepted at a facility. Patient has been hypertensive here and has been placed on lisinopril and carvedilol. He has also been placed on citalopram for depression. Discharge discussed with: patient, nurse, social work, case management - Time Spent with Patient Total time spent providing and/or coordinating discharge services: Greater than 30 minutes (45 min) - Discharge Medications Prescriptions: Ipratropium/Albuterol Neb [Duoneb] 3 ml IH [id number] PRN #30 inhsol PRN Reason: Shortness Of Breath/Wheezing Acetaminophen [Tylenol 8 Hour] 650 mg PO Q6H PRN #30 tablet.er PRN Reason: Mild Pain Budesonide/Formoterol 80/4.5 [Symbicort 80/4.5] 2 puff IH BID #1 hfa.aer.ad Carvedilol 3.125 mg PO BID #60 tab Citalopram [CeleXA] 20 mg PO DAILY #30 tablet Lisinopril [Zestril] 10 mg PO DAILY #30 tablet Oxycodone HCl/Acetaminophen [Percocet 5-325 mg Tablet] 1 each PO Q8H PRN 5 Days #10 tablet PRN Reason: Severe Pain predniSONE [PredniSONE] 40 mg PO DAILY 3 Days #6 tablet Vits96/Iron Fum/Folic [ Tablet] 1 each PO DAILY #30 tablet Home Medications: Acetaminophen [Tylenol 8 Hour] 650 mg PO Q6H PRN #30 tablet.er 02/05/18 [Rx] Budesonide/Formoterol 80/4.5 [Symbicort 80/4.5] 2 puff IH BID #1 hfa.aer.ad [Rx] Carvedilol 3.125 mg PO BID #60 tab 02/05/18 [Rx] Citalopram [CeleXA] 20 mg PO DAILY #30 tablet 02/05/18 [Rx] Ipratropium/Albuterol Neb [Duoneb] 3 ml IH [id number] PRN #30 inhsol 02/05/18 [Rx] Lisinopril [Zestril] 10 mg PO DAILY #30 tablet 02/05/18 [Rx] Oxycodone HCl/Acetaminophen [Percocet 5-325 mg Tablet] 1 each PO Q8H PRN 5 Days #10 tablet 02/05/18 [Rx] Vits96/Iron Fum/Folic [ Tablet] 1 each PO DAILY #30 tablet [Rx] predniSONE [PredniSONE] 40 mg PO DAILY 3 Days #6 tablet 02/05/18 [Rx] Allergies/Adverse Reactions: 3 Allergy/AdvReac Type Severity Reaction Status Date / Time No Known Allergies Allergy Verified 01/31/18 12:05 Date of admission: 01/31/18 12:29 Primary care physician: PCP NONE Consults: 01/31/18 13:34 Consult to Progress Man [CONS] Routine Reason for SW Consult: Alcohol abuse 02/04/18 10:03 Consult to Speech Therapy [CONS] Routine Comment: Evaluate, develop and implement POC Reason for Consult: Concern for recurrent aspiration Call Completed: No Discharging clinician: Jc Sanchez Anticipated date of discharge: 02/05/18 - Constitutional Vitals: Temp Pulse Resp BP Pulse Ox 98.1 F 86 18 140/89 96 02/05/18 11:20 02/05/18 11:20 02/05/18 11:20 02/05/18 11:20 02/05/18 11:20 General appearance: Present: cooperative, A&O X 3, answers questions appropriately Exam: . - Respiratory Respiratory exam: Present: prolonged expiratory phase, wheezes. Absent: accessory muscle use, rales, rhonchi - Cardiovascular Cardiovascular exam: Present: RRR, +S1, +S2. Absent: diastolic murmur, gallop, rubs, systolic murmur - GI/Abdominal GI/Abdominal exam: Present: normal bowel sounds, soft, no peritoneal signs. Absent: distended, tenderness - Patient Status Disposition: Transfer SNF Condition: Good Functional capacity at discharge: uses cane/walker Overall status at discharge: patient is progressing back to baseline - Discharge Instructions Instructions: Acute Respiratory Distress Syndrome (DC) Follow Up With: Mikala Sandra [Advanced Practice Nurse] - 02/14/18 10:00 am - Diet and Activity Activity: as per physical therapy, increase activity as tolerated Diet: low fat, low cholesterol, low salt diet
--- NOTE | 2018-02-05 13:41 | Physician Discharge Referral ---
ExtendedCare Referral Info Provider in Charge after Transfer: PCP Institutional Level of Care: Skilled - Diagnosis (1) Benzodiazepine withdrawal Priority: Primary Status: Acute (2) Acute respiratory failure with hypoxia and hypercapnia Priority: Secondary Status: Acute (3) COPD (chronic obstructive pulmonary disease) Priority: Secondary Status: Chronic (4) Substance abuse Priority: Secondary Status: Chronic (5) Depression Priority: Secondary Status: Chronic (6) Alcohol withdrawal syndrome Priority: Secondary Status: Chronic (7) Hypertension Priority: Secondary Status: Chronic (8) Hypokalemia Priority: Secondary Status: Resolved (9) Pedal edema Priority: Secondary Status: Acute Prognosis: Fair Aware of Diagnosis: Patient Aware of Prognosis: Patient - Transfer Medications Prescriptions: Ipratropium/Albuterol Neb [Duoneb] 3 ml IH [id number] PRN #30 inhsol PRN Reason: Shortness Of Breath/Wheezing Acetaminophen [Tylenol 8 Hour] 650 mg PO Q6H PRN #30 tablet.er PRN Reason: Mild Pain Budesonide/Formoterol 80/4.5 [Symbicort 80/4.5] 2 puff IH BID #1 hfa.aer.ad Carvedilol 3.125 mg PO BID #60 tab Citalopram [CeleXA] 20 mg PO DAILY #30 tablet Lisinopril [Zestril] 10 mg PO DAILY #30 tablet Oxycodone HCl/Acetaminophen [Percocet 5-325 mg Tablet] 1 each PO Q8H PRN 5 Days #10 tablet PRN Reason: Severe Pain predniSONE [PredniSONE] 40 mg PO DAILY 3 Days #6 tablet Vits96/Iron Fum/Folic [ Tablet] 1 each PO DAILY #30 tablet Home Medications: Acetaminophen [Tylenol 8 Hour] 650 mg PO Q6H PRN #30 tablet.er 02/05/18 [Rx] Budesonide/Formoterol 80/4.5 [Symbicort 80/4.5] 2 puff IH BID #1 hfa.aer.ad [Rx] Carvedilol 3.125 mg PO BID #60 tab 02/05/18 [Rx] Citalopram [CeleXA] 20 mg PO DAILY #30 tablet 02/05/18 [Rx] Ipratropium/Albuterol Neb [Duoneb] 3 ml IH [id number] PRN #30 inhsol 02/05/18 [Rx] Lisinopril [Zestril] 10 mg PO DAILY #30 tablet 02/05/18 [Rx] Oxycodone HCl/Acetaminophen [Percocet 5-325 mg Tablet] 1 each PO Q8H PRN 5 Days #10 tablet 02/05/18 [Rx] Vits96/Iron Fum/Folic [ Tablet] 1 each PO DAILY #30 tablet [Rx] predniSONE [PredniSONE] 40 mg PO DAILY 3 Days #6 tablet 02/05/18 [Rx] Allergies/Adverse Reactions: 3 Allergy/AdvReac Type Severity Reaction Status Date / Time No Known Allergies Allergy Verified 01/31/18 12:05 - Respiratory Orders Oxygen / L per min (Keep sats > 90%) Smoking Cessation: Smoking cessation has been advised. For more information, call the [place] Tobacco Quit Line at 0-389-RNTD-NOW. - Advance Directives Code Status: Full Code - Mobility Orders Ambulate (per PT) - Rehabiliation Orders Rehab Potential: Fair Rehab Orders: Evaluation for Physical Therapy, Evaluation for Occupational Therapy - Diet Orders Mechanical Soft (Mechanically altered diet with alternating bites and sips strategy, upright 90 degrees for intake, slow rate of intake, and small bites and sips) CERTIFICATION: I certify that the transfer of the above named patient to an Extended Care Facility is necessary for the continuing treatment of the diagnosis listed. The above information is true and accurate reflection of patient's current condition. Confidential - Redisclosure prohibited without a patient's written consent.
[2018-02-05 16:10] VITALS: BP 109/75
== END 2018-02-05 19:05 | DRG 896 ==
LOC: EMEROOARM 09:55 → SUATTDRO 12:29 → 3BNU 12:29 → 2NNU 13:17
PROVIDERS: ADMIT Internal Medicine; ATTEND Internal Medicine

== ENCOUNTER 2018-07-27 00:07 | Inpatient (IN) ==
[2018-07-27] MEDS ORDERED: Ipratropium/Albuterol Neb 3 ML IH ONE (00:15)
[2018-07-27] MEDS ORDERED: methylPREDNISolone 125 MG/2 ML VIAL IVP ONE (00:15)
--- NOTE | 2018-07-27 00:26 | Emergency Department Note ---
Disposition Clinical Impression: Acute exacerbation of chronic obstructive airways disease, Acute respiratory failure with hypoxia and hypercapnia, Alcohol abuse Disposition: Admitted As Inpatient Condition: Critical Referrals: NONE,PCP [Primary Care Provider] - Forms: ED Satisfaction Letter Time of Disposition: 02:19 SOB HPI - General Chief Complaint: ED Shortness of Breath/Dyspnea Stated Complaint: MIGUELITO Time Seen by Provider: 07/27/18 00:15 Source: EMS Mode of arrival: EMS Limitations: no limitations Nursing Notes Reviewed: Yes Vital Signs Reviewed: Yes - History of Present Illness 57-year-old male with history of COPD arrives to the emergency department in severe respiratory distress. The patient arrives to the emergency department tripoding and unable to sit down secondary to the difficulty breathing. States that this started earlier today but he has felt congested the past few days. States he has Hx of COPD but never intubated. Denies chest pain, fevers, chills, abdominal pain. - Related Data Previous Rx's Medication Instructions Recorded Acetaminophen [Tylenol 8 Hour] 650 mg PO Q6H PRN #30 tablet.er 02/05/18 Budesonide/Formoterol 80/4.5 2 puff IH BID #1 hfa.aer.ad 02/05/18 [Symbicort 80/4.5] Carvedilol 3.125 mg PO BID #60 tab 02/05/18 Citalopram [CeleXA] 20 mg PO DAILY #30 tablet 02/05/18 Ipratropium/Albuterol Neb [Duoneb] 3 ml IH [id number] PRN #30 inhsol 02/05/18 Lisinopril [Zestril] 10 mg PO DAILY #30 tablet 02/05/18 Oxycodone HCl/Acetaminophen 1 each PO Q8H PRN 5 Days #10 tablet 02/05/18 [Percocet 5-325 mg Tablet] Vits96/Iron Fum/Folic 1 each PO DAILY #30 tablet 02/05/18 [ Tablet] predniSONE [PredniSONE] 40 mg PO DAILY 3 Days #6 tablet 02/05/18 Allergies Allergy/AdvReac Type Severity Reaction Status Date / Time No Known Allergies Allergy Verified 01/31/18 12:05 All systems ED: reviewed and negative except as stated. Constitutional: Denies: fever, chills, weakness ENT ED: Denies: dysphagia Cardiovascular: Reports: dyspnea on exertion. Denies: chest pain, orthopnea, edema, syncope Respiratory: Reports: cough, dyspnea, wheezes, sputum production. Denies: hemoptysis Gastrointestinal: Denies: abdominal pain, nausea, vomiting Genitourinary: Denies: urgency, dysuria Musculoskeletal: Denies: back pain Integumentary: Denies: rash Neurological: Denies: headache, confusion Past Medical History - Past Medical History Attestation: Yes The following information was validated with the patient. Source: patient, old records reviewed Medical history: Reports: COPD Surgical history: Reports: orthopedic, other Psychiatric history: Reports: other - Social History Smoking Status: Light tobacco smoker Smokeless Tobacco Status: No Alcohol use: Reports: heavy, recent Drug use: Reports: prescription drug abuse Physical Exam - General Limitations: no limitations General appearance: alert, anxious, in distress (severe respiratory distress) - Head Head exam: atraumatic, normocephalic, normal inspection - Eye Eye exam: Present: normal appearance, PERRL, EOMI - ENT ENT exam: normal exam - Neck Neck exam: Present: normal inspection - Chest Chest inspection: Present: normal inspection, symmetric chest wall rise - Respiratory Respiratory exam: Present: respiratory distress, wheezes, other (poor air movement) - Cardiovascular Cardiovascular exam: Present: normal rhythm, tachycardia, normal heart sounds - Abdominal Exam Abdominal exam: Present: soft, Non-Tender. Absent: tenderness, distention, guarding, rebound, rigidity - Extremities Exam Extremities exam: Present: normal inspection, full ROM, normal capillary refill. Absent: tenderness, pedal edema - Neurological Exam Neurological exam: Present: alert, oriented X3 - Skin Skin exam: Present: warm, dry, intact, normal color Course Vital Signs Temperature 98.0 F 07/27/18 00:10 Pulse Rate 160 07/27/18 00:10 Respiratory Rate 30 07/27/18 00:10 Blood Pressure 210/120 07/27/18 00:10 O2 Sat by Pulse Oximetry 96 07/27/18 00:10 Temperature 98.0 F 07/27/18 00:10 Pulse Rate 143 07/27/18 01:35 Respiratory Rate 20 07/27/18 01:16 Blood Pressure 120/87 07/27/18 01:35 O2 Sat by Pulse Oximetry 99 07/27/18 01:30 Oxygen Delivery Oxygen Delivery Non Rebreather Mask Procedures - Intubation Time out performed: No sedative: Etomidate Mg Given: 20 paralytic: Rocuronium Mg Given: 75 Laryngoscope: Jerrell ET Tube Size: 7.5 ET Tube Uncuffed: No Tube Secured Depth (cm): 21 Tube Secured Location: lips Tube Placement Confirmation: visualized tube passing through cords, equal breath sounds bilaterally, no breath sounds over epigastrium, confirmation by capnometry Patient Tolerated Procedure: well, no complications Intubation Complications: difficult intubation Shortness of Breath/Dyspnea - [facility] Narrative Medical decision making narrative: Patient evaluation in the ED consistent with a COPD exacerbation. The patient had received multiple doses of albuterol and DuoNeb's prior to arrival to the emergency department. Patient was tachycardic in respiratory distress his entire visit. Patient was noted to be hypertensive as well. Patient was given multiple doses and continued to remain in respiratory distress. He never became hypoxic but given the extensive respiratory distress the patient was experiencing, the patient was given 2 different doses of 0.5 mg IV Ativan. After multiple doses multiple attempts the patient continued to experience worsening respiratory distress. At that time we elected to intubate the patient emergently. Patient was intubated and placed on the ventilator using our does not protocol. Please place a propofol drip as well as a fentanyl drip. Patient's chest x-ray was obtained and lab work began to return. The patient does have an elevated 0.05 troponin. This is likely reactionary to the tachycardia. The patient's heart rate was noted to go into the 180s at that time. Continued with bilateral breath sounds and ease of the patient to ventilate, felt as though this is likely cardiac in nature secondary likely to the beta agonist the patient had received. The patient subsequently received 2 subsequent doses of Adenocard. No cardioversion was noted but the patient's heart rate slowed down slightly. At that time we elected to perform an injection of Lopressor. He was given 10 mg IV Lopressor. Patient's heart rate has begun to normalize into the 130s and his blood pressure is stabilized in the 120 systolic. The patient regained intubated at this time. Given the patient's extensive history of alcohol abuse and COPD this is likely contributing to the patient's symptoms. The patient will be admitted to the hospitalist at this time for further observation, workup and care. - Lab Data Lab results reviewed: Yes I reviewed the patient's lab results. Result diagrams: 07/27/18 00:17 07/27/18 00:17 Lab Results 07/27/18 07/27/18 07/27/18 Range/Units 00:17 00:17 01:33 WBC 12.6 H (4.3-11.1) K/mcL RBC 4.83 (4.19-5.50) M/mcL Hgb 15.4 (12.9-16.9) g/dL Hct 45.4 (37.5-50.1) % MCV 94.0 (83.0-100.0) fL MCH 31.9 (28.0-33.3) pg MCHC 33.9 (31.6-35.5) g/dL RDW 12.5 (11.5-14.5) % Plt Count 200 (140-400) K/mcL MPV 9.8 (9.4-12.4) fL Immature Gran % 0.4 (0-4) % Seg Neutrophils % 74.4 % Lymphocytes % 17.0 % Monocytes % 7.2 % Eosinophils % 0.6 % Basophils % 0.4 % Neutrophils # 9.4 H (1.6-8.9) K/mcL Lymphocytes # 2.1 (0.6-4.6) K/mcL Monocytes # 0.9 (0.0-1.3) K/mcL Eosinophils # 0.1 (0.0-0.6) K/mcL Basophils # 0.1 (0.0-0.2) K/mcL ABG pH 7.39 (7.32-7.45) pH Units ABG pCO2 42 (35-45) mmHg ABG pO2 586 H (85-104) mmHg ABG HCO3 26 (21-27) mEq/L ABG Total CO2 27 H (20-26) mEq/L ABG O2 Saturation 100 H (95-98) % ABG Base Excess 1 (-2 to 3) mEq/L Respiration Rate 20 O2 Delivery Device ET Tube Blood Gas Modality ASSIST CONTROL Inspired O2 100.0 (1-15=lpm [id number]=%) Tidal Volume 400 cc PEEP 5 cm H2O Sodium 130 L (136-145) mEq/L Potassium 3.9 (3.5-5.1) mEq/L Chloride 92 L (98-107) mEq/L Carbon Dioxide 23 (23-29) mEq/L BUN 5 L (6-20) mg/dL Creatinine 0.59 L (0.70-1.30) mg/dL Est GFR ( Amer) > 60 (> 60) Est GFR (Non-Af Amer) > 60 (> 60) BUN/Creatinine Ratio 8 (6-26) Glucose 111 H (70-105) mg/dL Calculated Osmolality 268 L (280-300) Calcium 8.8 (8.6-10.3) mg/dL Troponin I 0.05 H* (< 0.04) ng/mL - EKG Data EKG attestation: Yes I reviewed and interpreted this EKG. EKG results narrative: Heart rate 155 beats for minute. Sinus tachycardia. No ST elevation or ST depression noted. No acute changes noted. Large amount of artifact to completely assess EKG is difficult.
[2018-07-27] MEDS ORDERED: *HR* LORazepam 2 MG/ML VIAL IVP ONE (00:27)
[2018-07-27 00:53] LABS: Basophils # 0.1 K/mcL (0.0-0.2); Basophils % 0.4 %; Eosinophils # 0.1 K/mcL (0.0-0.6); Eosinophils % 0.6 %; Hematocrit 45.4 % (37.5-50.1); Hemoglobin 15.4 g/dL (12.9-16.9); Immature Granulocytes % 0.4 % (0-4); Lymphocytes # 2.1 K/mcL (0.6-4.6); Mean Corpuscular HGB Conc 33.9 g/dL (31.6-35.5); Mean Corpuscular Hemoglobin 31.9 pg (28.0-33.3); Mean Platelet Volume 9.8 fL (9.4-12.4); Monocytes # 0.9 K/mcL (0.0-1.3); Monocytes % 7.2 %; Neutrophils # 9.4 K/mcL (1.6-8.9); Platelet Count 200 K/mcL (140-400); Red Blood Count 4.83 M/mcL (4.19-5.50); Red Cell Distribution Width 12.5 % (11.5-14.5); Segmented Neutrophils % 74.4 %
[2018-07-27 00:56] LABS: BUN/Creatinine Ratio 8 (6-26); Blood Urea Nitrogen 5 mg/dL (6-20); Calcium 8.8 mg/dL (8.6-10.3); Carbon Dioxide 23 mEq/L (23-29); Chloride 92 mEq/L (98-107); Glucose 111 mg/dL (70-105); Osmolality,Calculated 268 (280-300); Potassium 3.9 mEq/L (3.5-5.1); Sodium 130 mEq/L (136-145); eGFR For Non-African Americans > 60 (> 60)
[2018-07-27 01:05] LABS: Troponin I 0.05 ng/mL (< 0.04)
[2018-07-27] MEDS ORDERED: Propofol 500 MG/50 ML INFUS..BTL ONE (01:06)
[2018-07-27] MEDS ORDERED: 0.9 % Sodium Chloride 1,000 ML ONE (01:09)
[2018-07-27] MEDS ORDERED: *HR* Adenosine 6 MG/2 ML VIAL IVP ONE ×2 (01:13→01:14)
[2018-07-27] MEDS ORDERED: *HR* Metoprolol 5 MG/5 ML VIAL IVP ONE (01:22)
[2018-07-27 01:38] LABS: ABG Base Excess 1 mEq/L (-2 to 3); ABG HCO3 26 mEq/L (21-27); ABG Oxygen Saturation 100 % (95-98); ABG PCO2 42 mmHg (35-45); ABG PH 7.39 pH Units (7.32-7.45); ABG PO2 586 mmHg (85-104); ABG TCO2 27 mEq/L (20-26); Blood Gas Modality ASSIST CONTROL; Blood Gas PEEP 5 cm H2O; Blood Gas Respiration Rate 20; Blood Gas VT 400 cc
[2018-07-27] MEDS ORDERED: *HR* Enoxaparin 60 MG/0.6 ML SYRINGE SQ STA (01:38)
[2018-07-27] MEDS: FentaNYL (PF) 1,000 MCG in 0.9 % Sodium Chloride 80 ML IVC SCH ×4 (01:40→20:07)
[2018-07-27] MEDS ORDERED: Dexmedetomidine HCl 400 MCG/100 ML MLS IVC ONE (02:21)
--- NOTE | 2018-07-27 02:27 | Emergency Department Note ---
Disposition Clinical Impression: Acute exacerbation of chronic obstructive airways disease, Acute respiratory failure with hypoxia and hypercapnia, Alcohol abuse Disposition: Admitted As Inpatient Condition: Critical General Adult HPI - General Chief complaint: ED Shortness of Breath/Dyspnea Stated complaint: MIGUELITO Time Seen by Provider: 07/27/18 00:15 Source: EMS Mode of arrival: EMS Limitations: no limitations Nursing Notes Reviewed: Yes Vital Signs Reviewed: Yes - History of Present Illness Pain Scale: 0 - Related Data Previous Rx's Medication Instructions Recorded Acetaminophen [Tylenol 8 Hour] 650 mg PO Q6H PRN #30 tablet.er 02/05/18 Budesonide/Formoterol 80/4.5 2 puff IH BID #1 hfa.aer.ad 02/05/18 [Symbicort 80/4.5] Carvedilol 3.125 mg PO BID #60 tab 02/05/18 Citalopram [CeleXA] 20 mg PO DAILY #30 tablet 02/05/18 Ipratropium/Albuterol Neb [Duoneb] 3 ml IH [id number] PRN #30 inhsol 02/05/18 Lisinopril [Zestril] 10 mg PO DAILY #30 tablet 02/05/18 Oxycodone HCl/Acetaminophen 1 each PO Q8H PRN 5 Days #10 tablet 02/05/18 [Percocet 5-325 mg Tablet] Vits96/Iron Fum/Folic 1 each PO DAILY #30 tablet 02/05/18 [ Tablet] predniSONE [PredniSONE] 40 mg PO DAILY 3 Days #6 tablet 02/05/18 Allergies Allergy/AdvReac Type Severity Reaction Status Date / Time No Known Allergies Allergy Verified 01/31/18 12:05 Constitutional: Denies: fever, chills, weakness ENT ED: Denies: dysphagia Cardiovascular: Reports: dyspnea on exertion. Denies: chest pain, orthopnea, edema, syncope Respiratory: Reports: cough, dyspnea, wheezes, sputum production. Denies: hemoptysis Gastrointestinal: Denies: abdominal pain, nausea, vomiting Genitourinary: Denies: urgency, dysuria Musculoskeletal: Denies: back pain Integumentary: Denies: rash Neurological: Denies: headache, confusion Past Medical History - Past Medical History Medical history: Reports: COPD Surgical history: Reports: orthopedic, other Psychiatric history: Reports: other - Social History Smoking Status: Light tobacco smoker Smokeless Tobacco Status: No Alcohol use: Reports: heavy, recent Drug use: Reports: prescription drug abuse Physical Exam - General Limitations: no limitations General appearance: alert, anxious, in distress (severe respiratory distress) Course Vital Signs Temperature 98.0 F 07/27/18 00:10 Pulse Rate 160 07/27/18 00:10 Respiratory Rate 30 07/27/18 00:10 Blood Pressure 210/120 07/27/18 00:10 O2 Sat by Pulse Oximetry 96 07/27/18 00:10 Temperature 98.0 F 07/27/18 00:10 Pulse Rate 143 07/27/18 01:35 Respiratory Rate 20 07/27/18 01:16 Blood Pressure 120/87 07/27/18 01:35 O2 Sat by Pulse Oximetry 99 07/27/18 01:30 Oxygen Delivery Oxygen Delivery Non Rebreather Mask Medical Decision Making - Medical Records Medical records reviewed: Yes I reviewed the patient's medical records. - Lab Data Lab results reviewed: Yes I reviewed the patient's lab results. Result diagrams: 07/27/18 00:17 07/27/18 00:17 Lab Results 07/27/18 07/27/18 07/27/18 Range/Units 00:17 00:17 01:33 WBC 12.6 H (4.3-11.1) K/mcL RBC 4.83 (4.19-5.50) M/mcL Hgb 15.4 (12.9-16.9) g/dL Hct 45.4 (37.5-50.1) % MCV 94.0 (83.0-100.0) fL MCH 31.9 (28.0-33.3) pg MCHC 33.9 (31.6-35.5) g/dL RDW 12.5 (11.5-14.5) % Plt Count 200 (140-400) K/mcL MPV 9.8 (9.4-12.4) fL Immature Gran % 0.4 (0-4) % Seg Neutrophils % 74.4 % Lymphocytes % 17.0 % Monocytes % 7.2 % Eosinophils % 0.6 % Basophils % 0.4 % Neutrophils # 9.4 H (1.6-8.9) K/mcL Lymphocytes # 2.1 (0.6-4.6) K/mcL Monocytes # 0.9 (0.0-1.3) K/mcL Eosinophils # 0.1 (0.0-0.6) K/mcL Basophils # 0.1 (0.0-0.2) K/mcL ABG pH 7.39 (7.32-7.45) pH Units ABG pCO2 42 (35-45) mmHg ABG pO2 586 H (85-104) mmHg ABG HCO3 26 (21-27) mEq/L ABG Total CO2 27 H (20-26) mEq/L ABG O2 Saturation 100 H (95-98) % ABG Base Excess 1 (-2 to 3) mEq/L Respiration Rate 20 O2 Delivery Device ET Tube Blood Gas Modality ASSIST CONTROL Inspired O2 100.0 (1-15=lpm [id number]=%) Tidal Volume 400 cc PEEP 5 cm H2O Sodium 130 L (136-145) mEq/L Potassium 3.9 (3.5-5.1) mEq/L Chloride 92 L (98-107) mEq/L Carbon Dioxide 23 (23-29) mEq/L BUN 5 L (6-20) mg/dL Creatinine 0.59 L (0.70-1.30) mg/dL Est GFR ( Amer) > 60 (> 60) Est GFR (Non-Af Amer) > 60 (> 60) BUN/Creatinine Ratio 8 (6-26) Glucose 111 H (70-105) mg/dL Calculated Osmolality 268 L (280-300) Calcium 8.8 (8.6-10.3) mg/dL Troponin I 0.05 H* (< 0.04) ng/mL - Radiology Data Radiology results reviewed: Yes I reviewed the patient's radiology results. Chest X-Ray 07/27/18 00:16 IMPRESSION: Endotracheal tube terminates 3 cm above the blaze. Hyperexpanded lung volume and diffusely prominent interstitial markings can be seen in the setting of COPD. No consolidation. D/ / James Sessions / James Antunez Interpreting Provider: James Antunez - EKG Data EKG #1 EKG attestation: Yes I reviewed and interpreted this EKG. EKG results narrative: Repeat EKG shows a narrow complex tachycardia with ventricular rate of 189. Minimal ST depression in inferior leads. No ectopy. EKG #2 EKG attestation: Yes I reviewed and interpreted this EKG. EKG results narrative: Repeat EKG shows a narrow complex tachycardia with ventricular rate of 189. Minimal ST depression in inferior leads. No ectopy. Critical Care Time Critical Care Time: Yes Total Critical Care Time: 60 Attestation: Critical care performed: Time is exclusive of separately billable procedures. Time includes: direct patient care, patient reassessment, coordination of patient care, interpretation of data (laboratory data, radiology data, and respiratory data), review of patient's medical records, medical consultation and documentation of patient care. Procedures included in critical care time: Procedures excluded from critical care time: Endotracheal intubation Attestation Statement - Attestation Attestation: I, Mauro Rodriguez MD, personally evaluated this patient and discussed their management with the resident physician. I reviewed the resident's note and agree with the documented findings, medical decision making, and plan of care. 57-year-old male with history of COPD presents to the emergency department by EMS in respiratory distress. Patient complains of increasing cough and congestion and shortness of breath over the past few days. Acutely worse tonight. On arrival patient in severe respiratory distress. Patient standing and leaning over the counter or the stretcher. He refuses to get on the stretcher. He received nebulizer treatments per EMS in route. He was given additional nebulizer treatments here in the emergency department. Patient was placed on BiPAP but could not tolerate the BiPAP. He was very hypertensive and tachycardic. He maintained his oxygen saturations in the 90s but working extremely hard to breathe and using accessory muscles. Denied any chest pain. On examination patient is a well-developed well-nourished male in severe respiratory distress. He is alert and able to speak in just a few words at a time. No cyanosis or diaphoresis. Breath sounds are markedly decreased bilaterally with diffuse tight bilateral expiratory wheezes. Heart is tachycardic and regular. Abdomen soft and nontender with present bowel sounds. No pedal edema. As noted above patient cannot tolerate BiPAP he seemed to be getting progressively more tired. Also his heart rate progressively increased. The decision was made to intubate patient. He agreed to this verbally. Patient was sedated with etomidate and rocuronium. He was intubated by Dr. Mejia. I was present for the entire procedure. Patient received adenosine 12 mg IV 2 doses for his tachycardia with no change in rhythm. He then received Lopressor 10 mg IV with significant improvement in his tachycardia and his hypertension. Chest x-ray shows COPD with hyperexpanded lungs. No consolidation. EKG shows a sinus tachycardia. Heart rate initially 155. A repeat EKG later showed narrow complex tachycardia with a rate of 189. Labs reviewed. The hospitalist, Dr. Mcintyre, was consulted and accepted admission of the patient.
[2018-07-27] MEDS: Dexmedetomidine HCl 400 MCG/100 ML MLS IVC SCH (02:31)
--- NOTE | 2018-07-27 03:12 | Internal Med History&Physical ---
<Miranda Dasilva M - Last Filed: 07/27/18 05:50> Date of Encounter: 07/27/18 Time of Encounter: 03:10 Internal Medicine - H&P: HPI Admitted From: Emergency Dept History of present illness: Mr. Martínez is a 57 year old male with history of alcohol abuse, COPD who presents the emergency department with complaints of respiratory distress. Patient is not on home oxygen. History is limited given the patient is intubated and chemically sedated. On initial presentation the patient was not significantly hypoxic but was significantly tachycardic, hypertensive and tach. He was unable to tolerate attempts of managing his COPD exacerbation including 2 nebs, met hylprednisolone and BiPAP. He continued to be in in extremis and was unable to even sit down given his persistent tripoding and was intubated for respiratory distress. Initial laboratory workup shows slight leukocytosis at 12.6. ABG shows pH 7.39, CO2 42, PO2 586, HCO3 to 6. This was after intubation. BMP shows hyponatremia of 130, CO2 92, creatinine 0.59 and a glucose of 111. Did have slight elevated troponin of 0.05. He was also given adenosine and lopressor due to significant tachycardia. He was started on a propofol and fentanyl drip for sedation. He was given 60mg Lovenox. Past Med Surg Social Fam HX - Past Medical History Medical history: COPD Psychiatric history: other - Past Surgical History Surgical History: orthopedic, other - Social History Smoking Status: Light tobacco smoker Smokeless Tobacco Status: No Alcohol use: heavy, recent Drug use: prescription drug abuse - Family History Mother Living Status: Still Living Hx Family Cardiac Disorders: Yes (high blood pressure) Hx Family Endocrine Disorder: Yes (DM) Hx Family Neurologic Disorders: Yes (dementia) Father Living Status: Still Living Internal Medicine - H&P: Meds Acetaminophen [Tylenol 8 Hour] 650 mg PO Q6H PRN #30 tablet.er 02/05/18 [Rx] Budesonide/Formoterol 80/4.5 [Symbicort 80/4.5] 2 puff IH BID #1 hfa.aer.ad 02/05/18 [Rx] Carvedilol 3.125 mg PO BID #60 tab 02/05/18 [Rx] Citalopram [CeleXA] 20 mg PO DAILY #30 tablet 02/05/18 [Rx] Ipratropium/Albuterol Neb [Duoneb] 3 ml IH [id number] PRN #30 inhsol 02/05/18 [Rx] Lisinopril [Zestril] 10 mg PO DAILY #30 tablet 02/05/18 [Rx] Oxycodone HCl/Acetaminophen [Percocet 5-325 mg Tablet] 1 each PO Q8H PRN 5 Days #10 tablet 02/05/18 [Rx] Vits96/Iron Fum/Folic [ Tablet] 1 each PO DAILY #30 tablet 02/05/18 [Rx] predniSONE [PredniSONE] 40 mg PO DAILY 3 Days #6 tablet 02/05/18 [Rx] Allergy/AdvReac Type Severity Reaction Status Date / Time No Known Allergies Allergy Verified 01/31/18 12:05 ROS unobtainable: due to endotracheal tube All Systems PM: A 10-system review of systems was performed and is negative for pertinent findings except as documented above in the HPI. - Constitutional Vitals: Temp Pulse Resp BP Pulse Ox 98.0 F 143 20 120/87 99 07/27/18 00:10 07/27/18 01:35 07/27/18 01:16 07/27/18 01:35 07/27/18 01:30 General appearance: Present: underweight Exam: General: Patient is a thin, frail appearing 57 yo M who is chemically sedated and intubated Neck: No JVD. Trachea midline. Neck supple. Eyes: PERRL. No scleral icterus. HENT: Normocephalic and atraumatic. Moist mucus membranes. Cardiovascular: Regular rate and rhythm. Normal S1 and S2. No murmurs appreciated. Normal capillary refill. Extremities well perfused with 2+ distal pulses bilaterally. No edema. Pulmonary: Coarse breath sounds throughout, anterior and posterior. Tight breath sounds, end expiratory wheezes. Intubated and on mechanical ventilation Abdomen: Soft, nondistended, and tontender. No bruits or masses. No guarding. Neuro: No focal deficits noted. Skin: No rashes noted on visualized skin. Musculoskeletal: No bony abnormalities visualized. Internal Med - H&P Results - Labs CBC & Chem 7: 07/27/18 04:32 07/27/18 04:32 Labs: Short CBC 07/27/18 Range/Units 00:17 WBC 12.6 H (4.3-11.1) K/mcL Hgb 15.4 (12.9-16.9) g/dL Hct 45.4 (37.5-50.1) % Plt Count 200 (140-400) K/mcL Neutrophils # 9.4 H (1.6-8.9) K/mcL BMP 07/27/18 00:17 Sodium 130 L Potassium 3.9 Chloride 92 L Carbon Dioxide 23 BUN 5 L Creatinine 0.59 L Glucose 111 H Calcium 8.8 Cardiac Enzymes 07/27/18 Range/Units 00:17 Troponin I 0.05 H* (< 0.04) ng/mL - ABG Interpretation ABG results: 07/27/18 01:33 ABG pH 7.39 ABG pCO2 42 ABG pO2 586 H ABG HCO3 26 ABG Total CO2 27 H ABG O2 Saturation 100 H ABG Base Excess 1 - Impressions ITS Impressions Chest X-Ray 07/27/18 00:16 IMPRESSION: Endotracheal tube terminates 3 cm above the blaze. Hyperexpanded lung volume and diffusely prominent interstitial markings can be seen in the setting of COPD. No consolidation. D/ / James Sessions / James Sessions Interpreting Provider: James Sessions - Assessment and Plan (1) Acute respiratory failure with hypoxia and hypercapnia Current Visit: Yes Status: Acute Assessment and plan: * Has history of COPD with signficant wheezing and work of breathing upon arrival, patient elected for intubation given significant tachypnea and work of breathing. * At this point cannot rule out infectious process * Will draw blood cultures and emirically treat with Zosyn and Levaquin * Sputum culture * At this point low suspicion for PE given gradual onset, will repeat Chest XR this morning to evaluate for focal consolidation (2) COPD (chronic obstructive pulmonary disease) Current Visit: Yes Status: Chronic Assessment and plan: * Will continue with bronchodilators and steroids * Cautiously wean from sedation and CPAP trial when stable * Ventilator management per protocol * Electrolyte repletion * ABG every AM Qualifiers: COPD type: COPD with acute exacerbation Qualified Code(s): J44.1 - Chronic obstructive pulmonary disease with (acute) exacerbation (3) Alcohol abuse Current Visit: Yes Status: Acute Assessment and plan: * Will continue with versed/fentanyl drips * Thiamine and folic acid repletion (4) Elevated troponin Current Visit: Yes Status: Acute Assessment and plan: * No complaints of chest pain prior to intubation * No ischemic changes on EKG in ED, will repeat - Time Spent With Patient Total time spent is greater than 50% in coordination of care (as documented) at patient's floor/unit and/or counseling patient: <Buzz Rangel - Last Filed: 07/27/18 06:23> Date of Encounter: 07/27/18 Time of Encounter: 04:00 ROS unobtainable: due to endotracheal tube - Constitutional Vitals: Temp Pulse Resp BP Pulse Ox 97.7 F 99 20 86/63 97 07/27/18 04:00 07/27/18 05:00 07/27/18 05:03 07/27/18 05:03 07/27/18 05:03 General appearance: Present: disheveled, underweight Exam: sedated, intubated, wakes up easily and is agitated by ETT -- pulling at ETT tube - Head Head exam: Present: atraumatic, normal inspection - Eye Eye exam: Present: PERRL. Absent: scleral icterus - ENT ENT exam: Present: mucous membranes dry, normal exam, normal oropharynx Additional comments: ETT and OG tubes in place - Neck Neck exam general surgery: Present: full ROM, trachea midline. Absent: ten derness, nuchal rigidity, thyromegaly, supple - Respiratory Respiratory exam: Present: prolonged expiratory phase, respiratory distress (severe distress when awake; with sedation, resting comfortbaly with prolonged expiratory phase), rhonchi, wheezes. Absent: rales - Cardiovascular Cardiovascular exam: Present: +S1, +S2, tachycardia. Absent: diastolic murmur, systolic murmur - GI/Abdominal GI/Abdominal exam: Present: normal bowel sounds, soft, no peritoneal signs. Absent: hepatomegaly, mass, rebound, splenomegaly, tenderness - Extremities Exam Extremities exam: Present: full ROM, pedal edema, warm, radial pulses palpable and symmetrical. Absent: calf tenderness, cyanotic, tenderness - Back Exam Back exam: Absent: CVA tenderness (L), CVA tenderness (R) - Neurological Exam Neurological exam: Present: no focal deficits Additional comments: sedated but easily arousable and moving all four extremities purposely - Psychiatric Psychiatric exam: Present: normal affect, normal mood - Skin Skin exam: Present: dry, intact, warm Internal Med - H&P Results - Labs CBC & Chem 7: 07/27/18 04:32 07/27/18 04:32 Labs: Short CBC 07/27/18 07/27/18 Range/Units 00:17 04:32 WBC 12.6 H 6.4 (4.3-11.1) K/mcL Hgb 15.4 12.5 L D (12.9-16.9) g/dL Hct 45.4 37.8 (37.5-50.1) % Plt Count 200 137 L (140-400) K/mcL Neutrophils # 9.4 H 6.0 (1.6-8.9) K/mcL BMP 07/27/18 07/27/18 00:17 04:32 Sodium 130 L 132 L Potassium 3.9 3.9 Chloride 92 L 99 Carbon Dioxide 23 21 L BUN 5 L 8 Creatinine 0.59 L 0.67 L Glucose 111 H 102 Calcium 8.8 7.8 L Cardiac Enzymes 07/27/18 07/27/18 Range/Units 00:17 04:32 Troponin I 0.05 H* 0.16 H* (< 0.04) ng/mL - ABG Interpretation ABG results: 07/27/18 07/27/18 01:33 05:03 ABG pH 7.39 7.21 L D ABG pCO2 42 54 H ABG pO2 586 H 191 H D ABG HCO3 26 22 ABG Total CO2 27 H 23 ABG O2 Saturation 100 H 99 H ABG Base Excess 1 -7 L - Impressions ITS Impressions Chest X-Ray 07/27/18 00:16 IMPRESSION: Endotracheal tube terminates 3 cm above the blaze. Hyperexpanded lung volume and diffusely prominent interstitial markings can be seen in the setting of COPD. No consolidation. D/ / James Sessions / James Sessions Interpreting Provider: James Sessions X-Ray 07/27/18 03:55 IMPRESSION: Enteric tube is looped at the gastroesophageal junction and should be replaced. D/ / Leroy Hare MD / Leroy Hare MD Interpreting Provider: Leroy Hare MD - Diagnostic Studies Chest x-ray Status: image reviewed by me (hyperinflated) - Time Spent With Patient Total time spent is greater than 50% in coordination of care (as documented) at patient's floor/unit and/or counseling patient: - Attending Attestation I discussed the patient [facility], past medical history, lab data, imaging data, and exam findings with Dr. Dasilva. We then discussed treatment plan. I then saw and examined patient independently in the ER as patient was being prepared to be transferred to ICU. Patient was sedated, but he was easily arousable. He became quite agitated and was pulling on his ET tube. I cannot obtain any history from patient whatsoever. On exam, he is in obvious respiratory distress and had profound wheezing, prolonged expiratory phase, and agitation with the ET tube. Once he was sedated again, he was comfortable and breathing with the ventilator. Patient was then moved to the ICU and I reassessed patient in the ICU. I recommended sedation with fentanyl and Versed given his heavy alcohol use and abuse and high tolerance to sedating medications. He is at high-risk for alcohol withdrawal, and I therefore recommended Versed as part of his sedating medications. We will continue him on steroids, aerosols, nebulized treatments, and antibiotics. We will continue mechanical ventilation and repeat ABG. We will ask ICU director corporate compliance to assume care with the ventilatory status and changes. Other than my comments above and documented exam findings, I agree with Dr. Dasilva's assessment and plan. Please note that a total of 40 minutes critical care time spent assessing, examining, caring for patient, reviewing treatment pain, and viewing his imaging studies.
[2018-07-27] MEDS ORDERED: 0.9 % Sodium Chloride 1,000 ML IVC ONE (03:16)
[2018-07-27] MEDS ORDERED: *HR* Midazolam HCl 2 MG/2 ML VIAL IVP ONE (03:20)
[2018-07-27] MEDS ORDERED: *HR* Midazolam HCl 2 MG/2 ML VIAL ONE (03:21)
[2018-07-27] MEDS ORDERED: Artificial Tears SOLN 15 ML BOTTLE BOTH EYES PRN (03:33)
[2018-07-27 04:51] LABS: Basophils % 0.2 %; Hematocrit 37.8 % (37.5-50.1); Immature Granulocytes % 0.3 % (0-4); Lymphocytes # 0.3 K/mcL (0.6-4.6); Lymphocytes % 4.4 %; Mean Corpuscular HGB Conc 33.1 g/dL (31.6-35.5); Mean Corpuscular Volume 96.7 fL (83.0-100.0); Monocytes # 0.1 K/mcL (0.0-1.3); Monocytes % 1.7 %; Platelet Count 137 K/mcL (140-400); Red Blood Count 3.91 M/mcL (4.19-5.50); Red Cell Distribution Width 12.7 % (11.5-14.5); Segmented Neutrophils % 93.4 %
[2018-07-27 04:52] LABS: Hemoglobin 12.5 g/dL (12.9-16.9)
[2018-07-27] MEDS: Artificial Tears SOLN 15 ML BOTTLE BOTH EYES SCH ×6 (04:55→23:38)
[2018-07-27 04:57] LABS: VBG Ionized Calcium 0.94 mmol/L (1.15-1.35)
[2018-07-27 05:07] LABS: ABG Base Excess -7 mEq/L (-2 to 3); ABG HCO3 22 mEq/L (21-27); ABG Oxygen Saturation 99 % (95-98); ABG PCO2 54 mmHg (35-45); ABG PH 7.21 pH Units (7.32-7.45); ABG PO2 191 mmHg (85-104); ABG TCO2 23 mEq/L (20-26); Blood Gas Modality ASSIST CONTROL; Blood Gas PEEP 5 cm H2O; Blood Gas Respiration Rate 20; Blood Gas VT 400 cc
[2018-07-27 05:13] LABS: BUN/Creatinine Ratio 12 (6-26); Blood Urea Nitrogen 8 mg/dL (6-20); Calcium 7.8 mg/dL (8.6-10.3); Carbon Dioxide 21 mEq/L (23-29); Chloride 99 mEq/L (98-107); Glucose 102 mg/dL (70-105); Magnesium 1.7 mg/dL (1.6-2.6); Osmolality,Calculated 273 (280-300); Phosphorous 3.9 mg/dL (2.7-4.5); Potassium 3.9 mEq/L (3.5-5.1); Sodium 132 mEq/L (136-145); Troponin I 0.16 ng/mL (< 0.04); eGFR For Non-African Americans > 60 (> 60)
[2018-07-27] MEDS: *HR* Heparin 5,000 UNIT/ML VIAL SQ SCH ×2 (06:01→18:22)
[2018-07-27] MEDS: Pantoprazole 40 MG VIAL IVP SCH (06:01)
[2018-07-27 06:41] LABS: ABG Base Excess -5 mEq/L (-2 to 3); ABG HCO3 21 mEq/L (21-27); ABG Oxygen Saturation 99 % (95-98); ABG PCO2 44 mmHg (35-45); ABG PO2 142 mmHg (85-104); ABG TCO2 23 mEq/L (20-26); Blood Gas Modality ASSIST CONTROL; Blood Gas PEEP 5 cm H2O; Blood Gas Respiration Rate 20; Blood Gas VT 400 cc
--- NOTE | 2018-07-27 07:05 | Pulmonology Consult Note ---
<Juan Pena P - Last Filed: 07/27/18 10:43> Date of Encounter: 07/27/18 Time of Encounter: 08:00 Assessment and Plan (1) Acute respiratory failure with hypoxia and hypercapnia Current Visit: Yes Status: Acute * Pt with COPD chronic smoker without home oxygen presented with signficant wheezing and work of breathing upon arrival, * Patient was intubated as he was increasingly hypoxic despite BiPAP, IV steroid, nebulizer * He is on fentanyl and Precedex, but not on pressure support after ventilation. * Chest x-ray showed only she will COAD changes without obvious infection, total white cell count normal. * ABG : Primary chronic respi acidosis with sec metabolic acidosis : Ph 7.30, Hco3 21, Pco2 44, [id number], Cl 99, Na 132 * Viral respiratory panel, MRSA nasal swab, blood culture, sputum culture awaited * Zosyn and Levaquin was started empirically * He is on albuterol and DuoNeb nebulizer, IV steroid, oxygen. (2) Acute exacerbation of chronic obstructive airways disease Current Visit: Yes Status: Acute * He is a chronic patient of COPD without home oxygen * He is chronic smoker and under medication for COPD, prednisone 40 and Symbicort inhaler * Increased shortness of breath with hypoxia and hypercapnia might be related to exacerbation of COPD ? triggered by infection He is on IV antibiotic; Zosyn and Levaquin, IV Solu Medrol, albuterol and DuoNeb nebulization for bronchospasms * He is still on intubation and mechanical ventilation * Respiratory viral panel awaited, MRSA nasal swab awaited, sputum culture awaited * We will evaluate with check x-ray tomorrow (3) Elevated troponin level Current Visit: Yes Status: Acute * The patient has elevated troponin, 0.16, 0.05 * We have ordered time troponin and we will closely monitor the lab result * Recent EKG does not show any ST or T elevation * He is on cafeteria monitor * We will evaluate with 12 lead EKG again. (4) Hyponatremia Current Visit: No Status: Acute * The pt has low serum sodium level ; 130, repeat test shows 132 * We will closely monitor and repeat BMP today. (5) Alcohol abuse Current Visit: Yes Status: Acute * The patient is chronic or chronic patient, step multiple admission for alcohol abuse * He is on IV thiamine, folic acid * We will watch for withdrawal symptoms after he is out of ventilation, (6) DVT prophylaxis Current Visit: Yes Status: Acute The patient is on DVT prophylaxis Heparin SQ History of Present Illness Reason for consult: dyspnea, cough, COPD, hypoxemia, abnormal CXR/CT Chief complaint: Acute respiratory failure with hypoxia and hypercapnia,Intubated patient History of present illness: He is 57 year old male with history of alcohol abuse, COPD who presents the emergency department with complaints of respiratory distress. Patient is not on home oxygen . The patient was not significantly hypoxic but was significantly tachycardic, hypertensive and tach. He was unable to tolerate attempts of managing his COPD exacerbation including 2 nebs, methylprednisolone and BiPAP. He was was intubated for increased respiratory distress. He was started on a propofol and fentanyl drip for sedation at ED . The patient was transferred to ICU for further workup and management. Today during my visit, the patient was intubated and sedated , but he wasnot on pressure support. His vitals were pulse 88, respirations 16, blood pressure 97/69, saturation 94% on vent . We have planned to increase the dosage and frequency of nebulizer. We will gradually decrease the dose of sedation and try to extubate tomorrow. Past Med Surg Social Fam HX - Past Medical History Medical history: COPD Psychiatric history: other - Past Surgical History Surgical History: orthopedic, other - Social History Smoking Status: Light tobacco smoker Smokeless Tobacco Status: No Alcohol use: heavy, recent Drug use: prescription drug abuse - Family History Mother Living Status: Still Living Hx Family Cardiac Disorders: Yes (high blood pressure) Hx Family Endocrine Disorder: Yes (DM) Hx Family Neurologic Disorders: Yes (dementia) Father Living Status: Still Living Medications and Allergies Acetaminophen [Tylenol 8 Hour] 650 mg PO Q6H PRN #30 tablet.er 02/05/18 [Rx] Budesonide/Formoterol 80/4.5 [Symbicort 80/4.5] 2 puff IH BID #1 hfa.aer.ad 02/05/18 [Rx] Carvedilol 3.125 mg PO BID #60 tab 02/05/18 [Rx] Citalopram [CeleXA] 20 mg PO DAILY #30 tablet 02/05/18 [Rx] Ipratropium/Albuterol Neb [Duoneb] 3 ml IH [id number] PRN #30 inhsol 02/05/18 [Rx] Lisinopril [Zestril] 10 mg PO DAILY #30 tablet 02/05/18 [Rx] Oxycodone HCl/Acetaminophen [Percocet 5-325 mg Tablet] 1 each PO Q8H PRN 5 Days #10 tablet 02/05/18 [Rx] Vits96/Iron Fum/Folic [ Tablet] 1 each PO DAILY #30 tablet 02/05/18 [Rx] predniSONE [PredniSONE] 40 mg PO DAILY 3 Days #6 tablet 02/05/18 [Rx] Allergy/AdvReac Type Severity Reaction Status Date / Time No Known Allergies Allergy Verified 01/31/18 12:05 ROS unobtainable: due to endotracheal tube All Systems: The remainder of the systems were reviewed and are negative - Constitutional Constitutional: fever(s) - Cardiovascular Cardiovascular: dyspnea, dyspnea on exertion, orthopnea - Respiratory Respiratory: cough, dyspnea, wheezing, chest congestion - Allergic/Immunologic Allergic/Immunologic: wheezing Physical Examination Vital Signs: Vital Signs, Last 4 Hours Temp Pulse Resp BP Pulse Ox 07/27/18 07:00 93 20 73/56 96 07/27/18 06:00 96 20 92/75 96 07/27/18 05:03 20 86/63 97 07/27/18 05:00 99 20 86/63 97 07/27/18 04:00 97.7 F 102 20 103/68 97 07/27/18 03:45 101 20 54/35 96 07/27/18 03:35 97.7 F General appearance: comatose, appears uncomfortable Eyes: nonicteric ENT: oropharynx dry Neck: supple Effort: other (Intubated and Mechanically ventilated) Cardiovascular: regular rate and rhythm Gastrointestinal: hypoactive bowel sounds, soft, non-tender, non-distended Integumentary: normal non-focal exam, pupils equal and round, CN II-XII normal, motor strength normal and symmetric Ventilator Settings Ventilator Settings: Ventilator Settings, Last 8 Hours Ventilator Tidal Volume 400 Setting Ventilator Tidal Volume 400 Setting Ventilator Tidal Volume 400 Setting Ventilator Tidal Volume 400 Setting Ventilator Tidal Volume 400 Setting Ventilator Tidal Volume 400 Setting Ventilator Tidal Volume 400 Setting Ventilator Tidal Volume 400 Setting Ventilator Tidal Volume 400 Setting Ventilator Tidal Volume 400 Setting Ventilator Respiratory Rate 20 Setting Ventilator Respiratory Rate 20 Setting Ventilator Respiratory Rate 20 Setting Ventilator Respiratory Rate 20 Setting Ventilator Respiratory Rate 20 Setting Ventilator Respiratory Rate 20 Setting Ventilator Respiratory Rate 20 Setting Ventilator Respiratory Rate 20 Setting Ventilator Respiratory Rate 20 Setting Ventilator Respiratory Rate 20 Setting Actual Respiratory Rate 20 Actual Respiratory Rate 20 Actual Respiratory Rate 20 Actual Respiratory Rate 20 Actual Respiratory Rate 20 Actual Respiratory Rate 20 Actual Respiratory Rate 20 Positive End Expiratory 5 Pressure Positive End Expiratory 5 Pressure Positive End Expiratory 5 Pressure Positive End Expiratory 5 Pressure Positive End Expiratory 5 Pressure Positive End Expiratory 5 Pressure Positive End Expiratory 5 Pressure Positive End Expiratory 5 Pressure Positive End Expiratory 5 Pressure Positive End Expiratory 5 Pressure Peak Inspiratory Airway 36 Pressure Peak Inspiratory Airway 36 Pressure Peak Inspiratory Airway 30 Pressure Peak Inspiratory Airway 30 Pressure Peak Inspiratory Airway 33 Pressure Peak Inspiratory Airway 34 Pressure Peak Inspiratory Airway 29 Pressure Results - Laboratory Findings CBC and BMP: 07/27/18 07:47 07/27/18 04:32 ABG ABG pH 7.30 pH Units (7.32-7.45) L 07/27/18 06:38 ABG pCO2 44 mmHg (35-45) 07/27/18 06:38 ABG pO2 142 mmHg (85-104) H D 07/27/18 06:38 ABG O2 Saturation 99 % (95-98) H 07/27/18 06:38 Abnormal lab findings: Abnormal lab results RBC 3.91 M/mcL (4.19-5.50) L 07/27/18 04:32 Hgb 12.5 g/dL (12.9-16.9) L D 07/27/18 04:32 Plt Count 137 K/mcL (140-400) L 07/27/18 04:32 Lymphocytes # 0.3 K/mcL (0.6-4.6) L 07/27/18 04:32 ABG pH 7.30 pH Units (7.32-7.45) L 07/27/18 06:38 ABG pO2 142 mmHg (85-104) H D 07/27/18 06:38 ABG O2 Saturation 99 % (95-98) H 07/27/18 06:38 ABG Base Excess -5 mEq/L (-2 to 3) L 07/27/18 06:38 Sodium 132 mEq/L (136-145) L 07/27/18 04:32 Carbon Dioxide 21 mEq/L (23-29) L 07/27/18 04:32 Creatinine 0.67 mg/dL (0.70-1.30) L 07/27/18 04:32 Calculated Osmolality 273 (280-300) L 07/27/18 04:32 Calcium 7.8 mg/dL (8.6-10.3) L 07/27/18 04:32 Venous Ioniz Calcium 0.94 mmol/L (1.15-1.35) L 07/27/18 04:55 Troponin I 0.16 ng/mL (< 0.04) H* 07/27/18 04:32 - Microbiology Findings Microbiology Findings: Microbiology, Last 48 Hours 07/27/18 04:32 Blood Culture - Preliminary Peripheral Venipuncture Culture is incubating and being continuously monitored for growth. Final report to follow. 07/27/18 04:32 Blood Culture - Preliminary Peripheral Venipuncture Culture is incubating and being continuously monitored for growth. Final report to follow. - Clinical Findings Intake & Output: Intake & Output 07/26/18 07/26/18 07/27/18 15:59 23:59 07:59 Intake Total 1195.8 / 1195.8 Output Total 150 / 150 Balance 1045.8 / 1045.8 Weight 66 kg Consult Discharge Plan - Plan Referrals: NONE,PCP [Primary Care Provider] - <Bereket Perez W - Last Filed: 07/27/18 11:07> Date of Encounter: 07/27/18 All Systems: The remainder of the systems were reviewed and are negative Physical Examination Vital Signs: Vital Signs, Last 4 Hours Temp Pulse Resp BP Pulse Ox 07/27/18 10:00 88 16 97/69 94 07/27/18 09:44 16 96 07/27/18 09:00 89 16 92/66 96 07/27/18 08:00 88 16 81/62 96 07/27/18 07:44 89 07/27/18 07:37 16 95 07/27/18 07:35 97.6 F Ventilator Settings Ventilator Settings: Ventilator Settings, Last 8 Hours Ventilator Tidal Volume 430 Setting Ventilator Tidal Volume 430 Setting Ventilator Tidal Volume 430 Setting Ventilator Tidal Volume 430 Setting Ventilator Tidal Volume 400 Setting Ventilator Tidal Volume 400 Setting Ventilator Tidal Volume 400 Setting Ventilator Tidal Volume 400 Setting Ventilator Tidal Volume 400 Setting Ventilator Tidal Volume 400 Setting Ventilator Tidal Volume 400 Setting Ventilator Tidal Volume 400 Setting Ventilator Respiratory Rate 16 Setting Ventilator Respiratory Rate 16 Setting Ventilator Respiratory Rate 16 Setting Ventilator Respiratory Rate 16 Setting Ventilator Respiratory Rate 20 Setting Ventilator Respiratory Rate 20 Setting Ventilator Respiratory Rate 20 Setting Ventilator Respiratory Rate 20 Setting Ventilator Respiratory Rate 20 Setting Ventilator Respiratory Rate 20 Setting Ventilator Respiratory Rate 20 Setting Ventilator Respiratory Rate 20 Setting Actual Respiratory Rate 16 Actual Respiratory Rate 16 Actual Respiratory Rate 20 Actual Respiratory Rate 20 Actual Respiratory Rate 20 Actual Respiratory Rate 20 Actual Respiratory Rate 20 Actual Respiratory Rate 20 Positive End Expiratory 5 Pressure Positive End Expiratory 5 Pressure Positive End Expiratory 5 Pressure Positive End Expiratory 5 Pressure Positive End Expiratory 5 Pressure Positive End Expiratory 5 Pressure Positive End Expiratory 5 Pressure Positive End Expiratory 5 Pressure Positive End Expiratory 5 Pressure Positive End Expiratory 5 Pressure Positive End Expiratory 5 Pressure Positive End Expiratory 5 Pressure Peak Inspiratory Airway 33 Pressure Peak Inspiratory Airway 35 Pressure Peak Inspiratory Airway 36 Pressure Peak Inspiratory Airway 36 Pressure Peak Inspiratory Airway 30 Pressure Peak Inspiratory Airway 30 Pressure Peak Inspiratory Airway 33 Pressure Peak Inspiratory Airway 34 Pressure Results - Laboratory Findings CBC and BMP: 07/27/18 07:47 07/27/18 04:32 ABG ABG pH 7.28 pH Units (7.32-7.45) L 07/27/18 08:13 ABG pCO2 42 mmHg (35-45) 07/27/18 08:13 ABG pO2 110 mmHg (85-104) H 07/27/18 08:13 ABG O2 Saturation 98 % (95-98) 07/27/18 08:13 Abnormal lab findings: Abnormal lab results RBC 3.92 M/mcL (4.19-5.50) L 07/27/18 07:47 Hgb 12.7 g/dL (12.9-16.9) L 07/27/18 07:47 Hct 36.8 % (37.5-50.1) L 07/27/18 07:47 Plt Count 118 K/mcL (140-400) L 07/27/18 07:47 Lymphocytes # 0.4 K/mcL (0.6-4.6) L 07/27/18 07:47 ABG pH 7.28 pH Units (7.32-7.45) L 07/27/18 08:13 ABG pO2 110 mmHg (85-104) H 07/27/18 08:13 ABG HCO3 20 mEq/L (21-27) L 07/27/18 08:13 ABG Base Excess -7 mEq/L (-2 to 3) L 07/27/18 08:13 Sodium 132 mEq/L (136-145) L 07/27/18 04:32 Carbon Dioxide 21 mEq/L (23-29) L 07/27/18 04:32 Creatinine 0.67 mg/dL (0.70-1.30) L 07/27/18 04:32 Calculated Osmolality 273 (280-300) L 07/27/18 04:32 Calcium 7.8 mg/dL (8.6-10.3) L 07/27/18 04:32 Venous Ioniz Calcium 0.94 mmol/L (1.15-1.35) L 07/27/18 04:55 Troponin I 0.13 ng/mL (< 0.04) H* 07/27/18 09:47 - Microbiology Findings Microbiology Findings: Microbiology, Last 48 Hours 07/27/18 06:42 Influenza Types A,B Antigen - Final Nasopharyngeal 07/27/18 04:32 Blood Culture - Preliminary Peripheral Venipuncture Culture is incubating and being continuously monitored for growth. Final report to follow. 07/27/18 04:32 Blood Culture - Preliminary Peripheral Venipuncture Culture is incubating and being continuously monitored for growth. Final report to follow. - Clinical Findings Intake & Output: Intake & Output 07/26/18 07/27/18 07/27/18 23:59 07:59 15:59 Intake Total 1195.8 / 1195.8 92.5 / 92.5 Output Total 200 / 200 Balance 995.8 / 995.8 92.5 / 92.5 Weight 66 kg - Attending Attestation I examined this patient and my medical decision-making was reviewed with the Resident Physician. I agree with the documented findings, disposition and treatment plan as described except to the extent set forth below. We independently had [id number] contact with the patient I spent 35min of Critical Care time with this patient. It involved decision making of high complexity to assess, manipulate, and support vital organ system failure and/or to prevent further life threatening deterioration of the patient's condition. The time involved in the performance of separately reportable procedures was not counted toward critical care time. Patient seen and examined at bedside Labs, radiology, chart personally reviewed. Management was reviewed during multidisciplinary critical care rounds. 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 Cont Versed add precedex cont fentanyl Pulm: Acute on chronic hypoxic hypercapnic respiratory failure secondary to COPD exacerbation cannot rule out infectious processes far I adjusted his vent settings to have improvement and ID ratio with decrease in auto PEEP and air trapping but this has resulted in slightly worsening of his respiratory acidosis but in acceptable range continue aggressive bronchodilator regimen and will add Symbicort continue IV systemic glucocorticoids Cards: Her monitored on the lower side likely secondary sedation his fluid responsive we will give another liter of fluid at this time mild troponin elevation likely secondary to demand but will trend closely there is some nonspecific ST changes on EKG and may need echocardiogram doubt that this is a ACS however GI: GI prophylaxis while on vent Nutrition: Nothing by mouth for now Renal: UOP Monitored, Cont to Trend sCr and monitor Electrolytes. ID: Ove including pseudomonal coverage respiratory infection panel pending MRSA nasal swab de-escalate in next 24-48 hours r and broadly for possible pneumonia Heme/Onc: DVT prophylaxis given Endo: Glucose Monitored Integ/MSK: Skin Care per routine ICU Nursing Protocol to prevent ulcers. Lines: All lines examined without evidence of infection : Dispo: Remain in ICU for critical illness CODE: Full
[2018-07-27] MEDS ORDERED: Ringers Solution, Lactated 1,000 ML IVC ONE (07:36)
[2018-07-27 08:03] LABS: Basophils % 0.2 %; Hematocrit 36.8 % (37.5-50.1); Hemoglobin 12.7 g/dL (12.9-16.9); Immature Granulocytes % 0.4 % (0-4); Lymphocytes # 0.4 K/mcL (0.6-4.6); Lymphocytes % 6.8 %; Mean Corpuscular HGB Conc 34.5 g/dL (31.6-35.5); Mean Corpuscular Hemoglobin 32.4 pg (28.0-33.3); Mean Corpuscular Volume 93.9 fL (83.0-100.0); Mean Platelet Volume 9.5 fL (9.4-12.4); Monocytes # 0.1 K/mcL (0.0-1.3); Monocytes % 2.5 %; Neutrophils # 5.1 K/mcL (1.6-8.9); Platelet Count 118 K/mcL (140-400); Red Blood Count 3.92 M/mcL (4.19-5.50); Segmented Neutrophils % 90.1 %
[2018-07-27 08:18] LABS: ABG Base Excess -7 mEq/L (-2 to 3); ABG HCO3 20 mEq/L (21-27); ABG Oxygen Saturation 98 % (95-98); ABG PCO2 42 mmHg (35-45); ABG PH 7.28 pH Units (7.32-7.45); ABG PO2 110 mmHg (85-104); ABG TCO2 21 mEq/L (20-26); Blood Gas Modality ASSIST CONTROL; Blood Gas PEEP 5 cm H2O; Blood Gas Respiration Rate 16; Blood Gas VT 430 cc
[2018-07-27] MEDS: methylPREDNISolone 125 MG/2 ML VIAL IVP SCH ×3 (08:45→23:33)
[2018-07-27] MEDS: Piperacillin/Tazobactam 3.375 GM in 0.9 % Sodium Chloride Mini Bag 100 ML IVPB SCH ×3 (08:45→23:37)
[2018-07-27] MEDS: Chlorhexidine Rinse 15 ML MOUTHWASH MM SCH ×2 (08:45→20:32)
[2018-07-27] MEDS: Levofloxacin 750 MG/150 ML 750 MG/150 ML BAG IVPB SCH (08:45)
[2018-07-27] MEDS ORDERED: predniSONE 20 MG TABLET PO SCH (09:00)
[2018-07-27] MEDS: Albuterol 2.5 MG/3 ML NEBULIZER IH SCH ×2 (09:43→11:25)
[2018-07-27] MEDS ORDERED: *HR* Rocuronium Bromide 100 MG/10 ML VIAL IVC ONE (09:49)
[2018-07-27] MEDS ORDERED: *HR* Etomidate 20 MG/10 ML AMPUL IVP ONE (09:49)
[2018-07-27] MEDS ORDERED: *HR* Adenosine 12 MG/4 ML VIAL IV ONE (10:22)
[2018-07-27] MEDS: Ipratropium/Albuterol Neb 3 ML IH SCH ×4 (11:25→23:27)
[2018-07-27] MEDS: Folic Acid 1 MG in D5% in Water 50 ML IVPB SCH (12:09)
[2018-07-27] MEDS: Thiamine (B-1) 100 MG TABLET PO SCH (13:19)
--- NOTE | 2018-07-27 21:31 | Electrocardiograph Report ---
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
[2018-07-28] MEDS: FentaNYL (PF) 1,000 MCG in 0.9 % Sodium Chloride 80 ML IVC SCH (02:02)
[2018-07-28] MEDS: Ipratropium/Albuterol Neb 3 ML IH SCH ×6 (03:09→23:58)
[2018-07-28] MEDS: Artificial Tears SOLN 15 ML BOTTLE BOTH EYES SCH ×5 (04:00→19:34)
[2018-07-28] MEDS: Dexmedetomidine HCl 400 MCG/100 ML MLS IVC SCH ×2 (05:03→14:39)
[2018-07-28] MEDS: *HR* Heparin 5,000 UNIT/ML VIAL SQ SCH ×2 (05:05→17:37)
[2018-07-28] MEDS: Pantoprazole 40 MG VIAL IVP SCH (05:05)
[2018-07-28 05:08] LABS: ABG Base Excess -1 mEq/L (-2 to 3); ABG HCO3 26 mEq/L (21-27); ABG Oxygen Saturation 96 % (95-98); ABG PCO2 51 mmHg (35-45); ABG PH 7.31 pH Units (7.32-7.45); ABG PO2 87 mmHg (85-104); ABG TCO2 27 mEq/L (20-26); Blood Gas Modality ASSIST CONTROL; Blood Gas PEEP 5 cm H2O; Blood Gas Respiration Rate 16; Blood Gas VT 430 cc
--- NOTE | 2018-07-28 07:14 | Pulmonology Progress Note ---
<ChrisBereket W - Last Filed: 07/28/18 12:16> Date of Encounter: 07/28/18 Objective PUL Vital signs: Last Vital Signs Temp 98.5 F 07/28/18 11:00 Pulse 114 07/28/18 12:00 Resp 19 07/28/18 12:00 BP 158/95 07/28/18 12:00 Pulse Ox 97 07/28/18 12:00 Ventilator Settings Ventilator Settings: Ventilator Settings, Last 8 Hours Ventilator Tidal Volume 430 Setting Ventilator Tidal Volume 430 Setting Ventilator Tidal Volume 430 Setting Ventilator Tidal Volume 430 Setting Ventilator Respiratory Rate 16 Setting Ventilator Respiratory Rate 16 Setting Ventilator Respiratory Rate 16 Setting Ventilator Respiratory Rate 16 Setting Actual Respiratory Rate 21 Actual Respiratory Rate 18 Actual Respiratory Rate 16 Actual Respiratory Rate 16 Actual Respiratory Rate 16 Positive End Expiratory 5 Pressure Positive End Expiratory 5 Pressure Positive End Expiratory 5 Pressure Positive End Expiratory 5 Pressure Positive End Expiratory 5 Pressure Peak Inspiratory Airway 14 Pressure Peak Inspiratory Airway 14 Pressure Peak Inspiratory Airway 27 Pressure Peak Inspiratory Airway 26 Pressure Peak Inspiratory Airway 26 Pressure Results - Laboratory Findings CBC and BMP: 07/28/18 08:04 07/28/18 08:04 ABG ABG pH 7.31 pH Units (7.32-7.45) L 07/28/18 05:03 ABG pCO2 51 mmHg (35-45) H 07/28/18 05:03 ABG pO2 87 mmHg (85-104) 07/28/18 05:03 ABG O2 Saturation 96 % (95-98) 07/28/18 05:03 Abnormal lab findings: Abnormal lab results RBC 4.13 M/mcL (4.19-5.50) L 07/28/18 08:04 Plt Count 111 K/mcL (140-400) L 07/28/18 08:04 Lymphocytes # 0.4 K/mcL (0.6-4.6) L 07/28/18 08:04 ABG pH 7.31 pH Units (7.32-7.45) L 07/28/18 05:03 ABG pCO2 51 mmHg (35-45) H 07/28/18 05:03 ABG Total CO2 27 mEq/L (20-26) H 07/28/18 05:03 Sodium 133 mEq/L (136-145) L 07/28/18 08:04 Creatinine 0.63 mg/dL (0.70-1.30) L 07/28/18 08:04 Glucose 226 mg/dL (70-105) H 07/28/18 08:04 POC Glucose 195 mg/dL (70-99) H 07/27/18 23:26 Calcium 8.4 mg/dL (8.6-10.3) L 07/28/18 08:04 Venous Ioniz Calcium 1.08 mmol/L (1.15-1.35) L 07/28/18 08:19 Troponin I 0.06 ng/mL (< 0.04) H* 07/27/18 22:34 - Microbiology Findings Microbiology Findings: Microbiology, Last 48 Hours 07/27/18 06:42 Influenza Types A,B Antigen - Final Nasopharyngeal 07/27/18 04:32 Blood Culture - Preliminary Peripheral Venipuncture Culture is incubating and being continuously monitored for growth. Final report to follow. 07/27/18 04:32 Blood Culture - Preliminary Peripheral Venipuncture Culture is incubating and being continuously monitored for growth. Final report to follow. - Clinical Findings Intake & Output: Intake & Output 07/27/18 07/28/18 07/28/18 23:59 07:59 15:59 Intake Total 420.3 / 420.3 425.9 / 425.9 150 / 150 Output Total 425 / 425 375 / 375 300 / 300 Balance -4.7 / -4.7 50.9 / 50.9 -150 / -150 Weight 67.8 kg Consult Discharge Plan - Plan Referrals: NONE,PCP [Primary Care Provider] - - Attending Attestation I examined this patient and my medical decision-making was reviewed with the Resident Physician. I agree with the documented findings, disposition and treatment plan as described except to the extent set forth below. We independently had [id number] contact with the patient I spent 33 min of Critical Care time with this patient. It involved decision making of high complexity to assess, manipulate, and support vital organ system failure and/or to prevent further life threatening deterioration of the patient's condition. The time involved in the performance of separately reportable procedures was not counted toward critical care time. Patient seen and examined at bedside Labs, radiology, chart personally reviewed. Management was reviewed during multidisciplinary critical care rounds. LINER CHECKER: Remains agitated but able to follow simple commands Ativan as needed for agitation and will continue low dose Precedex Pulm: Acute on chronic hypoxic hypercapnic respiratory said failure acceptable gas exchange today and patient was liberated from the vent unfortunately had stridor after the event and this is very concerning for need for repeat intubation however administration of racemic epinephrine and glucocorticoid along with albuterol improved patient is now tolerating BiPAP with acceptable work of breathing and gas exchange however could decompensate requiring reintub ation Cards: Blood pressure monitored and stable GI: GI prophylaxis has been given while on vent Nutrition: Nothing by mouth for now Renal: UOP Monitored, Cont to Trend sCr and monitor Electrolytes. ID: Antibiotics D escalated Heme/Onc: DVT prophylaxis given Endo: Glucose Monitored Integ/MSK: Skin Care per routine ICU Nursing Protocol to prevent ulcers. Lines: All lines examined without evidence of infection : Dispo: Monitor in ICU for possible need of reintubation CODE: Full code <Sebas Penasergei P - Last Filed: 07/28/18 13:28> Date of Encounter: 07/28/18 Time of Encounter: 10:00 Assessment and Plan (1) Acute respiratory failure with hypoxia and hypercapnia Current Visit: Yes Status: Acute * Pt with COPD chronic smoker without home oxygen presented with signficant wheezing and work of breathing upon arrival, * Patient was intubated as he was increasingly hypoxic despite BiPAP, IV steroid, nebulizer * Patient was on CPAP trail since early this morning , patient was extubated and put on BIPAP * He is on minimal dose of Precedex for agitation. * Chest x-ray showed only COAD changes without obvious infection, total white cell count normal. * ABG : Primary chronic respiratory acidosis Ph 7.31, Hco3 26, Pco2 44, [id number], Cl 99, Na 132 * Viral respiratory panel, blood culture, sputum culture awaited * MRSA nasal swab negative * Zosyn and Levaquin was started empirically * He is on albuterol and DuoNeb nebulizer, IV steroid, oxygen. (2) Acute exacerbation of chronic obstructive airways disease Current Visit: Yes Status: Acute * He is a chronic patient of COPD without home oxygen * He is chronic smoker and under medication for COPD, prednisone 40 and Symbicort inhaler * Increased shortness of breath with hypoxia and hypercapnia might be related to exacerbation of COPD ? triggered by infection He is on IV antibiotic; Zosyn and Levaquin, IV Solu Medrol, albuterol and DuoNeb nebulization for bronchospasms * He was extubated today and put on Bipap. * Respiratory viral panel awaited, sputum culture awaited * MRSA nasal swab negative * We will evaluate with check x-ray tomorrow (3) Elevated troponin level Current Visit: Yes Status: Acute * The patient has elevated troponin, 0.16, 0.05 * We have ordered time troponin and we will closely monitor the lab result * Recent EKG does not show any ST or T elevation * He is on gambling monitor * We will evaluate with 12 lead EKG again. (4) Hyponatremia Current Visit: No Status: Acute * The pt has low serum sodium level ; 130, repeat test shows 133 * We will closely monitor and repeat BMP today. (5) Alcohol abuse Current Visit: Yes Status: Acute * The patient is chronic or chronic patient, step multiple admission for alcohol abuse * He is on IV thiamine, folic acid (6) DVT prophylaxis Current Visit: Yes Status: Acute * The patient is on DVT prophylaxis * Heparin SQ Subjective Principal diagnosis: COPD, acute on chronic respiratory failure Interval history: He is 57 year old male with history of alcohol abuse, COPD who presents the emergency department with complaints of respiratory distress. Patient is not on home oxygen . The patient was not significantly hypoxic but was significantly tachycardic, hypertensive and tach. He was unable to tolerate attempts of managing his COPD exacerbation including 2 nebs, methylprednisolone and BiPAP. He was was intubated for increased respiratory distress. He was started on a propofol and fentanyl drip for sedation at ED . The patient was transferred to ICU for further workup and management. Today during my visit, the patient was on CPAP trial, sedation dose was cutting down since yesterday & he was getting minimal dose of precedex. ABG showed pr imary respiratory acidosis, Ph; 7131, PCO2 51, bicarbonate 26. vitals were stable : respiration 18/m blood pressure 143/92/afebrile. We decided to extubate him, after extubation he was struggling for breathing with high flow oxygen and a lot of expiratory wheezes. He was given IV Solu Medrol and nebulization and getting more comfortable. We will closely monitor his respiratory status and ABG. Objective PUL Vital signs: Last Vital Signs Temp 97.6 F 07/28/18 03:00 Pulse 103 07/28/18 07:00 Resp 18 07/28/18 07:00 BP 143/92 07/28/18 07:00 Pulse Ox 97 07/28/18 07:00 General appearance: appears uncomfortable Eyes: nonicteric ENT: oropharynx dry Neck: supple Effort: mildly labored Auscultation: bilateral: diminished breath sounds, wheezes, rales Cardiovascular: regular rate and rhythm Gastrointestinal: normoactive bowel sounds, soft, non-tender, non-distended Extremities: no cyanosis, no edema, no clubbing, pink and warm Musculoskeletal: no deformities non-focal exam, pupils equal and round, CN II-XII normal, motor strength normal and symmetric Ventilator Settings Ventilator Settings: Ventilator Settings, Last 8 Hours Ventilator Tidal Volume 430 Setting Ventilator Tidal Volume 430 Setting Ventilator Tidal Volume 430 Setting Ventilator Tidal Volume 430 Setting Ventilator Tidal Volume 430 Setting Ventilator Tidal Volume 430 Setting Ventilator Tidal Volume 430 Setting Ventilator Tidal Volume 430 Setting Ventilator Tidal Volume 430 Setting Ventilator Tidal Volume 430 Setting Ventilator Tidal Volume 430 Setting Ventilator Tidal Volume 430 Setting Ventilator Respiratory Rate 16 Setting Ventilator Respiratory Rate 16 Setting Ventilator Respiratory Rate 16 Setting Ventilator Respiratory Rate 16 Setting Ventilator Respiratory Rate 16 Setting Ventilator Respiratory Rate 16 Setting Ventilator Respiratory Rate 16 Setting Ventilator Respiratory Rate 16 Setting Ventilator Respiratory Rate 16 Setting Ventilator Respiratory Rate 16 Setting Ventilator Respiratory Rate 16 Setting Ventilator Respiratory Rate 16 Setting Actual Respiratory Rate 18 Actual Respiratory Rate 16 Actual Respiratory Rate 16 Actual Respiratory Rate 16 Actual Respiratory Rate 19 Actual Respiratory Rate 16 Actual Respiratory Rate 17 Actual Respiratory Rate 16 Actual Respiratory Rate 17 Actual Respiratory Rate 17 Actual Respiratory Rate 17 Actual Respiratory Rate 19 Positive End Expiratory 5 Pressure Positive End Expiratory 5 Pressure Positive End Expiratory 5 Pressure Positive End Expiratory 5 Pressure Positive End Expiratory 5 Pressure Positive End Expiratory 5 Pressure Positive End Expiratory 5 Pressure Positive End Expiratory 5 Pressure Positive End Expiratory 5 Pressure Positive End Expiratory 5 Pressure Positive End Expiratory 5 Pressure Positive End Expiratory 5 Pressure Peak Inspiratory Airway 14 Pressure Peak Inspiratory Airway 27 Pressure Peak Inspiratory Airway 26 Pressure Peak Inspiratory Airway 26 Pressure Peak Inspiratory Airway 20 Pressure Peak Inspiratory Airway 28 Pressure Peak Inspiratory Airway 26 Pressure Peak Inspiratory Airway 12 Pressure Peak Inspiratory Airway 16 Pressure Peak Inspiratory Airway 14 Pressure Peak Inspiratory Airway 15 Pressure Peak Inspiratory Airway 17 Pressure Results - Laboratory Findings CBC and BMP: 07/28/18 08:04 07/28/18 08:04 ABG ABG pH 7.31 pH Units (7.32-7.45) L 07/28/18 05:03 ABG pCO2 51 mmHg (35-45) H 07/28/18 05:03 ABG pO2 87 mmHg (85-104) 07/28/18 05:03 ABG O2 Saturation 96 % (95-98) 07/28/18 05:03 Abnormal lab findings: Abnormal lab results RBC 3.92 M/mcL (4.19-5.50) L 07/27/18 07:47 Hgb 12.7 g/dL (12.9-16.9) L 07/27/18 07:47 Hct 36.8 % (37.5-50.1) L 07/27/18 07:47 Plt Count 118 K/mcL (140-400) L 07/27/18 07:47 Lymphocytes # 0.4 K/mcL (0.6-4.6) L 07/27/18 07:47 ABG pH 7.31 pH Units (7.32-7.45) L 07/28/18 05:03 ABG pCO2 51 mmHg (35-45) H 07/28/18 05:03 ABG Total CO2 27 mEq/L (20-26) H 07/28/18 05:03 Sodium 132 mEq/L (136-145) L 07/27/18 04:32 Carbon Dioxide 21 mEq/L (23-29) L 07/27/18 04:32 Creatinine 0.67 mg/dL (0.70-1.30) L 07/27/18 04:32 POC Glucose 195 mg/dL (70-99) H 07/27/18 23:26 Calculated Osmolality 273 (280-300) L 07/27/18 04:32 Calcium 7.8 mg/dL (8.6-10.3) L 07/27/18 04:32 Venous Ioniz Calcium 0.94 mmol/L (1.15-1.35) L 07/27/18 04:55 Troponin I 0.06 ng/mL (< 0.04) H* 07/27/18 22:34 - Microbiology Findings Microbiology Findings: Microbiology, Last 48 Hours 07/27/18 06:42 Influenza Types A,B Antigen - Final Nasopharyngeal 07/27/18 04:32 Blood Culture - Preliminary Peripheral Venipuncture Culture is incubating and being continuously monitored for growth. Final report to follow. 07/27/18 04:32 Blood Culture - Preliminary Peripheral Venipuncture Culture is incubating and being continuously monitored for growth. Final report to follow. - Clinical Findings Intake & Output: Intake & Output 07/27/18 07/27/18 07/28/18 15:59 23:59 07:59 Intake Total 546.2 / 546.2 420.3 / 420.3 425.9 / 425.9 Output Total 425 / 425 425 / 425 175 / 175 Balance 121.2 / 121.2 -4.7 / -4.7 250.9 / 250.9 Weight 67.8 kg
[2018-07-28 08:22] LABS: VBG Ionized Calcium 1.08 mmol/L (1.15-1.35)
[2018-07-28 08:27] LABS: Basophils % 0.1 %; Hematocrit 40.4 % (37.5-50.1); Immature Granulocytes % 0.7 % (0-4); Lymphocytes # 0.4 K/mcL (0.6-4.6); Lymphocytes % 4.8 %; Mean Corpuscular HGB Conc 32.2 g/dL (31.6-35.5); Mean Corpuscular Hemoglobin 31.5 pg (28.0-33.3); Mean Corpuscular Volume 97.8 fL (83.0-100.0); Mean Platelet Volume 10.2 fL (9.4-12.4); Monocytes # 0.3 K/mcL (0.0-1.3); Monocytes % 2.9 %; Neutrophils # 8.4 K/mcL (1.6-8.9); Platelet Count 111 K/mcL (140-400); Red Blood Count 4.13 M/mcL (4.19-5.50); Red Cell Distribution Width 12.8 % (11.5-14.5); Segmented Neutrophils % 91.5 %
--- NOTE | 2018-07-28 08:35 | Electrocardiograph Report ---
[place] [id number] Test Date: 2018-07-27 Pat Name: Christopher Martínez Department: 109 Room: [facility] Gender: M Scale Installer: : 1960 Requested By: Miranda Dasilva Order Number: [id number] Reading MD: Yen Santiago Measurements Intervals [place] Rate: 109 P: IA: 0 QRS: 71 QRSD: 82 T: 185 QT: 300 QTc: 364 Interpretive Statements SUPRAVENTRICULAR TACHYCARDIA NONSPECIFIC ST-WAVE ABNORMALITY Electronically Signed On 07-28-2018 8:33:28 EDT by Yen Santiago
[2018-07-28 08:38] LABS: Magnesium 2.4 mg/dL (1.6-2.6); Phosphorous 2.8 mg/dL (2.7-4.5)
[2018-07-28 08:39] LABS: BUN/Creatinine Ratio 25 (6-26); Blood Urea Nitrogen 16 mg/dL (6-20); Calcium 8.4 mg/dL (8.6-10.3); Carbon Dioxide 23 mEq/L (23-29); Chloride 101 mEq/L (98-107); Glucose 226 mg/dL (70-105); Osmolality,Calculated 284 (280-300); Potassium 4.2 mEq/L (3.5-5.1); Sodium 133 mEq/L (136-145); eGFR For Non-African Americans > 60 (> 60)
[2018-07-28] MEDS ORDERED: *HR* LORazepam 2 MG/ML VIAL IVP ONE ×2 (08:47→12:41)
[2018-07-28] MEDS ORDERED: *HR* LORazepam 2 MG/ML VIAL ONE (08:49)
[2018-07-28] MEDS: Chlorhexidine Rinse 15 ML MOUTHWASH MM SCH ×2 (09:01→19:34)
[2018-07-28] MEDS: methylPREDNISolone 125 MG/2 ML VIAL IVP SCH ×3 (09:01→23:54)
[2018-07-28] MEDS: Levofloxacin 750 MG/150 ML 750 MG/150 ML BAG IVPB SCH (09:02)
[2018-07-28] MEDS ORDERED: Albuterol 2.5 MG/3 ML NEBULIZER ONE ×2 (09:15→09:18)
[2018-07-28] MEDS ORDERED: Racepinephrine Neb 0.5 ML VIAL IH ONE (09:15)
[2018-07-28] MEDS ORDERED: methylPREDNISolone 125 MG/2 ML VIAL IVP ONE (09:28)
[2018-07-28] MEDS ORDERED: Albuterol 2.5 MG/3 ML NEBULIZER IH ONE (09:30)
[2018-07-28] MEDS: Racepinephrine Neb 0.5 ML VIAL IH ONE ×2 (09:30→12:00)
[2018-07-28] MEDS ORDERED: Albuterol Neb 7.5 MG, Sodium Chloride for inhalation 12 ML IH SCH (09:30)
[2018-07-28] MEDS ORDERED: Dextrose Gel 15 GM/37.5 ML TUBE PO PRN ×8 (09:45→12:19)
[2018-07-28] MEDS ORDERED: D5% in Water 1,000 ML IVC PRN ×4 (09:45→12:19)
[2018-07-28] MEDS ORDERED: *HR* Dextrose 50 % in Water (Syg) 50 ML SYRINGE IVP PRN ×4 (09:45→12:19)
[2018-07-28] MEDS: Thiamine (B-1) 100 MG TABLET PO SCH (10:06)
[2018-07-28] MEDS: Folic Acid 1 MG in D5% in Water 50 ML IVPB SCH (10:50)
[2018-07-28] MEDS ORDERED: Insulin LISPRO 300 UNITS/3 ML VIAL SQ SCH (11:30)
[2018-07-28] MEDS: Insulin LISPRO 300 UNITS/3 ML VIAL SQ SCH ×2 (13:10→17:38)
[2018-07-28] MEDS ORDERED: Albuterol 2.5 MG/3 ML NEBULIZER IH PRN (14:47)
[2018-07-28] MEDS: *HR* Metoprolol 5 MG/5 ML VIAL IVP PRN (16:35)
[2018-07-28] MEDS: *HR* LORazepam 2 MG/ML VIAL IVP PRN (22:05)
[2018-07-29] MEDS: Artificial Tears SOLN 15 ML BOTTLE BOTH EYES SCH ×3 (00:05→07:58)
[2018-07-29] MEDS: Dexmedetomidine HCl 400 MCG/100 ML MLS IVC SCH ×3 (01:40→19:46)
[2018-07-29] MEDS: *HR* LORazepam 2 MG/ML VIAL IVP PRN ×4 (03:34→20:05)
[2018-07-29] MEDS: Ipratropium/Albuterol Neb 3 ML IH SCH ×6 (03:46→23:19)
[2018-07-29] MEDS: *HR* Heparin 5,000 UNIT/ML VIAL SQ SCH ×2 (05:15→17:22)
[2018-07-29] MEDS: Pantoprazole 40 MG VIAL IVP SCH (05:15)
[2018-07-29 06:06] LABS: VBG Ionized Calcium 1.17 mmol/L (1.15-1.35)
[2018-07-29 06:12] LABS: Basophils % 0.1 %; Hematocrit 41.6 % (37.5-50.1); Hemoglobin 13.5 g/dL (12.9-16.9); Immature Granulocytes % 1.2 % (0-4); Lymphocytes # 0.4 K/mcL (0.6-4.6); Mean Corpuscular HGB Conc 32.5 g/dL (31.6-35.5); Mean Corpuscular Hemoglobin 32.1 pg (28.0-33.3); Mean Corpuscular Volume 98.8 fL (83.0-100.0); Monocytes # 0.3 K/mcL (0.0-1.3); Monocytes % 3.2 %; Neutrophils # 7.7 K/mcL (1.6-8.9); Platelet Count 119 K/mcL (140-400); Red Blood Count 4.21 M/mcL (4.19-5.50); Red Cell Distribution Width 13.3 % (11.5-14.5); Segmented Neutrophils % 90.5 %
[2018-07-29] MEDS: *HR* Metoprolol 5 MG/5 ML VIAL IVP PRN ×2 (06:16→21:40)
[2018-07-29 06:27] LABS: BUN/Creatinine Ratio 47 (6-26); Blood Urea Nitrogen 22 mg/dL (6-20); Carbon Dioxide 24 mEq/L (23-29); Chloride 103 mEq/L (98-107); Glucose 155 mg/dL (70-105); Magnesium 2.4 mg/dL (1.6-2.6); Osmolality,Calculated 292 (280-300); Phosphorous 3.4 mg/dL (2.7-4.5); Potassium 4.7 mEq/L (3.5-5.1); Sodium 138 mEq/L (136-145); eGFR For Non-African Americans > 60 (> 60)
[2018-07-29] MEDS: Levofloxacin 750 MG/150 ML 750 MG/150 ML BAG IVPB SCH (07:57)
[2018-07-29] MEDS: methylPREDNISolone 125 MG/2 ML VIAL IVP SCH (07:57)
[2018-07-29] MEDS: Chlorhexidine Rinse 15 ML MOUTHWASH MM SCH ×2 (07:59→20:40)
[2018-07-29] MEDS: Thiamine (B-1) 100 MG TABLET PO SCH (07:59)
[2018-07-29] MEDS: Insulin LISPRO 300 UNITS/3 ML VIAL SQ SCH ×3 (08:05→16:15)
--- NOTE | 2018-07-29 08:06 | Pulmonology Progress Note ---
<Aylin Montes - Last Filed: 07/29/18 18:08> Date of Encounter: 07/29/18 Time of Encounter: 08:06 Assessment and Plan (1) Acute respiratory failure with hypoxia and hypercapnia Current Visit: Yes Status: Acute Acute respiratory failure d/t acute exacerbation of COPD Intubated 07/27 after neb x 2, solumedrol, and BiPAP failed to control respiratory status Successfully extubated yesterday to BiPAP Repeat CXR this morning showed emphysema and central congestion, no acute pulmonary abnormalities Required racemic epinephrine for stridor and respiratory distress yesterday--none required overnight Continues to be tachycardic HR 100-110's and tachypneic RR > 20 Plan: Continue BiPAP as tolerated by patient Cont PRN albuterol neb Continued SRINI duoneb and budesonide Decrease solumedrol to 40mg IV Q8H (2) Acute exacerbation of chronic obstructive airways disease Current Visit: Yes Status: Acute 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 Etiology of exacerbation unclear, no definite signs of infectious process Empiric abx zosyn and levaquin started 07/27 Zosyn d/c'd after 1 day Plan as above Continue levaquin through 07/31 Palliative consult placed (3) Hypertension Current Visit: Yes Status: Chronic SBP 120's to 170's and DBP 90's over last 24 hours Plan: Clonidine 0.1 mg PO x 1 dose, then clonidine 0.1 mg patch Continue hydralazine 10 mg IVP Q3H PRN Continue cardiac monitoring Qualifiers: Hypertension type: essential hypertension Qualified Code(s): I10 - Essential (primary) hypertension (4) Tachycardia Current Visit: Yes Status: Acute Improved since admission, HR 100-110's today Suspect related to anxiety from alcohol and/or benzodiazepine withdrawal Troponin peaked at 0.16, trended down to 0.06 EKG showed sinus tachycardia without evidence of ischemia Continue cardiac monitoring Anticipate clonidine will also help decrease HR Continue CIWA protocol, precedex gtt (5) Alcohol abuse Current Visit: Yes Status: Acute History of alcohol abuse IV banana bag with folic acid, thiamine ordered PO CIWA protocol in place Continue precedex gtt SW consulted (6) Thrombocytopenia Current Visit: Yes Status: Acute Platelets 200 on admission, appears stable in 110's at this time Possibly related to liver damage as result of EtOH abuse No acute bleeding observed Continue to monitor (7) DVT prophylaxis Current Visit: Yes Status: Acute Heparin SubQ Subjective Principal diagnosis: COPD, acute on chronic respiratory failure Interval history: Seen and examined this morning at bedside. Patient sleepy but following commands on examination. Extubated yesterday to BiPAP. Appears somewhat uncomfortable and anxious with increased respiratory effort. Racemic epinephrine not required overnight. Objective PUL Vital signs: Last Vital Signs Temp 96.4 F L 07/29/18 04:41 Pulse 101 07/29/18 07:24 Resp 24 07/29/18 07:00 BP 136/94 07/29/18 07:00 Pulse Ox 97 07/29/18 07:00 General appearance: lethargic, appears uncomfortable Eyes: nonicteric ENT: oropharynx dry Neck: supple Effort: very labored Auscultation: left: diminished breath sounds, right: wheezes Cardiovascular: other (sinus tachycardia on monitor) Gastrointestinal: normoactive bowel sounds, soft, non-tender, non-distended Integumentary: normal Extremities: no cyanosis, no edema, pulses normal, no ischemia or petechiae non-focal exam, pupils equal and round, CN II-XII normal, other (oriented to person, place, time) anxious Results - Laboratory Findings CBC and BMP: 07/29/18 05:54 07/29/18 05:54 ABG ABG pH 7.31 pH Units (7.32-7.45) L 07/28/18 05:03 ABG pCO2 51 mmHg (35-45) H 07/28/18 05:03 ABG pO2 87 mmHg (85-104) 07/28/18 05:03 ABG O2 Saturation 96 % (95-98) 07/28/18 05:03 Abnormal lab findings: Abnormal lab results Plt Count 119 K/mcL (140-400) L 07/29/18 05:54 Lymphocytes # 0.4 K/mcL (0.6-4.6) L 07/29/18 05:54 ABG pH 7.31 pH Units (7.32-7.45) L 07/28/18 05:03 ABG pCO2 51 mmHg (35-45) H 07/28/18 05:03 ABG Total CO2 27 mEq/L (20-26) H 07/28/18 05:03 BUN 22 mg/dL (6-20) H 07/29/18 05:54 Creatinine 0.47 mg/dL (0.70-1.30) L 07/29/18 05:54 BUN/Creatinine Ratio 47 (6-26) H 07/29/18 05:54 Glucose 155 mg/dL (70-105) H 07/29/18 05:54 POC Glucose 130 mg/dL (70-99) H 07/28/18 23:10 Troponin I 0.06 ng/mL (< 0.04) H* 07/27/18 22:34 - Microbiology Findings Microbiology Findings: Microbiology, Last 48 Hours 07/27/18 06:42 Influenza Types A,B Antigen - Final Nasopharyngeal 07/27/18 04:32 Blood Culture - Preliminary Peripheral Venipuncture Culture is incubating and being continuously monitored for growth. Final report to follow. 07/27/18 04:32 Blood Culture - Preliminary Peripheral Venipuncture Culture is incubating and being continuously monitored for growth. Final report to follow. - Clinical Findings Intake & Output: Intake & Output 07/28/18 07/29/18 07/29/18 23:59 07:59 15:59 Intake Total 342.3 / 342.3 88.8 / 88.8 Output Total 250 / 250 475 / 475 Balance 92.3 / 92.3 -386.2 / -386.2 Weight 65.3 kg Consult Discharge Plan - Plan Referrals: NONE,PCP [Primary Care Provider] - <Milo Larios - Last Filed: 07/30/18 08:13> Date of Encounter: 07/30/18 Objective PUL Vital signs: Last Vital Signs Temp 97.9 F 07/29/18 08:00 Pulse 100 07/29/18 09:00 Resp 18 07/29/18 09:00 BP 157/98 07/29/18 09:00 Pulse Ox 99 07/29/18 09:00 Results - Laboratory Findings CBC and BMP: 07/30/18 05:19 07/30/18 04:37 ABG ABG pH 7.31 pH Units (7.32-7.45) L 07/28/18 05:03 ABG pCO2 51 mmHg (35-45) H 07/28/18 05:03 ABG pO2 87 mmHg (85-104) 07/28/18 05:03 ABG O2 Saturation 96 % (95-98) 07/28/18 05:03 Abnormal lab findings: Abnormal lab results Plt Count 119 K/mcL (140-400) L 07/29/18 05:54 Lymphocytes # 0.4 K/mcL (0.6-4.6) L 07/29/18 05:54 ABG pH 7.31 pH Units (7.32-7.45) L 07/28/18 05:03 ABG pCO2 51 mmHg (35-45) H 07/28/18 05:03 ABG Total CO2 27 mEq/L (20-26) H 07/28/18 05:03 BUN 22 mg/dL (6-20) H 07/29/18 05:54 Creatinine 0.47 mg/dL (0.70-1.30) L 07/29/18 05:54 BUN/Creatinine Ratio 47 (6-26) H 07/29/18 05:54 Glucose 155 mg/dL (70-105) H 07/29/18 05:54 POC Glucose 130 mg/dL (70-99) H 07/28/18 23:10 Troponin I 0.06 ng/mL (< 0.04) H* 07/27/18 22:34 - Microbiology Findings Microbiology Findings: Microbiology, Last 48 Hours 07/27/18 06:42 Influenza Types A,B Antigen - Final Nasopharyngeal 07/27/18 04:32 Blood Culture - Preliminary Peripheral Venipuncture Culture is incubating and being continuously monitored for growth. Final report to follow. 07/27/18 04:32 Blood Culture - Preliminary Peripheral Venipuncture Culture is incubating and being continuously mo nitored for growth. Final report to follow. - Clinical Findings Intake & Output: Intake & Output 07/28/18 07/29/18 07/29/18 23:59 07:59 15:59 Intake Total 342.3 / 342.3 88.8 / 88.8 Output Total 250 / 250 475 / 475 Balance 92.3 / 92.3 -386.2 / -386.2 Weight 65.3 kg - Attending Attestation I examined this patient and my medical decision-making was reviewed with the Resident Physician. I agree with the documented findings, disposition and treatment plan as described except to the extent set forth below. Patient seen and examined. Labs, radiology, chart personally reviewed. Agree with resident's history and physical, assessment, plan with following comments: VIDEO INTERN: Patient follows commands, He looks anxious and needs to be on multivit and precedex. Banana bag. Pulmonary: Acceptable oxygenation and ventilation, however he is at risk for re-intubation and he is tolerating his NIV for now. Palliative to see patient. Cardiovascular: HTN been treated with Hydralazine. He will need pain control and start him on clonidine GI: Nutrition per dietary and GI prophylaxis per routine. Nutrition is a problem because of his respiratory Heme: DVT prophylaxis per routine. Thrombocytopnea which is chronic ID: Continue antibiotics and plan to de-escalation Renal; urine out put and renal funtion reviewed Endorcine: blood glucose is monitored. Lower his systemic Lines: all lines checked and no evidence of infections Skin: skin care to prevent pressure ulcers per nursing routine care
[2018-07-29 10:01] LABS: Estimated Average Glucose 111 mg/dl; Hemoglobin A1C 5.5 %
[2018-07-29] MEDS: Folic Acid 1 MG in D5% in Water 50 ML IVPB SCH (10:12)
[2018-07-29] MEDS ORDERED: MVI, adult with vitamin K 10 ML in 0.9 % Sodium Chloride 1,000 ML IVC ONE (10:58)
[2018-07-29] MEDS ORDERED: cloNIDine HCl 0.1 MG TABLET PO ONE (10:58)
[2018-07-29] MEDS ORDERED: CloNIDine Patch 0.1 MG PATCH (WEEKLY) TD SCH (11:00)
[2018-07-29] MEDS ORDERED: *HR* LORazepam 2 MG/ML VIAL IVP PRN (11:05)
[2018-07-29] MEDS: Budesonide Neb 0.5 MG/2 ML IH SCH ×2 (11:16→20:21)
[2018-07-29] MEDS ORDERED: VITAMIN K IVC ONE (11:30)
[2018-07-29] MEDS ORDERED: MVI IVC ONE (11:30)
[2018-07-29] MEDS ORDERED: SODIUM CHLORIDE 0.9% IVC ONE (11:30)
[2018-07-29] MEDS ORDERED: FOLIC ACID IVC ONE (11:30)
--- NOTE | 2018-07-29 13:42 | Palliative - Consult Note ---
<AlexandrfrantznandaBruce jaime - Last Filed: 07/29/18 13:39> Date of Encounter: 07/29/18 Time of Encounter: 13:30 - Assessment and Plan (1) Goals of care, counseling/discussion Current Visit: Yes Status: Acute Assessment and plan: Was able to discuss goals of care of patient. He was alert and oriented when consulted at bedside. Patient is aware of his medical condition and the prognosis that it entails. We were able to ascertain whether he wanted intubation or not, for which he clearly expressed no desire to be intubated. In terms of his resuscitation status, patient did not answer to our questions, however there is a documented and witnessed conversation from his nurse which states that the patient did not want to be resuscitated and he made this decision while being completely lucid, alert, and oriented. Patient also expressed that he would like his daughter to be in charge of medical decisions. We do not have her name or contact information, however we have his father's contact info (Bandar: [phone]) whom we will call to speak with and obtain further information. (2) Acute respiratory failure with hypoxia and hypercapnia Current Visit: Yes Status: Acute Assessment and plan: Acute respiratory failure d/t acute exacerbation of COPD. Intubated 07/27 after neb x 2, solumedrol, and BiPAP failed to control respiratory status. Successfully extubated yesterday to BiPAP Repeat CXR this morning showed emphysema and central congestion, no acute pulmonary abnormalities. - Patient to be continued on BiPAP, IV steroids, and scheduled duonebs. IH steroids, and albuterol. (3) Acute exacerbation of chronic obstructive airways disease Current Visit: Yes Status: Acute Assessment and plan: Patient at end stage COPD. Not on home oxygen. Started on empiric antibiotics on 07/27. Currently on levaquin. - Plan is to continue levaquin through 07/31. - Fentayl 50 mcg IV Q4H PRN. (4) Hypertension Current Visit: Yes Status: Chronic Assessment and plan: SBP 120's to 170's and DBP 90's over last 24 hours. - On clonidine and hydralazine PRN. Qualifiers: Hypertension type: essential hypertension Qualified Code(s): I10 - Essential (primary) hypertension (5) Tachycardia Current Visit: Yes Status: Acute Assessment and plan: HR 100-110's today. Suspect related to anxiety from alcohol and/or benzodiazepine withdrawal. Troponin peaked at 0.16, trended down to 0.06. EKG showed sinus tachycardia without evidence of ischemia - On cardiac monitoring. - On CIWA protocol. (6) Alcohol abuse Current Visit: Yes Status: Acute Assessment and plan: History of alcohol abuse. - CIWA protocol in place. Palliative-CN HPI - Data of Consult Consult date: 07/29/18 Requesting Physician: Eldon Mcintyre MD Primary Care Provider: PCP NONE - Consult Narrative Palliative Care/Comfort Measures: Palliative care Reason for consult: Code status, Goals of care of end stage COPD History of present illness: Mr. Martínez is a 57 year old male with history of alcohol abuse, COPD who presented the emergency department on 07/27/18 with complaints of respiratory distress. Patient was not on home oxygen. On presentation, he was significantly tachycardic, hypertensive and tachypneic. ABGs showed Primary chronic respiratory acidosis with secondary metabolic acidosis. Was unable to tolerating breathing treatments, IV steroids, and BiPAP so he was ultimately intubated. He was started on a Versed and fentanyl drip for sedation given his heavy alcohol use and abuse and high tolerance to sedating medications. He was started on empiric antibiotics on 07/27. He was subsequently extubated on 07/28 and placed on BiPAP. When seen today, patient was alert and oriented and was able to answer most of our questions. He admitted to considerable SOB. He denied any chest, abdominal pain, nausea, or vomiting. He did admit to being very anxious and was requesting medication to calm him down. He did note that he was very fatigued due to being SOB. He requested a DNI for his code status, but was unable to specify to us at the time about his resuscitation status. CC: Eldon Mcintyre MD - Time Spent with Patient Time: Total time spent is greater than 50% in coordination of care (as documented) at patient's floor/unit and/or counseling patient: Past Med Surg Social Fam HX - Past Medical History Medical history: COPD Psychiatric history: other - Past Surgical History Surgical History: orthopedic, other - Social History Smoking Status: Light tobacco smoker Smokeless Tobacco Status: No Alcohol use: heavy, recent Drug use: prescription drug abuse - Family History Mother Living Status: Still Living Hx Family Cardiac Disorders: Yes (high blood pressure) Hx Family Endocrine Disorder: Yes (DM) Hx Family Neurologic Disorders: Yes (dementia) Father Living Status: Still Living Medications and Allergies No Known Home Drugs 07/29/18 [History] Allergy/AdvReac Type Severity Reaction Status Date / Time No Known Allergies Allergy Verified 01/31/18 12:05 - Constitutional Constitutional ROS PAL: chills, fatigue - Cardiovascular Cardiovascular ROS: dyspnea on exertion, no chest pain, no edema, no leg edema - Respiratory Respiratory: dyspnea on exertion, wheezing, stridor, pain on inspiration - Gastrointestinal Gastrointestinal: no abdominal pain, no nausea, no vomiting - Musculoskeletal Musculoskeletal ROS IM: myalgias Additional comments: Knee pain b/l - Psychiatric Psychiatric general PM: anxiety Palliative Care-Exam - Constitutional Vitals: Temp Pulse Resp BP Pulse Ox 97.9 F 109 28 150/87 98 07/29/18 08:00 07/29/18 13:00 07/29/18 13:00 07/29/18 13:00 07/29/18 13:00 General appearance: Present: average body habitus - Eye Eye exam: Present: PERRL. Absent: periorbital swelling, scleral icterus - Respiratory Respiratory exam: Present: accessory muscle use, chest wall tenderness, decreased breath sounds, wheezes, tachypnea - Cardiovascular Cardiovascular exam: Present: RRR, +S1, +S2. Absent: +S3, +S4, tachycardia - Expanded Cardiovascular Exam Peripheral pulses: 2+: Radial (L), Radial (R), Posterior Tibialis (L), Posterior Tibialis (R), Dorsalis Pedis (L) PM, Dorsalis Pedis (R) PM - GI/Abdominal Exam GI/Abdominal exam: Present: normal bowel sounds, soft. Absent: distended, guarding, mass, rebound, tenderness - Extremities Exam Extremities exam: Present: calf tenderness (L calf fenderness. + [place]'s on L. No signs of erythema or swelling in LE b/l.). Absent: joint swelling, pedal edema - Neurological Exam Neurological exam: Present: alert, altered, oriented X3, no focal deficits. Absent: facial droop, speech deficit - Psychiatric Psychiatric exam: Present: anxious - Skin Skin exam: Present: intact, normal color. Absent: cyanosis, diaphoretic, erythema, rash Internal Medicine - CN: Reslt - Labs CBC & Chem 7: 07/29/18 05:54 07/29/18 05:54 Labs: Short CBC 07/29/18 Range/Units 05:54 WBC 8.5 (4.3-11.1) K/mcL Hgb 13.5 (12.9-16.9) g/dL Hct 41.6 (37.5-50.1) % Plt Count 119 L (140-400) K/mcL Neutrophils # 7.7 (1.6-8.9) K/mcL BMP 07/29/18 05:54 Sodium 138 Potassium 4.7 Chloride 103 Carbon Dioxide 24 BUN 22 H Creatinine 0.47 L Glucose 155 H Calcium 9.0 - ABG Interpretation ABG results: ABG ABG pH 7.31 pH Units (7.32-7.45) L 07/28/18 05:03 ABG pCO2 51 mmHg (35-45) H 07/28/18 05:03 ABG pO2 87 mmHg (85-104) 07/28/18 05:03 ABG O2 Saturation 96 % (95-98) 07/28/18 05:03 - Impressions Impressions Chest X-Ray 07/29/18 04:00 IMPRESSION: 1. Interval extubation. No acute pulmonary abnormality. 2. Emphysema. D/ / Deyvi Lennon MD / Deyvi Lennon MD Interpreting Provider: Deyvi Lennon MD Consult Discharge Plan - Plan Referrals: NONE,PCP [Primary Care Provider] - Palliative Quality Palliative Quality: Screen for Code Status: Yes, Screen for Goals of Care: Yes, Screen for Pain: Yes, If Pain Regimen Started, Initiate Bowel Regimen: Yes, Screen for Nausea/Vomitting: Yes Code Status: 07/29/18 11:39 Resuscitation Status: Active [RES] Routine Comment: Resuscitation Status: [id number] <Dorothy Sloan - Last Filed: 07/29/18 15:25> Date of Encounter: 07/29/18 Palliative-CN HPI - Data of Consult Requesting Physician: Eldon Mcintyre MD Primary Care Provider: PCP NONE - Consult Narrative History of present illness: Mr. Martínez is a 57 year old male CC: Eldon Mcintyre MD - Time Spent with Patient Time: Total time spent is greater than 50% in coordination of care (as documented) at patient's floor/unit and/or counseling patient: Palliative Care-Exam - Constitutional Vitals: Temp Pulse Resp BP Pulse Ox 98.6 F 93 16 169/102 98 07/29/18 15:00 07/29/18 15:01 07/29/18 15:00 07/29/18 15:00 07/29/18 15:00 Internal Medicine - CN: Reslt - Labs CBC & Chem 7: 07/29/18 05:54 07/29/18 05:54 Labs: Short CBC 07/29/18 Range/Units 05:54 WBC 8.5 (4.3-11.1) K/mcL Hgb 13.5 (12.9-16.9) g/dL Hct 41.6 (37.5-50.1) % Plt Count 119 L (140-400) K/mcL Neutrophils # 7.7 (1.6-8.9) K/mcL BMP 07/29/18 05:54 Sodium 138 Potassium 4.7 Chloride 103 Carbon Dioxide 24 BUN 22 H Creatinine 0.47 L Glucose 155 H Calcium 9.0 - ABG Interpretation ABG results: ABG ABG pH 7.31 pH Units (7.32-7.45) L 07/28/18 05:03 ABG pCO2 51 mmHg (35-45) H 07/28/18 05:03 ABG pO2 87 mmHg (85-104) 07/28/18 05:03 ABG O2 Saturation 96 % (95-98) 07/28/18 05:03 - Impressions Impressions Chest X-Ray 07/28/18 04:00 IMPRESSION: 1. Nasogastric tube folded in the distal esophagus. Tip is in the distal esophagus and proximal side-port is in the gastric cardia. Advancement by 8 cm is recommended. 2. Endotracheal tube in satisfactory position. 3. No lung consolidation. D/ / 07/28/2018 08:38:19 Martin Holland MD / [facility] Interpreting Provider: Martin Holland MD Chest X-Ray 07/29/18 04:00 IMPRESSION: 1. Interval extubation. No acute pulmonary abnormality. 2. Emphysema. D/ / Deyvi Lennon MD / Deyvi Lennon MD Interpreting Provider: Deyvi Lennon MD - Attending Attestation I performed a history and physical examination of the patient and discussed his management with the resident. I reviewed the residents note and agree with the documented findings and plan of care, except as follow: This is a 57 years old male with history of alcohol abuse advanced COPD that presented to the emergency department on 07/27/18 with respiratory distress and was intubated for respiratory failure. Patient was successively extubated but now BiPAP dependent. Palliative care consult for goals of care discussion. At the time of exam patient appears to be in respiratory distress, on BiPAP, using accessory muscles, diffused wheezing, speaking in short sentences Attempted goals of care discussion with patient, he is having much difficulty with the conversation. Per chart review patient had a conversation with nurse and ICU resident about CODE STATUS, and wanted to be DNR comfort care arrest and DNI. At this time, patient confirmed he did not want to be intubated, but was somewhat confused as to the resuscitation effort. When asked about an alternate decision maker, patient designated his daughter as his decision maker, however he asked us to call and speak with his father Kj. Attempted to reach patient's father at the number provided [phone], unable to reach. Patient to be continued on current level of care, palliative care will continue to follow for further goals of care discussion. Palliative Quality Code Status: 07/29/18 11:39 Resuscitation Status: Active [RES] Routine Comment: Resuscitation Status: [id number]
[2018-07-29] MEDS: MethylPREDNISolone 40 MG/ML VIAL IVP SCH (15:19)
[2018-07-29] MEDS ORDERED: Racepinephrine Neb 0.5 ML VIAL IH ONE ×2 (19:54→19:55)
[2018-07-29] MEDS: *HR* FentaNYL (PF) 100 MCG/2 ML VIAL IVP PRN (20:13)
[2018-07-30] MEDS: MethylPREDNISolone 40 MG/ML VIAL IVP SCH ×4 (00:05→23:37)
[2018-07-30] MEDS ORDERED: *HR* Metoprolol 5 MG/5 ML VIAL IVP ONE (00:56)
[2018-07-30] MEDS: Dexmedetomidine HCl 400 MCG/100 ML MLS IVC SCH ×5 (01:06→20:07)
[2018-07-30] MEDS ORDERED: *HR* Labetalol 20 MG/4 ML SYRINGE IVP ONE (03:02)
[2018-07-30] MEDS: Ipratropium/Albuterol Neb 3 ML IH SCH ×6 (03:40→23:23)
[2018-07-30] MEDS: *HR* FentaNYL (PF) 100 MCG/2 ML VIAL IVP PRN ×4 (03:52→21:32)
[2018-07-30 04:52] LABS: VBG Ionized Calcium 1.02 mmol/L (1.15-1.35)
[2018-07-30] MEDS: Pantoprazole 40 MG VIAL IVP SCH (05:03)
[2018-07-30] MEDS: *HR* Heparin 5,000 UNIT/ML VIAL SQ SCH ×2 (05:03→17:10)
[2018-07-30 05:12] LABS: BUN/Creatinine Ratio 57 (6-26); Blood Urea Nitrogen 26 mg/dL (6-20); Calcium 8.7 mg/dL (8.6-10.3); Carbon Dioxide 23 mEq/L (23-29); Chloride 107 mEq/L (98-107); Glucose 120 mg/dL (70-105); Magnesium 2.4 mg/dL (1.6-2.6); Osmolality,Calculated 294 (280-300); Phosphorous 2.8 mg/dL (2.7-4.5); Potassium 4.9 mEq/L (3.5-5.1); Sodium 139 mEq/L (136-145); eGFR For Non-African Americans > 60 (> 60)
[2018-07-30 05:39] LABS: Basophils % 0.1 %; Hematocrit 42.4 % (37.5-50.1); Hemoglobin 13.6 g/dL (12.9-16.9); Immature Granulocytes % 1.2 % (0-4); Lymphocytes # 0.8 K/mcL (0.6-4.6); Lymphocytes % 9.2 %; Mean Corpuscular HGB Conc 32.1 g/dL (31.6-35.5); Mean Corpuscular Hemoglobin 31.9 pg (28.0-33.3); Mean Corpuscular Volume 99.3 fL (83.0-100.0); Mean Platelet Volume 10.9 fL (9.4-12.4); Monocytes # 0.5 K/mcL (0.0-1.3); Monocytes % 6.4 %; Neutrophils # 7.1 K/mcL (1.6-8.9); Platelet Count 109 K/mcL (140-400); Red Blood Count 4.27 M/mcL (4.19-5.50); Red Cell Distribution Width 13.5 % (11.5-14.5); Segmented Neutrophils % 83.1 %
[2018-07-30] MEDS: Budesonide Neb 0.5 MG/2 ML IH SCH ×2 (07:50→20:31)
--- NOTE | 2018-07-30 07:51 | Pulmonology Progress Note ---
<Milo Larios M - Last Filed: 07/30/18 09:55> Date of Encounter: 07/30/18 Objective PUL Vital signs: Last Vital Signs Temp 98.0 F 07/30/18 08:55 Pulse 95 07/30/18 07:00 Resp 23 07/30/18 07:00 BP 162/91 07/30/18 07:00 Pulse Ox 100 07/30/18 07:00 Results - Laboratory Findings CBC and BMP: 07/30/18 05:19 07/30/18 04:37 ABG ABG pH 7.31 pH Units (7.32-7.45) L 07/28/18 05:03 ABG pCO2 51 mmHg (35-45) H 07/28/18 05:03 ABG pO2 87 mmHg (85-104) 07/28/18 05:03 ABG O2 Saturation 96 % (95-98) 07/28/18 05:03 Abnormal lab findings: Abnormal lab results Plt Count 109 K/mcL (140-400) L 07/30/18 05:19 ABG pH 7.31 pH Units (7.32-7.45) L 07/28/18 05:03 ABG pCO2 51 mmHg (35-45) H 07/28/18 05:03 ABG Total CO2 27 mEq/L (20-26) H 07/28/18 05:03 BUN 26 mg/dL (6-20) H 07/30/18 04:37 Creatinine 0.46 mg/dL (0.70-1.30) L 07/30/18 04:37 BUN/Creatinine Ratio 57 (6-26) H 07/30/18 04:37 Glucose 120 mg/dL (70-105) H 07/30/18 04:37 POC Glucose 118 mg/dL (70-99) H 07/29/18 23:25 Venous Ioniz Calcium 1.02 mmol/L (1.15-1.35) L 07/30/18 04:50 Troponin I 0.06 ng/mL (< 0.04) H* 07/27/18 22:34 - Clinical Findings Intake & Output: Intake & Output 07/29/18 07/30/18 07/30/18 23:59 07:59 15:59 Intake Total 1110.2 / 1110.2 200 / 200 Output Total 200 / 200 250 / 250 150 / 150 Balance 910.2 / 910.2 -50 / -50 -150 / -150 Weight 67.1 kg Consult Discharge Plan - Plan Referrals: NONE,PCP [Primary Care Provider] - - Attending Attestation I examined this patient and my medical decision-making was reviewed with the Resident Physician. I agree with the documented findings, disposition and treatment plan as described except to the extent set forth below. Patient seen and examined. Labs, radiology, chart personally reviewed. Agree with resident's history and physical, assessment, plan with following comments: [employer]: Patient follows commands, Pulmonary: Acceptable oxygenation and ventilation and is tolerating noninvasive ventilation. Cardiovascular: Hypertension and he has received multiple agents to control his blood pressure, however I feel his chronic pain is playing an important role and will target his pain and hopefully better control will make his blood pressure under better control GI: Nutrition per dietary and GI prophylaxis per routine Heme: DVT prophylaxis per routine ID: Continue antibiotics and plan to de-escalation Renal; urine out put and renal funtion reviewed Endorcine: blood glucose is monitored Lines: all lines checked and no evidence of infections Skin: skin care to prevent pressure ulcers per nursing routine care Prognosis is poor and palliative care is following. At this time he will stay in the ICU and may transfer him to a palliative bed <Aylin Montes - Last Filed: 07/30/18 21:26> Date of Encounter: 07/30/18 Time of Encounter: 07:10 Assessment and Plan (1) Acute respiratory failure with hypoxia and hypercapnia Current Visit: Yes Status: Acute Acute respiratory failure d/t acute exacerbation of COPD Intubated 07/27 after neb x 2, solumedrol, and BiPAP failed to control respiratory status Successfully extubated 07/28 to BiPAP Repeat CXR showed emphysema and central congestion, no acute pulmonary abnormalities Required racemic epinephrine for stridor and respiratory distress yesterday--none required overnight Continues to be tachycardic HR 90-100s and tachypneic RR > 20 Plan: Continue BiPAP as tolerated by patient Cont PRN albuterol neb Continued SRINI duoneb and budesonide Continue solumedrol to 40mg IV Q8H (2) Acute exacerbation of chronic obstructive airways disease Current Visit: Yes Status: Acute 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 Etiology of exacerbation unclear, no definite signs of infectious process Empiric abx zosyn and levaquin started 07/27 Zosyn d/c'd after 1 day Plan as above Continue levaquin through 07/31 (day 4 of 5) Palliative consult placed (3) Hypertension Current Visit: Yes Status: Chronic SBP 120's to 170's and DBP 90's over last 24 hours may be exacerbated by chronic pain Plan: Clonidine 0.1 mg PO x 1 dose, then clonidine 0.1 mg patch Continue hydralazine 10 mg IVP Q3H PRN Will also add norco to attempt to control pain Continue cardiac monitoring Qualifiers: Hypertension type: essential hypertension Qualified Code(s): I10 - Ess ential (primary) hypertension (4) Tachycardia Current Visit: Yes Status: Acute Improved since admission, HR 100-110's today Suspect related to anxiety from alcohol and/or benzodiazepine withdrawal Troponin peaked at 0.16, trended down to 0.06 EKG showed sinus tachycardia without evidence of ischemia Continue cardiac monitoring Anticipate clonidine will also help decrease HR Continue CIWA protocol, precedex gtt (5) Alcohol abuse Current Visit: Yes Status: Acute History of alcohol abuse IV banana bag with folic acid, thiamine ordered PO CIWA protocol in place Continue precedex gtt SW consulted (6) Thrombocytopenia Current Visit: Yes Status: Acute Platelets 200 on admission, appears stable in 110's at this time Possibly related to liver damage as result of EtOH abuse No acute bleeding observed Continue to monitor (7) DVT prophylaxis Current Visit: Yes Status: Acute Heparin SubQ Subjective Principal diagnosis: COPD, acute on chronic respiratory failure Interval history: Seen and examined this morning at bedside. Patient sleepy but following commands on examination. Extubated successfully to BiPAP. Appears somewhat uncomfortable. Objective PUL Vital signs: Last Vital Signs Temp 97.5 F L 07/30/18 04:04 Pulse 95 07/30/18 07:00 Resp 23 07/30/18 07:00 BP 162/91 07/30/18 07:00 Pulse Ox 100 07/30/18 07:00 General appearance: no acute distress, alert Eyes: nonicteric ENT: oropharynx moist Neck: supple Effort: normal, mildly labored Auscultation: bilateral: diminished breath sounds Cardiovascular: regular rate and rhythm, other (mildly tachycardic) Gastrointestinal: soft, non-tender, non-distended Integumentary: normal Extremities: no cyanosis, no edema, no clubbing, pink and warm non-focal exam mood appropriate, affect normal Results - Laboratory Findings CBC and BMP: 07/30/18 05:19 07/30/18 04:37 ABG ABG pH 7.31 pH Units (7.32-7.45) L 07/28/18 05:03 ABG pCO2 51 mmHg (35-45) H 07/28/18 05:03 ABG pO2 87 mmHg (85-104) 07/28/18 05:03 ABG O2 Saturation 96 % (95-98) 07/28/18 05:03 Abnormal lab findings: Abnormal lab results Plt Count 109 K/mcL (140-400) L 07/30/18 05:19 ABG pH 7.31 pH Units (7.32-7.45) L 07/28/18 05:03 ABG pCO2 51 mmHg (35-45) H 07/28/18 05:03 ABG Total CO2 27 mEq/L (20-26) H 07/28/18 05:03 BUN 26 mg/dL (6-20) H 07/30/18 04:37 Creatinine 0.46 mg/dL (0.70-1.30) L 07/30/18 04:37 BUN/Creatinine Ratio 57 (6-26) H 07/30/18 04:37 Glucose 120 mg/dL (70-105) H 07/30/18 04:37 POC Glucose 118 mg/dL (70-99) H 07/29/18 23:25 Venous Ioniz Calcium 1.02 mmol/L (1.15-1.35) L 07/30/18 04:50 Troponin I 0.06 ng/mL (< 0.04) H* 07/27/18 22:34 - Clinical Findings Intake & Output: Intake & Output 07/29/18 07/29/18 07/30/18 15:59 23:59 07:59 Intake Total 279.1 / 279.1 1110.2 / 1110.2 100 / 100 Output Total 300 / 300 200 / 200 250 / 250 Balance -20.9 / -20.9 910.2 / 910.2 -150 / -150 Weight 67.1 kg
[2018-07-30] MEDS: Thiamine (B-1) 100 MG TABLET PO SCH (08:24)
[2018-07-30] MEDS: Insulin LISPRO 300 UNITS/3 ML VIAL SQ SCH ×3 (08:24→17:09)
[2018-07-30] MEDS: Chlorhexidine Rinse 15 ML MOUTHWASH MM SCH ×2 (08:25→19:30)
[2018-07-30] MEDS: Levofloxacin 750 MG/150 ML 750 MG/150 ML BAG IVPB SCH (08:26)
[2018-07-30] MEDS: *HR* Metoprolol 5 MG/5 ML VIAL IVP PRN ×2 (10:43→18:24)
[2018-07-30] MEDS ORDERED: 0.9 % Sodium Chloride 250 ML ONE (11:01)
[2018-07-30] MEDS: *HR* LORazepam 2 MG/ML VIAL IVP PRN ×3 (11:32→21:32)
[2018-07-30] MEDS ORDERED: *HR* OxyCODONE/APAP 5/325 TABLET PO PRN (11:47)
--- NOTE | 2018-07-30 14:55 | Palliative Progress Note ---
Date of Encounter: 07/30/18 Time of Encounter: 14:00 - Assessment and plan (1) COPD exacerbation Current Visit: No Status: Acute Assessment and plan: Continues treatment with steroids/bronchodilators/ supportive oxygen/ bipap. A ppears stable. (2) Alcohol withdrawal syndrome Current Visit: No Status: Chronic Assessment and plan: Remains on CIWA protocol Qualifiers: Complication of substance-induced condition: uncomplicated Qualified Code(s): F10.230 - Alcohol dependence with withdrawal, uncomplicated (3) Acute respiratory failure with hypoxia and hypercapnia Current Visit: Yes Status: Acute (4) Goals of care, counseling/discussion Current Visit: Yes Status: Acute Assessment and plan: Patient is alert, however, does not really engage or answer with multiple questions. Some difficulty communicating on bipap. D/W pt with Dr. Larios. Will need family here for discussion. Will revisit later today and see if they have come back to hospital. - Time Spent With Patient Total time spent is greater than 50% in coordination of care (as documented) at patient's floor/unit and/or counseling patient: - Subjective Interval history: Patient awake, resting quietly on bipap. Vitals stable. He is oriented to person and place, needs reoriented to time and situation. No family present, primary nurse states they were here earlier. Denies pain or discomfort, states "don't feel good" but does not elaborate. Assisted with brief bipap removal to give drink of water. - Constitutional Vitals: Abnormal lab results Plt Count 109 K/mcL (140-400) L 07/30/18 05:19 ABG pH 7.31 pH Units (7.32-7.45) L 07/28/18 05:03 ABG pCO2 51 mmHg (35-45) H 07/28/18 05:03 ABG Total CO2 27 mEq/L (20-26) H 07/28/18 05:03 BUN 26 mg/dL (6-20) H 07/30/18 04:37 Creatinine 0.46 mg/dL (0.70-1.30) L 07/30/18 04:37 BUN/Creatinine Ratio 57 (6-26) H 07/30/18 04:37 Glucose 120 mg/dL (70-105) H 07/30/18 04:37 POC Glucose 118 mg/dL (70-99) H 07/29/18 23:25 Venous Ioniz Calcium 1.02 mmol/L (1.15-1.35) L 07/30/18 04:50 Troponin I 0.06 ng/mL (< 0.04) H* 07/27/18 22:34 General appearance: Present: no acute distress - Respiratory Additional comments: Remains on bipap. Breath sounds very diminished throughout all lung verduzco. - Cardiovascular Cardiovascular exam: Present: +S1, +S2 - GI/Abdominal GI/Abdominal exam: Present: distended, normal bowel sounds, soft - Additional comments: Schaefer with dk yellow urine - Extremities Exam Extremities exam: Present: normal capillary refill - Neurological Exam Neurological exam: Present: alert, strengths equal and symetr throughout Additional comments: Oriented to name and place. Follows commands. MENSAH - Skin Skin exam: Present: dry, pallor, warm Palliative Quality Palliative Quality: Screen for Code Status: Yes, Screen for Goals of Care: Yes, Screen for Pain: Yes, If Pain Regimen Started, Initiate Bowel Regimen: Yes, Screen for Nausea/Vomitting: Yes Code Status: 07/29/18 11:39 Resuscitation Status: Active [RES] Routine Comment: Resuscitation Status: [id number] - Labs CBC & Chem 7: 07/30/18 05:19 07/30/18 04:37 Labs: Laboratory Results - last 24 hr 07/29/18 07/29/18 07/29/18 04:11 07:51 11:46 WBC RBC Hgb Hct MCV MCH MCHC RDW Plt Count MPV Immature Gran % Seg Neutrophils % Lymphocytes % Monocytes % Eosinophils % Basophils % Neutrophils # Lymphocytes # Monocytes # Eosinophils # Basophils # Sodium Potassium Chloride Carbon Dioxide BUN Creatinine Est GFR ( Amer) Est GFR (Non-Af Amer) BUN/Creatinine Ratio Glucose POC Glucose 144 H 141 H 115 H Calculated Osmolality Calcium Venous Ioniz Calcium Phosphorus Magnesium Specimen Rejected 07/29/18 07/29/18 07/29/18 16:15 19:47 23:25 WBC RBC Hgb Hct MCV MCH MCHC RDW Plt Count MPV Immature Gran % Seg Neutrophils % Lymphocytes % Monocytes % Eosinophils % Basophils % Neutrophils # Lymphocytes # Monocytes # Eosinophils # Basophils # Sodium Potassium Chloride Carbon Dioxide BUN Creatinine Est GFR ( Amer) Est GFR (Non-Af Amer) BUN/Creatinine Ratio Glucose POC Glucose 116 H 115 H 118 H Calculated Osmolality Calcium Venous Ioniz Calcium Phosphorus Magnesium Specimen Rejected 07/30/18 07/30/18 07/30/18 04:37 04:37 04:50 WBC RBC Hgb Hct MCV MCH MCHC RDW Plt Count MPV Immature Gran % Seg Neutrophils % Lymphocytes % Monocytes % Eosinophils % Basophils % Neutrophils # Lymphocytes # Monocytes # Eosinophils # Basophils # Sodium 139 Potassium 4.9 Chloride 107 Carbon Dioxide 23 BUN 26 H Creatinine 0.46 L Est GFR ( Amer) > 60 Est GFR (Non-Af Amer) > 60 BUN/Creatinine Ratio 57 H Glucose 120 H POC Glucose Calculated Osmolality 294 Calcium 8.7 Venous Ioniz Calcium 1.02 L Phosphorus 2.8 Magnesium 2.4 Specimen Rejected Volume 07/30/18 05:19 WBC 8.5 RBC 4.27 Hgb 13.6 Hct 42.4 MCV 99.3 MCH 31.9 MCHC 32.1 RDW 13.5 Plt Count 109 L MPV 10.9 Immature Gran % 1.2 Seg Neutrophils % 83.1 Lymphocytes % 9.2 Monocytes % 6.4 Eosinophils % 0.0 Basophils % 0.1 Neutrophils # 7.1 Lymphocytes # 0.8 Monocytes # 0.5 Eosinophils # 0.0 Basophils # 0.0 Sodium Potassium Chloride Carbon Dioxide BUN Creatinine Est GFR ( Amer) Est GFR (Non-Af Amer) BUN/Creatinine Ratio Glucose POC Glucose Calculated Osmolality Calcium Venous Ioniz Calcium Phosphorus Magnesium Specimen Rejected - ABG Interpretation ABG results: ABG ABG pH 7.31 pH Units (7.32-7.45) L 07/28/18 05:03 ABG pCO2 51 mmHg (35-45) H 07/28/18 05:03 ABG pO2 87 mmHg (85-104) 07/28/18 05:03 ABG O2 Saturation 96 % (95-98) 07/28/18 05:03 Consult Discharge Plan - Plan Referrals: NONE,PCP [Primary Care Provider] -
[2018-07-30 15:20] LABS: VBG Ionized Calcium 1.09 mmol/L (1.15-1.35)
--- NOTE | 2018-07-30 16:00 | Electrocardiograph Report ---
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
[2018-07-31] MEDS: Dexmedetomidine HCl 400 MCG/100 ML MLS IVC SCH ×4 (03:20→23:20)
[2018-07-31] MEDS: Ipratropium/Albuterol Neb 3 ML IH SCH ×5 (04:35→19:33)
[2018-07-31 04:56] LABS: Basophils % 0.3 %; Hematocrit 40.2 % (37.5-50.1); Hemoglobin 13.1 g/dL (12.9-16.9); Immature Granulocytes % 0.7 % (0-4); Lymphocytes # 0.6 K/mcL (0.6-4.6); Lymphocytes % 10.6 %; Mean Corpuscular HGB Conc 32.6 g/dL (31.6-35.5); Mean Corpuscular Volume 98.3 fL (83.0-100.0); Mean Platelet Volume 9.9 fL (9.4-12.4); Monocytes # 0.3 K/mcL (0.0-1.3); Monocytes % 4.6 %; Neutrophils # 4.9 K/mcL (1.6-8.9); Platelet Count 120 K/mcL (140-400); Red Blood Count 4.09 M/mcL (4.19-5.50); Red Cell Distribution Width 13.6 % (11.5-14.5); Segmented Neutrophils % 83.8 %
[2018-07-31 05:15] LABS: BUN/Creatinine Ratio 53 (6-26); Blood Urea Nitrogen 25 mg/dL (6-20); Calcium 9.2 mg/dL (8.6-10.3); Carbon Dioxide 27 mEq/L (23-29); Chloride 104 mEq/L (98-107); Glucose 143 mg/dL (70-105); Osmolality,Calculated 301 (280-300); Potassium 4.4 mEq/L (3.5-5.1); Sodium 142 mEq/L (136-145); eGFR For Non-African Americans > 60 (> 60)
[2018-07-31] MEDS: *HR* Heparin 5,000 UNIT/ML VIAL SQ SCH ×2 (05:22→17:07)
[2018-07-31] MEDS: *HR* FentaNYL (PF) 100 MCG/2 ML VIAL IVP PRN ×3 (05:23→20:01)
[2018-07-31] MEDS: Pantoprazole 40 MG VIAL IVP SCH (05:27)
[2018-07-31] MEDS: *HR* LORazepam 2 MG/ML VIAL IVP PRN ×3 (05:30→20:17)
[2018-07-31] MEDS: Budesonide Neb 0.5 MG/2 ML IH SCH ×2 (07:30→19:33)
[2018-07-31] MEDS: Chlorhexidine Rinse 15 ML MOUTHWASH MM SCH ×2 (08:54→20:18)
[2018-07-31] MEDS: MethylPREDNISolone 40 MG/ML VIAL IVP SCH ×3 (08:54→23:20)
[2018-07-31] MEDS: Thiamine (B-1) 100 MG TABLET PO SCH (08:54)
[2018-07-31] MEDS: Levofloxacin 750 MG/150 ML 750 MG/150 ML BAG IVPB SCH (08:54)
--- NOTE | 2018-07-31 09:11 | Pulmonology Progress Note ---
<RheaMilo wyatt M - Last Filed: 07/31/18 09:28> Date of Encounter: 07/31/18 Objective PUL Vital signs: Last Vital Signs Temp 97.3 F L 07/31/18 09:05 Pulse 105 07/31/18 05:56 Resp 21 07/31/18 07:30 BP 133/79 07/31/18 05:56 Pulse Ox 98 07/31/18 07:30 Results - Laboratory Findings CBC and BMP: 07/31/18 04:20 07/31/18 04:20 ABG ABG pH 7.31 pH Units (7.32-7.45) L 07/28/18 05:03 ABG pCO2 51 mmHg (35-45) H 07/28/18 05:03 ABG pO2 87 mmHg (85-104) 07/28/18 05:03 ABG O2 Saturation 96 % (95-98) 07/28/18 05:03 Abnormal lab findings: Abnormal lab results RBC 4.09 M/mcL (4.19-5.50) L 07/31/18 04:20 Plt Count 120 K/mcL (140-400) L 07/31/18 04:20 ABG pH 7.31 pH Units (7.32-7.45) L 07/28/18 05:03 ABG pCO2 51 mmHg (35-45) H 07/28/18 05:03 ABG Total CO2 27 mEq/L (20-26) H 07/28/18 05:03 BUN 25 mg/dL (6-20) H 07/31/18 04:20 Creatinine 0.47 mg/dL (0.70-1.30) L 07/31/18 04:20 BUN/Creatinine Ratio 53 (6-26) H 07/31/18 04:20 Glucose 143 mg/dL (70-105) H 07/31/18 04:20 POC Glucose 133 mg/dL (70-99) H 07/30/18 23:56 Calculated Osmolality 301 (280-300) H 07/31/18 04:20 Venous Ioniz Calcium 1.09 mmol/L (1.15-1.35) L 07/30/18 15:17 Troponin I 0.06 ng/mL (< 0.04) H* 07/27/18 22:34 - Clinical Findings Intake & Output: Intake & Output 07/30/18 07/31/18 07/31/18 23:59 07:59 15:59 Intake Total 310 / 310 100 / 100 Output Total 450 / 450 200 / 200 125 / 125 Balance -140 / -140 -100 / -100 -125 / -125 Consult Discharge Plan - Plan Referrals: NONE,PCP [Primary Care Provider] - - Attending Attestation I examined this patient and my medical decision-making was reviewed with the Resident Physician. I agree with the documented findings, disposition and treatment plan as described except to the extent set forth below. Patient seen and examined. Labs, radiology, chart personally reviewed. 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 Cardiovascular: Hypertension is under better control with treating case chronic pain GI: Nutrition per dietary and GI prophylaxis per routine Heme: DVT prophylaxis per routine ID: Continue antibiotics and plan to de-escalation Renal; urine out put and renal funtion reviewed Endorcine: blood glucose is monitored Lines: all lines checked and no evidence of infections Skin: skin care to prevent pressure ulcers per nursing routine care Unfortunately with his poor prognosis and still requiring Precedex drip noninvasive ventilation he will remain in the ICU at this time and palliative care is continuing following. <Aylin Montes - Last Filed: 07/31/18 21:25> Date of Encounter: 07/31/18 Time of Encounter: 08:00 Assessment and Plan (1) Acute respiratory failure with hypoxia and hypercapnia Current Visit: Yes Status: Acute Acute respiratory failure d/t acute exacerbation of COPD Intubated 07/27 after neb x 2, solumedrol, and BiPAP failed to control respiratory status Successfully extubated 07/28 to BiPAP Repeat CXR showed emphysema and central congestion, no acute pulmonary abnormalities Continues to be tachycardic HR 100-110s and tachypneic RR 20's Levaquin 5-day course completed today Respiratory status and overall prognosis remain poor Plan: Continue BiPAP as tolerated by patient Cont bronchodilators, nebulizers Continue solumedrol to 40mg IV Q8H (2) Acute exacerbation of chronic obstructive airways disease Current Visit: Yes Status: Acute 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 Etiology of exacerbation unclear, no definite signs of infectious process Empiric abx zosyn and levaquin started 07/27 Zosyn d/c'd after 1 day Levaquin 5-day course completed today Family meeting this afternoon to clarify patient's code status Plan as above Palliative is following Roxanol sublingual added by palliative for patient's dyspnea and for pain control measures (3) Hypertension Current Visit: Yes Status: Chronic Continues to be difficult to control Suspect it's related to patient's chronic pain and anxiety Plan: Pain control--Percocet 5/325 mg and roxanol PRN Continue clonidine 0.1 mg patch Continue hydralazine 10 mg IVP Q3H PRN Continue cardiac monitoring Qualifiers: Hypertension type: essential hypertension Qualified Code(s): I10 - Essential (primary) hypertension (4) Tachycardia Current Visit: Yes Status: Acute Suspect this is related to anxiety, chronic pain, and to his degree of respiratory effort Suspect gaining control of pain and anxiety, as above, will help PRN metoprolol available Continue cardiac monitoring (5) Alcohol abuse Current Visit: Yes Status: Acute Continue thiamine PO supplement CIWA protocol in place Continue precedex gtt (6) Thrombocytopenia Current Visit: Yes Status: Acute Platelet count appears stable in 110's-120 Platelets 200 on admission Possibly related to liver damage as result of EtOH abuse No acute bleeding observed Continue to monitor (7) DVT prophylaxis Current Visit: Yes Status: Acute Heparin SubQ Subjective Principal diagnosis: COPD, acute on chronic respiratory failure Interval history: Seen and examined this morning at bedside. Patient asleep at time of my exam. On review of nursing notes, patient was very short of breath overnight and was put back on BiPAP. Objective PUL Vital signs: Last Vital Signs Temp 97.3 F L 07/31/18 09:05 Pulse 105 07/31/18 05:56 Resp 21 07/31/18 07:30 BP 133/79 07/31/18 05:56 Pulse Ox 98 07/31/18 07:30 General appearance: lethargic, asleep, appears uncomfortable ENT: oropharynx moist Neck: supple Effort: very labored Auscultation: bilateral: diminished breath sounds (no rhonchi, respirations shallow) Cardiovascular: other (regular rhythm, HR 100-120's) Gastrointestinal: hypoactive bowel sounds, non-tender, other (abdomen tense d/t use of accessory muscles of respiration ) Integumentary: normal Extremities: no cyanosis, no clubbing, pink and warm, no ischemia or petechiae, edema (non-pitting pedal) Musculoskeletal: no deformities unable to assess due to mental status Results - Laboratory Findings CBC and BMP: 07/31/18 04:20 07/31/18 04:20 ABG ABG pH 7.31 pH Units (7.32-7.45) L 07/28/18 05:03 ABG pCO2 51 mmHg (35-45) H 07/28/18 05:03 ABG pO2 87 mmHg (85-104) 07/28/18 05:03 ABG O2 Saturation 96 % (95-98) 07/28/18 05:03 Abnormal lab findings: Abnormal lab results RBC 4.09 M/mcL (4.19-5.50) L 07/31/18 04:20 Plt Count 120 K/mcL (140-400) L 07/31/18 04:20 ABG pH 7.31 pH Units (7.32-7.45) L 07/28/18 05:03 ABG pCO2 51 mmHg (35-45) H 07/28/18 05:03 ABG Total CO2 27 mEq/L (20-26) H 07/28/18 05:03 BUN 25 mg/dL (6-20) H 07/31/18 04:20 Creatinine 0.47 mg/dL (0.70-1.30) L 07/31/18 04:20 BUN/Creatinine Ratio 53 (6-26) H 07/31/18 04:20 Glucose 143 mg/dL (70-105) H 07/31/18 04:20 POC Glucose 133 mg/dL (70-99) H 07/30/18 23:56 Calculated Osmolality 301 (280-300) H 07/31/18 04:20 Venous Ioniz Calcium 1.09 mmol/L (1.15-1.35) L 07/30/18 15:17 Troponin I 0.06 ng/mL (< 0.04) H* 07/27/18 22:34 - Clinical Findings Intake & Output: Intake & Output 07/30/18 07/31/18 07/31/18 23:59 07:59 15:59 Intake Total 310 / 310 100 / 100 Output Total 450 / 450 200 / 200 125 / 125 Balance -140 / -140 -100 / -100 -125 / -125
[2018-07-31] MEDS: Insulin LISPRO 300 UNITS/3 ML VIAL SQ SCH ×3 (09:13→16:10)
--- NOTE | 2018-07-31 11:20 | Palliative Progress Note ---
Date of Encounter: 07/31/18 Time of Encounter: 09:45 - Assessment and plan (1) Goals of care, counseling/discussion Current Visit: Yes Status: Acute Assessment and plan: Patient lacks orientation to situation. Desires his daughter to make decisions on his behalf. Family meeting set with father today at 1 pm, will obtain patient 's daughters contact information from patient's father Otus. Patient reports living home alone and only able to make himself soup prior to admission. Reports breathing is comparable to breathing prior to admission. Is unable to recall intubation, explained this is common due to sedation. Waxes and wanes on decision for CODE STATUS; will require family support of all medical decisions at this time, as patient is lacking ability to understand situation. [id number]: Conducted family meeting with patient's father (Bandar), two uncles, and aunt regarding goals of care. Expressed concern over continued dyspnea and minimal improvement over hospital stay. Family verbalized understanding. Aunt presented that she knows that this is not what Odilon would want. Patient's father expressed that Odilon has wanted to " for a while." Family confirmed no further intubation/CPR; CODE STATUS established as DNRCCA/DNI. Family interested in keeping patient comfortable. Patient does have a daughter whom was not present for meeting. Explained patient wanted daughter to be present and make decisions, should he not be able. Patient's father did not have contact information for daughter. Gave patient's father business card and requested he call back with his granddaughter Shannon's phone number, so we can touch base with her prior to moving forward. Bandar also mentioned needing to allow time for patient's foster siblings to come to bedside and visit if they desire. Palliative care to continue to work with family regarding decisions, plans to reconvene tomorrow. Dr. Seals and Chaplain Aranda present and participated in family meeting. (2) Chronic back pain Current Visit: Yes Status: Acute Assessment and plan: Patient c/o chronic back pain. Added Scheduled Percocet to help with back pain. Patient had ordered PRN but never received a dose. Potentially could help with pain and dyspnea. (3) COPD exacerbation Current Visit: No Status: Acute Assessment and plan: Continues treatment with steroids/bronchodilators, supportive oxygen, and BiPAP support. (4) Alcohol withdrawal syndrome Current Visit: No Status: Chronic Assessment and plan: [facility] protocol being utilized. Qualifiers: Complication of substance-induced condition: uncomplicated Qualified Code(s): F10.230 - Alcohol dependence with withdrawal, uncomplicated (5) Acute respiratory failure with hypoxia and hypercapnia Current Visit: Yes Status: Acute - Time Spent With Patient Total time spent is greater than 50% in coordination of care (as documented) at patient's floor/unit and/or counseling patient: - Subjective Interval history: Patient awake, lying in bed upon arrival for assessment. No family present at bedside. Primary RN Claudia Present. Patient hypertensive and noted dyspnea with breathing. Patient is oriented to person and place. Remains disoriented to time and situation. Reports chronic back pain, unable to rate on pain scale. Reports increased anxiety, denies taking anything for at home. Denies nausea and vomiting. - Constitutional Vitals: Abnormal lab results RBC 4.09 M/mcL (4.19-5.50) L 07/31/18 04:20 Plt Count 120 K/mcL (140-400) L 07/31/18 04:20 ABG pH 7.31 pH Units (7.32-7.45) L 07/28/18 05:03 ABG pCO2 51 mmHg (35-45) H 07/28/18 05:03 ABG Total CO2 27 mEq/L (20-26) H 07/28/18 05:03 BUN 25 mg/dL (6-20) H 07/31/18 04:20 Creatinine 0.47 mg/dL (0.70-1.30) L 07/31/18 04:20 BUN/Creatinine Ratio 53 (6-26) H 07/31/18 04:20 Glucose 143 mg/dL (70-105) H 07/31/18 04:20 POC Glucose 133 mg/dL (70-99) H 07/30/18 23:56 Calculated Osmolality 301 (280-300) H 07/31/18 04:20 Venous Ioniz Calcium 1.09 mmol/L (1.15-1.35) L 07/30/18 15:17 Troponin I 0.06 ng/mL (< 0.04) H* 07/27/18 22:34 General appearance: Present: cooperative, disheveled, mild distress, obese - Head Head exam: Present: atraumatic, normal inspection - Eye Eye exam: Present: normal appearance, PERRL. Absent: periorbital swelling, periorbital tenderness Pupils: Present: normal accommodation - ENT ENT exam: Present: mucous membranes moist, normal external ear exam - Neck Neck exam: Present: full ROM, normal inspection - Respiratory Respiratory exam: Present: accessory muscle use, decreased breath sounds, respiratory distress, rhonchi, wheezes - Cardiovascular Cardiovascular exam: Present: +S1, +S2, tachycardia - GI/Abdominal GI/Abdominal exam: Present: hypoactive bowel sounds, soft. Absent: guarding, tenderness - Rectal Rectal exam: Present: deferred - Extremities Exam Extremities exam: Present: normal inspection - Back Exam Back exam: Present: normal inspection - Neurological Exam Neurological exam: Present: alert, altered, strengths equal and symetr throughout. Absent: oriented X3 - Psychiatric Psychiatric exam: Present: anxious - Skin Skin exam: Present: dry, normal color, warm Palliative Quality Palliative Quality: Screen for Code Status: Yes, Screen for Goals of Care: Yes, Screen for Pain: Yes, If Pain Regimen Started, Initiate Bowel Regimen: Yes, Screen for Nausea/Vomitting: Yes Code Status: 07/29/18 11:39 Resuscitation Status: Active [RES] Routine Comment: Resuscitation Status: [id number] - Labs CBC & Chem 7: 07/31/18 04:20 07/31/18 04:20 Labs: Laboratory Results - last 24 hr 07/30/18 07/30/18 07/30/18 07:53 12:33 15:03 WBC RBC Hgb Hct MCV MCH MCHC RDW Plt Count MPV Immature Gran % Seg Neutrophils % Lymphocytes % Monocytes % Eosinophils % Basophils % Neutrophils # Lymphocytes # Monocytes # Eosinophils # Basophils # Sodium Potassium Chloride Carbon Dioxide BUN Creatinine Est GFR ( Amer) Est GFR (Non-Af Amer) BUN/Creatinine Ratio Glucose POC Glucose 127 H 136 H Calculated Osmolality Calcium Venous Ioniz Calcium Phosphorus 4.3 07/30/18 07/30/18 07/30/18 15:17 16:02 19:32 WBC RBC Hgb Hct MCV MCH MCHC RDW Plt Count MPV Immature Gran % Seg Neutrophils % Lymphocytes % Monocytes % Eosinophils % Basophils % Neutrophils # Lymphocytes # Monocytes # Eosinophils # Basophils # Sodium Potassium Chloride Carbon Dioxide BUN Creatinine Est GFR ( Amer) Est GFR (Non-Af Amer) BUN/Creatinine Ratio Glucose POC Glucose 119 H 119 H Calculated Osmolality Calcium Venous Ioniz Calcium 1.09 L Phosphorus 07/30/18 07/31/18 07/31/18 23:56 04:20 04:20 WBC 5.9 RBC 4.09 L Hgb 13.1 Hct 40.2 MCV 98.3 MCH 32.0 MCHC 32.6 RDW 13.6 Plt Count 120 L MPV 9.9 Immature Gran % 0.7 Seg Neutrophils % 83.8 Lymphocytes % 10.6 Monocytes % 4.6 Eosinophils % 0.0 Basophils % 0.3 Neutrophils # 4.9 Lymphocytes # 0.6 Monocytes # 0.3 Eosinophils # 0.0 Basophils # 0.0 Sodium 142 Potassium 4.4 Chloride 104 Carbon Dioxide 27 BUN 25 H Creatinine 0.47 L Est GFR ( Amer) > 60 Est GFR (Non-Af Amer) > 60 BUN/Creatinine Ratio 53 H Glucose 143 H POC Glucose 133 H Calculated Osmolality 301 H Calcium 9.2 Venous Ioniz Calcium Phosphorus - ABG Interpretation ABG results: ABG ABG pH 7.31 pH Units (7.32-7.45) L 07/28/18 05:03 ABG pCO2 51 mmHg (35-45) H 07/28/18 05:03 ABG pO2 87 mmHg (85-104) 07/28/18 05:03 ABG O2 Saturation 96 % (95-98) 07/28/18 05:03 Palliative Scale - Palliative Performance Scale How ambulatory is this patient?: Mainly sit / lie What is patient's level of activity and evidence of disease?: Unable hobby/housework, Significant disease Consult Discharge Plan - Plan Referrals: NONE,PCP [Primary Care Provider] -
[2018-07-31] MEDS: *HR* OxyCODONE/APAP 5/325 TABLET PO SCH ×3 (12:04→21:23)
[2018-07-31] MEDS: MORPHINE SUL Oral CONC 10 MG/0.5 ML ORAL.SYG SL PRN ×2 (16:02→21:21)
[2018-07-31] MEDS ORDERED: *HR* FentaNYL (PF) 100 MCG/2 ML VIAL ONE (20:01)
--- NOTE | 2018-07-31 20:12 | Event Note ---
Date of Encounter: 07/31/18 Time of Encounter: 20:00 Mr. Martínez had just completed his breathing treatment at 8 PM and was informed by nursing that his heart rate continued to elevate. I had just completed a phone call with [facility] to discuss his transfer which the daughter had wanted. [facility] transfer center took the information and said they would call back if beds would be available and if he is accepted for transfer. Upon seeing the patient he was on BiPAP and was extremely uncomfortable appearing to be in respiratory distress with accessory muscle use. His heart rate was 188. EKG was ordered and shows SVT. He is receiving 5 mg of metoprolol. Spoke with the patient and he said he was in pain and wanted to be comfortable. His daughter also wanted him to be comfortable subsequently his Precedex drip was increased from 1 mcg to to 1.4 mcg. Due to pain he also received 50 mL of IV fentanyl. Both him and the daughter were agreeable and want him pain-free and comfortable since they are against any cardioversion. Additionally his breathing treatments have been changed from DuoNeb to Xopenex. His heart rate does not improve she will receive 12 mg of adenosine.
[2018-07-31] MEDS: *HR* Metoprolol 5 MG/5 ML VIAL IVP PRN (20:18)
[2018-07-31] MEDS: Levalbuterol Neb 1.25 MG/3 ML IH SCH (23:52)
[2018-08-01] MEDS: Levalbuterol Neb 1.25 MG/3 ML IH SCH ×9 (00:05→23:25)
[2018-08-01] MEDS: *HR* FentaNYL (PF) 100 MCG/2 ML VIAL IVP PRN (02:47)
[2018-08-01] MEDS: *HR* LORazepam 2 MG/ML VIAL IVP PRN ×3 (02:47→12:30)
[2018-08-01] MEDS: *HR* OxyCODONE/APAP 5/325 TABLET PO SCH ×2 (05:21→08:38)
[2018-08-01] MEDS: Pantoprazole 40 MG VIAL IVP SCH (05:27)
[2018-08-01] MEDS: *HR* Heparin 5,000 UNIT/ML VIAL SQ SCH ×2 (05:27→18:17)
[2018-08-01 06:54] LABS: Adenovirus Not Detected (Not Detect); Coronavirus 229E Not Detected (Not Detect); Coronavirus HKU1 Not Detected (Not Detect); Coronavirus NL63 Not Detected (Not Detect); Coronavirus OC43 Not Detected (Not Detect); Human Metapneumovirus Not Detected (Not Detect); Human Rhinovirus/Enterovirus Not Detected (Not Detect); Influenza A Subtype 2009 H1 Not Detected (Not Detect); Influenza A Untypeable Not Detected (Not Detect); Influenza B Not Detected (Not Detect); Parainfluenza Virus 1 Not Detected (Not Detect); Parainfluenza Virus 2 Not Detected (Not Detect); Parainfluenza Virus 3 Not Detected (Not Detect); Parainfluenza Virus 4 Not Detected (Not Detect)
[2018-08-01 06:55] LABS: Bordetella Pertussis Not Detected (Not Detect); Chlamydophila pneumoniae Not Detected (Not Detect); Mycoplasma pneumoniae Not Detected (Not Detect); Respiratory Syncytial Virus DETECTED (Not Detect)
[2018-08-01] MEDS: Budesonide Neb 0.5 MG/2 ML IH SCH ×2 (07:36→20:14)
--- NOTE | 2018-08-01 08:03 | Pulmonology Progress Note ---
<Jluis Grider Luz - Last Filed: 08/01/18 15:07> Date of Encounter: 08/01/18 Time of Encounter: 08:03 Assessment and Plan (1) Acute exacerbation of chronic obstructive airways disease Status: Acute Acute respiratory failure with hypoxia and hypercapnia secondary to acute COPD exacerbation Patient was intubated earlier in hospital course, extubated after one day, has since been on and off BiPAP/CPAP He also completed a 5 day course of Levaquin and has been on consistent doses of 40 mg IV Solu-Medrol every 8 hours The patient's baseline respiratory status is extremely poor as is his prognosis He continues to decompensate on and off BiPAP, does not want intubation His significant respiratory distress continues to lead to tachycardia and hypertension Goals of care discussion was had multiple times that the patient He is continuously repeated that he is tired of continued treatment He has declared that he does not want to make decisions in his plan of care and appointed his daughter to make all decisions Discussion on plan of care was had with family as described in history of present illness Patient will be transferred to palliative unit for comfort care Fentanyl drip in place, when necessary Ativan, supplemental oxygen and other supportive care as needed Palliative team following, appreciate recommendations (2) Acute respiratory failure with hypoxia and hypercapnia Status: Acute (3) Goals of care, counseling/discussion Status: Acute Subjective Principal diagnosis: COPD, acute on chronic respiratory failure Interval history: Goals of care discussion was had with patient's family this morning. It was discussed that the patient would be unlikely to recover any further pulmonary function here or at a tertiary center. It was discussed that the patient's current respiratory function is likely to be his new baseline and would likely only decline. The patient has stated that he does not want to be involved in plans of care and that he would like his daughter Tia to make any decisions. She stated that given the patient's current condition he would not likely want to continue in this fashion and that he would most likely want to have comfort care only. The decision was made to proceed with comfort care and transfer the patient to palliative unit. Dr. Sloan with palliative was present for this conversation and agreed with the plan of care. Objective PUL Vital signs: Last Vital Signs Temp 97.6 F 08/01/18 04:25 Pulse 119 08/01/18 06:00 Resp 20 08/01/18 07:37 BP 135/83 08/01/18 06:00 Pulse Ox 95 08/01/18 07:37 General appearance: agitated, appears uncomfortable, other (Acute respiratory distress) Eyes: nonicteric ENT: oropharynx dry (Secondary to oxygen mask) Neck: supple Effort: very labored Auscultation: bilateral: diminished breath sounds (Significantly diminished breath sounds, breath sounds minimally present in the apices, wheezy), wheezes Cardiovascular: other (Tachycardic rate and regular rhythm) Gastrointestinal: normoactive bowel sounds (Distended abdomen) Integumentary: normal Extremities: no cyanosis, no edema Musculoskeletal: no deformities Gait: other (Patient sitting up in bed, leaning forward in respiratory distress) normal mental status, non-focal exam anxious Results - Laboratory Findings CBC and BMP: 07/31/18 04:20 07/31/18 04:20 ABG ABG pH 7.31 pH Units (7.32-7.45) L 07/28/18 05:03 ABG pCO2 51 mmHg (35-45) H 07/28/18 05:03 ABG pO2 87 mmHg (85-104) 07/28/18 05:03 ABG O2 Saturation 96 % (95-98) 07/28/18 05:03 Abnormal lab findings: Abnormal lab results RBC 4.09 M/mcL (4.19-5.50) L 07/31/18 04:20 Plt Count 120 K/mcL (140-400) L 07/31/18 04:20 ABG pH 7.31 pH Units (7.32-7.45) L 07/28/18 05:03 ABG pCO2 51 mmHg (35-45) H 07/28/18 05:03 ABG Total CO2 27 mEq/L (20-26) H 07/28/18 05:03 BUN 25 mg/dL (6-20) H 07/31/18 04:20 Creatinine 0.47 mg/dL (0.70-1.30) L 07/31/18 04:20 BUN/Creatinine Ratio 53 (6-26) H 07/31/18 04:20 Glucose 143 mg/dL (70-105) H 07/31/18 04:20 POC Glucose 112 mg/dL (70-99) H 07/31/18 16:09 Calculated Osmolality 301 (280-300) H 07/31/18 04:20 Venous Ioniz Calcium 1.09 mmol/L (1.15-1.35) L 07/30/18 15:17 Troponin I 0.06 ng/mL (< 0.04) H* 07/27/18 22:34 RSV (PCR) DETECTED (Not Detect) A 08/01/18 05:35 - Microbiology Findings Microbiology Findings: Microbiology, Last 48 Hours 07/27/18 04:32 Blood Culture - Final Peripheral Venipuncture No growth. Final report. 07/27/18 04:32 Blood Culture - Final Peripheral Venipuncture No growth. Final report. - Clinical Findings Intake & Output: Intake & Output 07/31/18 08/01/18 08/01/18 23:59 07:59 15:59 Intake Total 100 / 100 Output Total 150 / 150 175 / 175 Balance -50 / -50 -175 / -175 Consult Discharge Plan - Plan Referrals: NONE,PCP [Primary Care Provider] - <Milo Larios - Last Filed: 08/03/18 00:02> Date of Encounter: 08/03/18 Objective PUL Vital signs: Last Vital Signs Temp 97.6 F 08/01/18 07:50 Pulse 119 08/01/18 06:00 Resp 20 08/01/18 07:37 BP 135/83 08/01/18 06:00 Pulse Ox 95 08/01/18 07:37 Results - Laboratory Findings CBC and BMP: 07/31/18 04:20 07/31/18 04:20 ABG ABG pH 7.31 pH Units (7.32-7.45) L 07/28/18 05:03 ABG pCO2 51 mmHg (35-45) H 07/28/18 05:03 ABG pO2 87 mmHg (85-104) 07/28/18 05:03 ABG O2 Saturation 96 % (95-98) 07/28/18 05:03 Abnormal lab findings: Abnormal lab results RBC 4.09 M/mcL (4.19-5.50) L 07/31/18 04:20 Plt Count 120 K/mcL (140-400) L 07/31/18 04:20 ABG pH 7.31 pH Units (7.32-7.45) L 07/28/18 05:03 ABG pCO2 51 mmHg (35-45) H 07/28/18 05:03 ABG Total CO2 27 mEq/L (20-26) H 07/28/18 05:03 BUN 25 mg/dL (6-20) H 07/31/18 04:20 Creatinine 0.47 mg/dL (0.70-1.30) L 07/31/18 04:20 BUN/Creatinine Ratio 53 (6-26) H 07/31/18 04:20 Glucose 143 mg/dL (70-105) H 07/31/18 04:20 POC Glucose 112 mg/dL (70-99) H 07/31/18 16:09 Calculated Osmolality 301 (280-300) H 07/31/18 04:20 Venous Ioniz Calcium 1.09 mmol/L (1.15-1.35) L 07/30/18 15:17 Troponin I 0.06 ng/mL (< 0.04) H* 07/27/18 22:34 RSV (PCR) DETECTED (Not Detect) A 08/01/18 05:35 - Microbiology Findings Microbiology Findings: Microbiology, Last 48 Hours 07/27/18 04:32 Blood Culture - Final Peripheral Venipuncture No growth. Final report. 07/27/18 04:32 Blood Culture - Final Peripheral Venipuncture No growth. Final report. - Clinical Findings Intake & Output: Intake & Output 07/31/18 08/01/18 08/01/18 23:59 07:59 15:59 Intake Total 100 / 100 100 / 100 Output Total 150 / 150 325 / 325 Balance -50 / -50 -225 / -225 - Attending Attestation I examined this patient and my medical decision-making was reviewed with the Resident Physician. I agree with the documented findings, disposition and treatment plan as described except to the extent set forth below. Patient seen and examined. Labs, radiology, chart personally reviewed. 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 Patient lethargic Pulmonary: Acceptable oxygenation and ventilation and patient is tolerating NIV and continue bronchodilators. Family meeting with family and they wanted him to be only comfort care and patient will be transfer to palliative beds. Cardiovascular: hypertension is under better control GI: Nutrition per dietary and GI prophylaxis per routine Heme: DVT prophylaxis per routine ID:Completed antibiotics Renal; urine out put and renal funtion reviewed Endorcine: blood glucose is monitored Lines: all lines checked and no evidence of infections Skin: skin care to prevent pressure ulcers per nursing routine care Overall poor prognosis and expect poor outcome
[2018-08-01] MEDS: MethylPREDNISolone 40 MG/ML VIAL IVP SCH (08:37)
[2018-08-01] MEDS: Chlorhexidine Rinse 15 ML MOUTHWASH MM SCH ×2 (08:37→21:32)
[2018-08-01] MEDS: Thiamine (B-1) 100 MG TABLET PO SCH (08:37)
[2018-08-01] MEDS: Dexmedetomidine HCl 400 MCG/100 ML MLS IVC SCH ×3 (08:40→18:14)
--- NOTE | 2018-08-01 08:53 | Electrocardiograph Report ---
[place] [id number] Test Date: 2018-07-31 Pat Name: Christopher Martínez Department: 109 Room: [facility] Gender: M Chairman Emeritus: : 1960 Requested By: Keisha Roa Order Number: [id number] Reading MD: Buddy Perea Measurements Intervals [place] Rate: 175 P: NV: 0 QRS: 61 QRSD: 74 T: 90 QT: 228 QTc: 322 Interpretive Statements SUPRAVENTRICULAR TACHYCARDIA NONSPECIFIC ST & T-WAVE ABNORMALITY ABNORMAL RHYTHM ECG Electronically Signed On 08-01-2018 8:51:33 EDT by Buddy Perea
[2018-08-01] MEDS: MORPHINE SUL Oral CONC 10 MG/0.5 ML ORAL.SYG SL PRN ×3 (10:39→19:55)
[2018-08-01] MEDS: Insulin LISPRO 300 UNITS/3 ML VIAL SQ SCH ×2 (10:39→18:17)
[2018-08-01] MEDS ORDERED: MORPHINE SUL Oral CONC 10 MG/0.5 ML ORAL.SYG SL PRN (11:27)
[2018-08-01] MEDS ORDERED: Dextrose Gel 15 GM/37.5 ML TUBE PO PRN ×2 (12:22)
[2018-08-01] MEDS ORDERED: Albuterol 2.5 MG/3 ML NEBULIZER IH PRN (12:22)
[2018-08-01] MEDS ORDERED: D5% in Water 1,000 ML IVC PRN (12:22)
[2018-08-01] MEDS ORDERED: *HR* LORazepam 2 MG/ML VIAL IVP PRN ×3 (12:22)
[2018-08-01] MEDS ORDERED: *HR* Metoprolol 5 MG/5 ML VIAL IVP PRN (12:22)
[2018-08-01] MEDS ORDERED: *HR* Dextrose 50 % in Water (Syg) 50 ML SYRINGE IVP PRN (12:22)
[2018-08-01] MEDS ORDERED: *HR* FentaNYL (PF) 100 MCG/2 ML VIAL IVP PRN (12:22)
[2018-08-01] MEDS ORDERED: Dexmedetomidine HCl 400 MCG/100 ML MLS IVC ONE (13:23)
--- NOTE | 2018-08-01 13:32 | Palliative Progress Note ---
Date of Encounter: 08/01/18 Time of Encounter: 11:00 - Assessment and plan (1) Dyspnea Current Visit: Yes Status: Acute Assessment and plan: Patient remains dyspneic, he received 1 dose of fentanyl IV and 1 of morphine PO. He remains on precedex gtt. Patient cannot be transferred out of ICU on precedex drip, Due to respiratory distress, will start fentanyl gtt 50 mcg, titrate and wean off precedex. (2) Encounter for palliative care Current Visit: Yes Status: Acute Assessment and plan: Met with patient's daughter Shannon, patient's father Kj, aunt and brother. Patient has deferred all decision making to daughter, and she did not want the conversation to occur in patient's room. Family discussed again the options. Explained that patient has been in ICU for 5 days now, he has advanced disease and remains in respiratry distress, impending intubation. Family is adamant that patient would not want to be re-intubated, witch is in line with patient's expressed wishes. They decided to de-escalate care and pursue comfort measures only, and discontinue all measures not geared toward comfort. DNRCC form was signed. Plan is to discontinue BiPAP, treat SOB and anxiety and allow the natural course of the disease. Patient to be transferred out of ICU under hospitalist care, if stabilizes by tomorrow, will admit to hospice GIP. (3) COPD exacerbation Current Visit: No Status: Acute Assessment and plan: comfort measures only will discontinue steroids Oxygen support, oxymask, weaning. On fentanyl drip. (4) Acute respiratory failure with hypoxia and hypercapnia Current Visit: Yes Status: Acute - Time Spent With Patient Total time spent is greater than 50% in coordination of care (as documented) at patient's floor/unit and/or counseling patient: 25 - 35 minutes - Subjective Interval history: Patient was off BiPAP this morning, on Oxymask 15L, 02sat 99%. He appeared in respiratory distress, using accessory muscles, speaking in short sentences. Family at the bedside. - Constitutional Vitals: Abnormal lab results RBC 4.09 M/mcL (4.19-5.50) L 07/31/18 04:20 Plt Count 120 K/mcL (140-400) L 07/31/18 04:20 ABG pH 7.31 pH Units (7.32-7.45) L 07/28/18 05:03 ABG pCO2 51 mmHg (35-45) H 07/28/18 05:03 ABG Total CO2 27 mEq/L (20-26) H 07/28/18 05:03 BUN 25 mg/dL (6-20) H 07/31/18 04:20 Creatinine 0.47 mg/dL (0.70-1.30) L 07/31/18 04:20 BUN/Creatinine Ratio 53 (6-26) H 07/31/18 04:20 Glucose 143 mg/dL (70-105) H 07/31/18 04:20 POC Glucose 112 mg/dL (70-99) H 07/31/18 16:09 Calculated Osmolality 301 (280-300) H 07/31/18 04:20 Venous Ioniz Calcium 1.09 mmol/L (1.15-1.35) L 07/30/18 15:17 Troponin I 0.06 ng/mL (< 0.04) H* 07/27/18 22:34 RSV (PCR) DETECTED (Not Detect) A 08/01/18 05:35 Exam: General appearance: Present: average body habitus - Eye Eye exam: Present: PERRL. Absent: periorbital swelling, scleral icterus - Respiratory Respiratory exam: Present: accessory muscle use, chest wall tenderness, decreased breath sounds, diffused wheezes, tachypnea - Cardiovascular Cardiovascular exam: Present: RRR, +S1, +S2. Absent: +S3, +S4, tachycardia - GI/Abdominal Exam GI/Abdominal exam: Present: normal bowel sounds, soft. Absent: distended, guarding, mass, rebound, tenderness - Extremities Exam Extremities exam: Present: calf tenderness (L calf fenderness. + [place]'s on L. No signs of erythema or swelling in LE b/l.). Absent: joint swelling, pedal edema - Neurological Exam Neurological exam: Present: alert, altered, oriented X3, no focal deficits. Absent: facial droop, speech deficit - Psychiatric Psychiatric exam: Present: anxious - Skin Skin exam: Present: intact, normal color. Absent: cyanosis, diaphoretic, erythe ma, rash Palliative Quality Palliative Quality: Screen for Code Status: Yes, Screen for Goals of Care: Yes, Screen for Pain: Yes, If Pain Regimen Started, Initiate Bowel Regimen: Yes, Screen for Nausea/Vomitting: Yes Code Status: 07/29/18 11:39 Resuscitation Status: Active [RES] Routine Comment: Resuscitation Status: [id number] Resuscitation Status: Active [RES] Routine Comment: Resuscitation Status: DNR-Comfort Care - Labs CBC & Chem 7: 07/31/18 04:20 07/31/18 04:20 Labs: Laboratory Results - last 24 hr 07/31/18 07/31/18 07/31/18 04:19 08:14 11:44 POC Glucose 118 H 146 H 153 H Chlamy pneumoniae PCR Adenovirus (PCR) B. pertussis DNA (PCR) B.parapertussis DNA PCR Coronavirus OC43 (PCR) Coronavirus HKU1 (PCR) Coronavirus 229E (PCR) Coronavirus NL63 (PCR) Human Metapneumovir PCR Influenza A (H1) PCR Influ A (H1N1/09) PCR Influenza A (H3) PCR Influenza A Untype (PCR) Influenza Type B (PCR) M.pneumoniae DNA (PCR) Parainfluenza 1 (PCR) Parainfluenza 2 (PCR) Parainfluenza 3 (PCR) Parainfluenza 4 (PCR) RSV (PCR) Entero/Rhino (PCR) 07/31/18 08/01/18 16:09 05:35 POC Glucose 112 H Chlamy pneumoniae PCR Not Detected Adenovirus (PCR) Not Detected B. pertussis DNA (PCR) Not Detected B.parapertussis DNA PCR Not Detected Coronavirus OC43 (PCR) Not Detected Coronavirus HKU1 (PCR) Not Detected Coronavirus 229E (PCR) Not Detected Coronavirus NL63 (PCR) Not Detected Human Metapneumovir PCR Not Detected Influenza A (H1) PCR Not Detected Influ A (H1N1/09) PCR Not Detected Influenza A (H3) PCR Not Detected Influenza A Untype (PCR) Not Detected Influenza Type B (PCR) Not Detected M.pneumoniae DNA (PCR) Not Detected Parainfluenza 1 (PCR) Not Detected Parainfluenza 2 (PCR) Not Detected Parainfluenza 3 (PCR) Not Detected Parainfluenza 4 (PCR) Not Detected RSV (PCR) DETECTED A Entero/Rhino (PCR) Not Detected - ABG Interpretation ABG results: ABG ABG pH 7.31 pH Units (7.32-7.45) L 07/28/18 05:03 ABG pCO2 51 mmHg (35-45) H 07/28/18 05:03 ABG pO2 87 mmHg (85-104) 07/28/18 05:03 ABG O2 Saturation 96 % (95-98) 07/28/18 05:03 Palliative Scale - Palliative Performance Scale How ambulatory is this patient?: Mainly sit / lie What is patient's level of activity and evidence of disease?: Unable hobby/housework, Significant disease How much self-care assistance does patient require?: Mainly assistance What is this patient's level of consciousness?: Full or confusion Palliative Performance Score: 40 % Consult Discharge Plan - Plan Referrals: NONE,PCP [Primary Care Provider] -
[2018-08-01] MEDS: FentaNYL (PF) 1,000 MCG in 0.9 % Sodium Chloride 80 ML IVC SCH (13:59)
[2018-08-01] MEDS ORDERED: MethylPREDNISolone 40 MG/ML VIAL IVP SCH (16:00)
[2018-08-01] MEDS ORDERED: Levalbuterol Neb 1.25 MG/3 ML IH PRN (20:38)
[2018-08-01] MEDS: Docusate Oral Soln 100 MG/10 ML UDC PO SCH (21:32)
[2018-08-02] MEDS: MORPHINE SUL Oral CONC 10 MG/0.5 ML ORAL.SYG SL PRN ×5 (00:36→15:02)
[2018-08-02] MEDS ORDERED: diazePAM 10 MG/2 ML SYRINGE IVP ONE ×2 (01:45→03:44)
[2018-08-02 03:17] VITALS: BP 163/86
[2018-08-02] MEDS: Levalbuterol Neb 1.25 MG/3 ML IH SCH ×4 (03:25→15:53)
[2018-08-02] MEDS: *HR* Heparin 5,000 UNIT/ML VIAL SQ SCH (04:43)
[2018-08-02] MEDS: FentaNYL (PF) 1,000 MCG in 0.9 % Sodium Chloride 80 ML IVC SCH ×2 (05:20→11:21)
[2018-08-02] MEDS ORDERED: Pantoprazole 40 MG VIAL IVP SCH (06:30)
--- NOTE | 2018-08-02 07:04 | Event Note ---
Date of Encounter: 08/02/18 Time of Encounter: 01:18 Alerted by patient's nurse FELICE gillespie that patient stated he was having a really hard time breathing and was written the face and anxious. Patient had been transferred from ICU to a several hours previously. Patient CODE STATUS DNRCC. Patient on CIWA protocol. Receiving IV Fentanyl and morphine for pain which pt. and daughter state is poorly controlled. Went to see pt. immediately who was obviously SOB and dyspneic while on Oxymask. IVP Valium ordered once. Alerted by nurse several hours later that she would like pt. back in ICU since pain was not being well-controlled. I went to see daughter and explained that the pt. is DNRCC and won't be going back to ICU as he is comfort care. I told her that I would make sure that we stayed on top of his pain control. Pt. placed on BiPAP during this time and appeared more at ease. Additional one-time dose of IVP Valium ordered to help patient tolerate BiPAP. Daughter expressed agreement and understanding to our plan of care. Instructed daughter to notify me immediately via the nurse if she needed anything additionally. Instructed nurse to continue monitoring patient closely and notify me immediately of any adverse changes.
[2018-08-02] MEDS: Budesonide Neb 0.5 MG/2 ML IH SCH (07:16)
[2018-08-02] MEDS: Insulin LISPRO 300 UNITS/3 ML VIAL SQ SCH ×2 (07:45→11:48)
[2018-08-02] MEDS ORDERED: Sennosides 8.6 MG TABLET PO SCH (09:00)
[2018-08-02] MEDS ORDERED: Thiamine (B-1) 100 MG TABLET PO SCH (09:00)
[2018-08-02] MEDS ORDERED: *HR* LORazepam 2 MG/ML VIAL IVP PRN (09:19)
[2018-08-02] MEDS: Chlorhexidine Rinse 15 ML MOUTHWASH MM SCH (09:31)
[2018-08-02] MEDS: Docusate Oral Soln 100 MG/10 ML UDC PO SCH (09:47)
--- NOTE | 2018-08-02 10:35 | Palliative Progress Note ---
<Bruce Miranda - Last Filed: 08/02/18 10:13> Date of Encounter: 08/02/18 Time of Encounter: 09:30 - Assessment and plan (1) Dyspnea Current Visit: Yes Status: Acute Assessment and plan: On fetanyl ggt 50 mcg. Off of precedex. Patient appears to still be dyspneic but improved from before. - Continue fentaly gtt 50 mcg. (2) Acute respiratory failure with hypoxia and hypercapnia Current Visit: Yes Status: Acute Assessment and plan: Off BiPAP. On 15 L HFNC. O2 saturation of 99%. - Discontinue BiPAP. (3) Acute exacerbation of chronic obstructive airways disease Current Visit: Yes Status: Acute Assessment and plan: - comfort measures only - discontinued steroids - Oxygen support, oxymask, weaning. - On fentanyl drip. (4) Alcohol abuse Current Visit: Yes Status: Acute Assessment and plan: History of alcohol dependence. - On CIWA protocol. - Increase ativan to 2 mg q1H PRN. - Time Spent With Patient Total time spent is greater than 50% in coordination of care (as documented) at patient's floor/unit and/or counseling patient: - Subjective Interval history: When seen today, patient did not admit to any pain. He did appear to be having heaving breathing. He also did appeared to be confused. He was seen drinking soda and tolerating PO intake. - Constitutional Vitals: Abnormal lab results RBC 4.09 M/mcL (4.19-5.50) L 07/31/18 04:20 Plt Count 120 K/mcL (140-400) L 07/31/18 04:20 ABG pH 7.31 pH Units (7.32-7.45) L 07/28/18 05:03 ABG pCO2 51 mmHg (35-45) H 07/28/18 05:03 ABG Total CO2 27 mEq/L (20-26) H 07/28/18 05:03 BUN 25 mg/dL (6-20) H 07/31/18 04:20 Creatinine 0.47 mg/dL (0.70-1.30) L 07/31/18 04:20 BUN/Creatinine Ratio 53 (6-26) H 07/31/18 04:20 Glucose 143 mg/dL (70-105) H 07/31/18 04:20 POC Glucose 112 mg/dL (70-99) H 08/01/18 03:44 Calculated Osmolality 301 (280-300) H 07/31/18 04:20 Venous Ioniz Calcium 1.09 mmol/L (1.15-1.35) L 07/30/18 15:17 Troponin I 0.06 ng/mL (< 0.04) H* 07/27/18 22:34 RSV (PCR) DETECTED (Not Detect) A 08/01/18 05:35 General appearance: Present: average body habitus, mild distress - Respiratory Respiratory exam: Present: accessory muscle use, decreased breath sounds, respiratory distress, wheezes (B/L). Absent: chest wall tenderness - Cardiovascular Cardiovascular exam: Present: RRR, +S1, +S2. Absent: +S3, +S4 - GI/Abdominal GI/Abdominal exam: Present: normal bowel sounds, soft. Absent: distended, guarding, rebound, tenderness - Extremities Exam Extremities exam: Present: normal capillary refill. Absent: calf tenderness, pedal edema, tenderness Additional comments: pedal pulses intact and symmetrical b/l. - Psychiatric Psychiatric exam: Present: normal affect, normal mood Additional comments: Confused to situation. - Skin Skin exam: Present: dry, intact. Absent: cyanosis, erythema Palliative Quality Palliative Quality: Screen for Code Status: Yes, Screen for Goals of Care: Yes, Screen for Pain: Yes, If Pain Regimen Started, Initiate Bowel Regimen: Yes, Screen for Nausea/Vomitting: Yes Code Status: 07/29/18 11:39 Resuscitation Status: Active [RES] Routine Comment: Resuscitation Status: [id number] Resuscitation Status: Active [RES] Routine Comment: Resuscitation Status: DNR-Comfort Care - Labs CBC & Chem 7: 07/31/18 04:20 07/31/18 04:20 Labs: Laboratory Results - last 24 hr 08/01/18 03:44 POC Glucose 112 H - ABG Interpretation ABG results: ABG ABG pH 7.31 pH Units (7.32-7.45) L 07/28/18 05:03 ABG pCO2 51 mmHg (35-45) H 07/28/18 05:03 ABG pO2 87 mmHg (85-104) 07/28/18 05:03 ABG O2 Saturation 96 % (95-98) 07/28/18 05:03 Palliative Scale - Palliative Performance Scale How ambulatory is this patient?: Mainly sit / lie What is patient's level of activity and evidence of disease?: Unable hobby/housework, Significant disease How much self-care assistance does patient require?: Mainly assistance What is this patient's level of consciousness?: Full or confusion Palliative Performance Score: 40 % Consult Discharge Plan - Plan Referrals: NONE,PCP [Primary Care Provider] - <Dorothy Sloan - Last Filed: 08/02/18 11:57> Date of Encounter: 08/02/18 - Assessment and plan (1) Dyspnea Current Visit: Yes Status: Acute (2) Encounter for palliative care Current Visit: Yes Status: Acute Assessment and plan: Patient in palliative care status per known patient's wishes and family decision. Appears actively dying. goal is comfort. (3) COPD exacerbation Current Visit: No Status: Acute (4) Acute respiratory failure with hypoxia and hypercapnia Current Visit: Yes Status: Acute - Time Spent With Patient Total time spent is greater than 50% in coordination of care (as documented) at patient's floor/unit and/or counseling patient: - Constitutional Vitals: Abnormal lab results RBC 4.09 M/mcL (4.19-5.50) L 07/31/18 04:20 Plt Count 120 K/mcL (140-400) L 07/31/18 04:20 ABG pH 7.31 pH Units (7.32-7.45) L 07/28/18 05:03 ABG pCO2 51 mmHg (35-45) H 07/28/18 05:03 ABG Total CO2 27 mEq/L (20-26) H 07/28/18 05:03 BUN 25 mg/dL (6-20) H 07/31/18 04:20 Creatinine 0.47 mg/dL (0.70-1.30) L 07/31/18 04:20 BUN/Creatinine Ratio 53 (6-26) H 07/31/18 04:20 Glucose 143 mg/dL (70-105) H 07/31/18 04:20 POC Glucose 112 mg/dL (70-99) H 08/01/18 03:44 Calculated Osmolality 301 (280-300) H 07/31/18 04:20 Venous Ioniz Calcium 1.09 mmol/L (1.15-1.35) L 07/30/18 15:17 Troponin I 0.06 ng/mL (< 0.04) H* 07/27/18 22:34 RSV (PCR) DETECTED (Not Detect) A 08/01/18 05:35 - Attending Attestation I performed a history and physical examination of the patient and discussed his management with the resident. I reviewed the residents note and agree with the documented findings and plan of care, except as follow: Patient this morning was in acute respiratory distress, using accessory muscles, shallow abdominal breathing. Overnight he was uncomfortable and was placed on Bipap, now he is refusing oxygen. On fentanyl drip 125mcg/hr. Instructed nurse to titrate the drip up. Added Ativan 2 mg q1hr. Bipap was removed from the room as previously discussed with the family. Palliative Quality Code Status: 07/29/18 11:39 Resuscitation Status: Active [RES] Routine Comment: Resuscitation Status: [id number] Resuscitation Status: Active [RES] Routine Comment: Resuscitation Status: DNR-Comfort Care - Labs CBC & Chem 7: 07/31/18 04:20 07/31/18 04:20 Labs: Laboratory Results - last 24 hr 08/01/18 03:44 POC Glucose 112 H - ABG Interpretation ABG results: ABG ABG pH 7.31 pH Units (7.32-7.45) L 07/28/18 05:03 ABG pCO2 51 mmHg (35-45) H 07/28/18 05:03 ABG pO2 87 mmHg (85-104) 07/28/18 05:03 ABG O2 Saturation 96 % (95-98) 07/28/18 05:03
[2018-08-02] MEDS ORDERED: Atropine 1% Opth Drops 100 DROP/5 ML BOTTLE SL PRN (15:53)
[2018-08-02] MEDS ORDERED: Scopolamine Patch 1.5 MG PATCH.TD72 TD SCH (16:00)
--- NOTE | 2018-08-02 17:39 | Death Note ---
Discharge Sum: Summary - Date and Time Date of admission: 07/27/18 02:23 Date of : 08/02/18 Time of : 16:05 - Summary Details: 57 y/o male with hx of alcohol abuse and COPD presented to ED with respiratory distress. He was intubated in ED and admitted to ICU. Mr Martínez was admitted to ICU. Pt ultimately extubated to bipap but continued to have respiratory distress. He was seen by palliative and did not want reintubation. He was placed on bipap but continued to decline. He was made DNRCC and peacefully today. - Additional Data Confirmation of as documented by pronouncing clinician: no pulse, no respirations, no heart sounds Family: at bedside Attending/PCP notified?: Yes Attending physician: Eldon Mcintyre MD Was code activated?: No Autopsy requested?: No telecommunications facility examiner notified?: No Organ bank notified?: No Advance directives: Yes Hospice patient?: No Discharge Sum: Diag - PCOD Probable Cause of : Respiratory arrest Discharge Sum: Prov - Provider Primary care physician: PCP NONE Admitting clinician: Eldon Mcintyre Attending physician on admission: Eldon Mcintyre Consults: 07/27/18 04:35 Consult to Pulmonology [CONS] Routine Consulting Provider: [facility] Reason for Consult: intubated patient Call Completed: Yes 07/28/18 17:08 Consult to [place] [CONS] Routine Reason for SW Consult: Chronic alcoholic 07/28/18 17:17 Consult to [place] [CONS] Routine Reason for SW Consult: CHRONIC ALCOHOLISM 07/29/18 09:10 Consult to Nurse Navigator [CONS] Routine Comment: COPD 07/29/18 10:58 Consult to Palliative Care [CONS] Routine Comment: Consulting Provider: Palliative Care [facility] Reason for Consult: end stage copd Call Completed: No Pronouncing clinician: Mahesh Cooper
[2018-08-05] MEDS ORDERED: CloNIDine Patch 0.1 MG PATCH (WEEKLY) TD SCH (11:00)
== END 2018-08-02 16:05 | disposition expired | DRG 208 ==
LOC: EMEROOARM 00:07 → ICNU 02:23 → 2ANU 08-01 23:00
PROVIDERS: ADMIT Family Medicine; ATTEND Family Medicine